=== PATIENT | male | born 1930 | race Native Hawaiian/Other Pacific Islander ===

== ENCOUNTER 2016-07-09 02:35 | Inpatient (IN) | payer MEDICARE, MEDICAID ==
--- NOTE | 2016-07-09 02:48 | ED PDOC ---
Arrival/HPI - General Chief Complaint: Shortness Of Breath Time Seen by Provider: 07/09/16 02:45 Historian: Patient - History of Present Illness Narrative History of Present Illness (Text): 07/09/16 02:47 John Novak is an 85 year old male, whose past medical history includes severe COPD (oxygen/steroid dependent), severe aortic stenosis, severe aortic regurgitation, and postherpetic neuralgia, who presents to the ED brought in by EMS for shortness of breath tonight. Patient was given Duoneb and IV fluids in the field. Limited HPI and ROS due to language barrier. Time/Duration: Other (tonight) Symptom Onset: Gradual Symptom Course: Unchanged Activities at Onset: Rest, Light Context: Home Past Medical History - Provider Review Nursing Documentation Reviewed: Yes - Infectious Disease Hx of Infectious Diseases: None - Tetanus Immunization Tetanus Immunization: Unknown - Cardiac Hx Pacemaker: No - Pulmonary Hx Respiratory Disorders: Yes Hx Asthma: No Hx Bronchitis: No Hx Chronic Obstructive Pulmonary Disease (COPD): Yes Hx Emphysema: Yes Hx Pneumonia: Yes Hx Respiratory Aspiration: No Hx Respiratory Tract Infection: No Hx Sleep Apnea: No Hx Tuberculosis: No - Neurological Hx Paralysis: No - HEENT Hx HEENT Disorder: Yes (glassees) Hx Cataracts: Yes (had sx b/l) - Renal Hx Renal Disorder: No - Endocrine/Metabolic Hx Endocrine Disorders: No - Hematological/Oncological Hx Blood Transfusions: No Hx Blood Transfusion Reaction: No - Integumentary Other/Comment: herpes zoster with neuralgia x 3 yrs, 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 Bilateral upper extremities multiple purple and red skin discolorations, right elbow dressing covering red iv attempt site, skin is thin, bilateral lower extremity multiple red and brown skin discolorations - Musculoskeletal/Rheumatological Hx Musculoskeletal Disorders: No - Gastrointestinal Hx Gastrointestinal Disorders: Yes Hx Colostomy: No Hx Crohn's Disease: No Hx Diverticulitis: No Hx Gall Bladder Disease: No Hx Gastroesophageal Reflux: No Hx Gastrointestinal Ulcer: No Hx Ileostomy: No Hx Liver Failure: No Hx Pancreatitis: No HX Swallowing Problems: No - Genitourinary/Gynecological Hx Prostate Problems: No (pt denies) Other/Comment: hx urinary retention. - Psychiatric Hx Emotional Abuse: No Hx Physical Abuse: No Hx Substance Use: No - Past Surgical History Past Surgical History: No Previous - Surgical History Hx Cardiac Catheterization: Yes Other/Comment: gastric polyp - Anesthesia Hx Anesthesia Reactions: No - Suicidal Assessment Feels Threatened In Home Enviroment: No Family/Social History - Physician Review Nursing Documentation Reviewed: Yes Family/Social History: No Known Family HX Smoking Status: Current Some Days Smoker Hx Alcohol Use: Yes (1 SCOTCH DAILY as per previous triage) Amount per day: 2 Hx Substance Use: No Hx Substance Use Treatment: No Allergies/Home Meds Allergies/Adverse Reactions: Allergies No Known Allergies Allergy (Verified 06/15/16 09:49) as per chemical tester phone Home Medications: Home Meds Medication Instructions Recorded Confirmed Esomeprazole Magnesium [Nexium] 40 mg PO DAILY 08/08/12 07/09/16 Arformoterol [Brovana] 1 armando IH BID 09/30/14 07/09/16 Budesonide [Pulmicort Respules] 0.25 mg IH TID 02/09/16 07/09/16 Prednisone 10 mg PO BID 02/09/16 07/09/16 Albuterol/Ipratropium [Combivent 1 puff IH QID 06/12/16 07/09/16 Respimat] Alendronate Sodium 70 mg PO QWK 06/12/16 07/09/16 Furosemide [Lasix] 20 mg PO DAILY 06/12/16 07/09/16 Lidocaine 5% [Lidoderm] 1 ea TD DAILY 06/12/16 07/09/16 Linaclotide [Linzess] 145 mcg PO DAILY 06/12/16 07/09/16 Pravastatin Sodium [Pravachol] 40 mg PO DAILY 06/12/16 07/09/16 Tamsulosin [Flomax] 0.4 mg PO DAILY 06/12/16 07/09/16 Review of Systems - Review of Systems Systems not reviewed;Unavailable: Language Barrier Respiratory: SOB Physical Exam Vital Signs Reviewed: Yes Vital Signs Temp Pulse Resp BP Pulse Ox 07/09/16 04:50 117 H 24 156/86 H 99 07/09/16 03:30 95 H 22 175/78 H 91 L 07/09/16 03:21 164/75 H 07/09/16 03:00 95 07/09/16 02:46 99.1 F 101 H 26 H 192/85 H 99 07/12/00 05:29 136 H 99 07/12/00 05:00 136 H 147/99 H 99 07/12/00 04:00 128 H 123/76 100 07/12/00 03:00 131 H 141/76 100 07/12/00 02:00 136 H 139/64 100 07/12/00 01:07 131 H 153/91 H 100 07/12/00 01:01 125 H 181/94 H 100 07/12/00 01:00 123 H 100 07/12/00 00:52 119 H 100 07/12/00 00:00 140 H 121/74 98 07/11/00 23:01 70 162/67 H 99 07/11/00 23:00 71 99 07/11/00 22:59 72 100 07/11/00 22:12 71 100 07/11/00 22:00 71 118/68 100 07/11/00 21:00 70 110/60 99 07/11/00 20:00 68 117/57 L 99 07/11/00 19:00 67 132/62 99 07/11/00 18:30 64 109/50 L 98 07/11/00 18:00 69 147/51 L 97 07/11/00 17:59 67 99 07/11/00 17:30 67 146/70 97 07/11/00 17:00 65 105/45 L 99 07/11/00 16:30 64 112/50 L 98 07/11/00 16:00 63 133/59 L 99 07/11/00 15:30 61 141/68 99 07/11/00 15:00 62 109/57 L 99 07/11/00 14:30 63 93/50 L 99 07/11/00 14:23 65 99 07/11/00 14:00 66 102/42 L 98 07/11/00 13:30 65 159/59 H 97 07/11/00 13:00 67 144/63 96 07/11/00 12:30 135 H 120/78 96 07/11/00 12:01 139 H 150/86 07/11/00 12:00 148 H 07/11/00 11:59 136 H 97 07/11/00 11:30 136 H 154/83 H 98 07/11/00 11:00 118 H 120/84 96 07/11/00 10:30 126 H 156/88 H 89 L 07/11/00 10:01 161 H 97 07/11/00 10:00 160 H 144/82 95 07/11/00 09:30 84 150/78 96 07/11/00 09:00 140 H 119/69 100 07/11/00 08:30 133 H 116/46 L 100 07/11/00 08:00 67 97/57 L 99 07/11/00 07:31 69 100 07/11/00 07:30 64 109/59 L 100 07/11/00 07:12 62 108/53 L 100 07/11/00 07:00 59 L 115/57 L 100 07/11/00 06:30 60 116/59 L 100 07/11/00 06:00 61 112/49 L 100 07/11/00 05:30 63 152/67 H 100 07/11/00 05:02 64 100 07/11/00 05:00 64 146/66 100 07/11/00 04:30 64 146/65 100 07/11/00 04:00 64 144/66 100 07/11/00 03:30 64 129/67 100 07/11/00 03:00 64 123/63 100 07/11/00 02:31 56 L 100 07/11/00 02:30 56 L 131/63 100 07/11/00 02:00 59 L 118/64 100 07/11/00 01:30 59 L 120/64 100 07/11/00 01:00 64 124/62 100 07/11/00 00:38 65 100 07/11/00 00:30 64 117/65 100 07/11/00 00:00 64 126/65 100 07/10/00 23:30 57 L 108/61 100 07/10/00 23:00 61 121/68 100 07/10/00 22:30 63 103/55 L 100 07/10/00 22:00 57 L 104/54 L 100 07/10/00 21:30 63 107/60 100 07/10/00 21:00 76 103/56 L 100 07/10/00 20:30 63 108/63 100 07/10/00 20:18 63 100 07/10/00 20:00 63 120/63 100 07/10/00 19:30 59 L 130/68 100 07/10/00 19:00 64 141/65 100 07/10/00 18:51 66 126/73 100 07/10/00 18:30 129 H 108/57 L 100 07/10/00 18:12 126 H 100 07/10/00 18:00 132 H 106/83 100 07/10/00 17:30 145 H 73/36 L 100 07/10/00 17:14 134 H 76/39 L 100 07/10/00 17:12 126 H 96/55 L 100 07/10/00 17:00 61 181/79 H 100 07/10/00 16:40 60 165/72 H 100 07/10/00 16:33 67 100 07/10/00 16:20 66 144/71 100 07/10/00 16:18 68 139/72 100 07/10/00 16:09 72 77/44 L 100 07/10/00 16:07 71 15 86/47 L 100 07/10/00 16:00 72 24 160/79 H 100 07/10/00 15:40 160 H 82/52 L 100 07/10/00 15:20 139 H 77/43 L 100 07/10/00 15:00 70/38 L 07/10/00 14:59 139 H 100 07/10/00 14:40 139 H 75/30 L 100 07/10/00 14:30 148 H 75/47 L 100 07/10/00 14:22 119 H 07/10/00 14:20 120 H 79/38 L 100 07/10/00 14:02 121 H 100 07/10/00 14:00 125 H 86/51 L 100 07/10/00 13:40 142 H 71/35 L 100 07/10/00 13:28 143 H 78/39 L 100 07/10/00 13:27 150 H 07/10/00 13:20 146 H 80/38 L 100 07/10/00 13:00 143 H 80/52 L 100 07/10/00 12:52 146 H 100 07/10/00 12:40 149 H 106/51 L 100 07/10/00 12:20 147 H 84/45 L 100 07/10/00 12:17 159 H 100 07/10/00 12:08 142 H 70/47 L 100 07/10/00 12:00 146 H 65/37 L 100 07/10/00 11:40 142 H 74/39 L 100 07/10/00 11:33 140 H 70/45 L 100 07/10/00 11:20 142 H 62/36 L 100 07/10/00 11:02 172 H 76/30 L 100 07/10/00 11:00 171 H 77/50 L 100 07/10/00 10:58 175 H 100 07/10/00 10:40 175 H 104/56 L 100 07/10/00 10:32 173 H 80/41 L 100 07/10/00 10:18 161 H 73/41 L 100 07/10/00 10:00 86 73/46 L 100 07/10/00 09:01 90 147/94 H 99 07/10/00 09:00 93 H 100 07/10/00 08:51 96 H 30 H 83/63 L 07/10/00 08:50 97 H 25 H 99 07/10/00 08:49 87 20 0/0 L 98 07/10/00 08:48 95 H 17 68/45 L 93 L 07/10/00 08:46 96 H 38 H 86/50 L 99 07/10/00 08:45 98 H 106/45 L 96 07/10/00 08:44 104 H 19 116/78 97 07/10/00 08:43 107 H 66 H 0/0 L 95 07/10/00 08:42 148 H 29 H 180/84 H 91 L 07/10/00 08:25 112 H 29 H 98 07/10/00 08:00 98 H 28 H 177/92 H 98 07/10/00 07:00 95 H 20 181/78 H 97 07/10/00 06:53 96 H 41 H 97 07/10/00 06:00 102 H 29 H 167/68 H 98 07/10/00 05:00 88 20 151/64 H 99 07/10/00 04:00 87 17 154/66 H 97 07/10/00 03:00 85 26 H 157/75 H 99 07/10/00 02:00 92 H 18 143/75 99 07/10/00 01:00 90 13 145/68 98 07/10/00 00:00 91 H 32 H 158/71 H 98 07/09/00 23:00 90 24 150/62 99 07/09/00 22:00 88 18 141/74 100 07/09/00 21:00 93 H 44 H 136/76 84 L 07/09/00 20:00 98 H 32 H 156/76 H 97 07/09/00 19:01 92 H 36 H 144/56 L 96 07/09/00 19:00 88 38 H 83 L 07/09/00 18:00 92 H 34 H 144/72 100 07/09/00 17:00 87 21 141/72 99 07/09/00 16:01 95 H 31 H 107/63 100 07/09/00 16:00 96 H 22 07/09/00 15:55 95 H 33 H 96 07/09/00 15:01 89 30 H 127/69 98 07/09/00 15:00 90 17 67 L 07/09/00 14:00 94 H 98/74 L 99 07/09/00 13:59 91 H 22 99 07/09/00 13:00 95 H 31 H 119/60 89 L 07/09/00 12:48 91 H 46 H 105/53 L 99 07/09/00 12:00 98 H 19 100 07/09/00 11:00 101 H 33 H 121/67 100 07/09/00 10:20 97 H 25 H 130/74 98 07/09/00 10:00 99 H 26 H 96 07/09/00 09:00 95 H 20 117/49 L 98 07/09/00 08:00 90 18 134/71 96 07/09/00 07:00 96 H 142/73 94 L 07/09/00 06:11 91 H 23 97 07/09/00 06:01 97 H 21 162/55 H 95 07/09/00 06:00 96 H 33 H 94 L 07/09/00 05:58 96 H 24 157/78 H 96 07/09/00 05:53 96 H 27 H Temperature: Afebrile Blood Pressure: Hypertensive Pulse: Regular Respiratory Rate: Normal Appearance: Positive for: Well-Appearing, Non-Toxic, Comfortable Pain Distress: None Mental Status: Positive for: Alert and Oriented X 3 - Systems Exam Head: Present: Atraumatic, Normocephalic Pupils: Present: PERRL Extroacular Muscles: Present: EOMI Conjunctiva: Present: Normal Mouth: Present: Moist Mucous Membranes Neck: Present: Normal Range of Motion Respiratory/Chest: Present: Rales. No: Accessory Muscle Use Cardiovascular: Present: Regular Rate and Rhythm, Normal S1, S2. No: Murmurs Abdomen: Present: Normal Bowel Sounds. No: Tenderness, Distention, Peritoneal Signs Back: Present: Normal Inspection Upper Extremity: Present: Normal Inspection. No: Cyanosis, Edema Lower Extremity: Present: Normal Inspection. No: Edema Neurological: Present: GCS=15, CN II-XII Intact, Speech Normal Skin: Present: Warm, Dry, Normal Color. No: Rashes Psychiatric: Present: Alert, Oriented x 3, Normal Insight, Normal Concentration Medical Decision Making ED Course and Treatment: 07/09/16 02:47 Impression: 85 year old male complaining of shortness of breath tonight. Differential Diagnosis include but are not limited to: CHF vs. COPD vs. ACS vs. pneumonia Plan: -- EKG -- Chest X-ray -- Labs, cardiac enzymes, BNP, VBG, blood cultures -- Reassess and disposition Prior Visits: Notes and results from previous visits were reviewed. On 06/12/2016, pt was seen in the ED for worsening shortness of breath. Pt admitted to the hospital for further evaluation. Progress Notes: Reviewed EKG, sinus tachycardia at 103 bpm[address] Non-specific ST/T wave changes. 07/09/16 02:56 Reviewed radiology, Chest X-ray shows CHF. Lasix ordered. 07/09/16 03:49 Pt placed on BiPAP. Case discussed with medical planner business administration teacher, who is aware and agrees with plan. 07/09/16 04:[address] Rooney, housekeeping supervisor, who is aware and agrees to evaluate pt in ED. 07/09/16 04:[address] Rooney, present in ED to evaluate pt, states pt can go to ICU. 07/09/16 04:[address] Farias, covering for Dr. Craig, who is aware and agrees with plan. Pt will be admitted to ICU for CHF under Dr. Craig's service. Requests Dr. Arroyo on consult. - Critical Care Critical Care Minutes: 30 minutes Narrative Critical Care (Text): Management of CHF - Lab Interpretations Microbiology Results: Microbiology Results 07/09/16 04:00 Blood-Venous Blood Culture - Preliminary NO GROWTH AFTER 3 DAYS 07/09/16 03:05 Blood-Venous Blood Culture - Preliminary NO GROWTH AFTER 3 DAYS Lab Results: 07/09/16 03:05 07/09/16 03:05 Lab Results 07/09/16 03:05: WBC 11.2 H, RBC 4.30, Hgb 12.2 L, Hct 38.9 L, MCV 90.5, MCH 28.4 , MCHC 31.4, RDW 15.6 H, Plt Count 139, MPV 9.4, Gran % 88.1 H, Lymph % (Auto) 5.7 L, Rolette % (Auto) 6.1 H, Eos % (Auto) 0.0 L, Baso % (Auto) 0.1, Gran # 9.82 H , Lymph # 0.6 L, Rolette # 0.7 H, Eos # 0.0, Baso # 0.01, PT 10.0, INR 0.93, pO2 105 H, VBG pH 7.25 L, VBG pCO2 81.0 H*, VBG HCO3 35.5 H, VBG Total CO2 38.0 H, VBG O2 Sat (Calc) 98.6 H, VBG Base Excess 5.4 H, VBG Potassium 4.9, Glucose 123 H, Lactate 0.8, FiO2 21.0, Sodium 135.0, Potassium 4.7, Chloride 101.0, Carbon Dioxide 33, Anion Gap 11, BUN 24 H, Creatinine 0.7, Est GFR ( Amer) > 60 , Est GFR (Non-Af Amer) > 60, Random Glucose 127 H, Calcium 8.5, Total Bilirubin 0.6, AST 36, ALT 25, Alkaline Phosphatase 56, Lactate Dehydrogenase 451, Total Creatine Kinase 30 L, Troponin I 0.02 D, NT-Pro-B Natriuret Pep 2730 H, Total Protein 6.4, Albumin 3.5, Globulin 2.9, Albumin/Globulin Ratio 1.2 , Venous Blood Potassium 4.9 I have reviewed the lab results: Yes - RAD Interpretation Radiology Orders: 07/09/16 02:49 CHEST PORTABLE [RAD] Stat - EKG Interpretation Interpreted by ED Physician: Yes Type: 12 lead EKG - Medication Orders Current Medication Orders: Acetaminophen (Tylenol 650 Mg Supp) 650 mg RC Q6H PRN PRN Reason: Fever >100.4 F Last Admin: 07/11/16 11:27 Dose: 650 MG Albuterol/Ipratropium (Duoneb 3 Mg/0.5 Mg (3 Ml) Ud) 3 ml IH Q2H PRN PRN Reason: Shortness of Breath Albuterol/Ipratropium (Duoneb 3 Mg/0.5 Mg (3 Ml) Ud) 3 ml IH [id number] [facility] Last Admin: 07/12/16 07:30 Dose: 3 ML Enoxaparin Sodium (Lovenox) 30 mg SC DAILY MISSY PRN Reason: Protocol Last Admin: 07/10/16 10:07 Dose: 30 MG Subcutaneous Administrations Document 07/10/16 10:07 ALIPM (Rec: 07/10/16 10:07 [id number]) Injection Site MAR Injection Site Left Abdomen Charges for Administration # of Subcutaneous Administrations 1 Furosemide (Lasix) 40 mg IVP Q12 [facility] Last Admin: 07/10/16 21:34 Dose: 40 MG MAR Blood Pressure Document 07/10/16 21:34 AMA (Rec: 07/10/16 21:34 AMA [id number]) Blood Pressure Blood Pressure (100/60-150/90) 107/60 IVP Administration Document 07/10/16 21:34 AMA (Rec: 07/10/16 21:34 AMA [id number]) Charges for Administration # of IVP Administrations 1 Ceftriaxone Sodium (Rocephin 1 Gram Ivpb) 100 mls @ 100 mls/hr IVPB DAILY [facility] PRN Reason: Protocol Last Admin: 07/11/16 09:05 Dose: 100 MLS/HR eMAR Start Stop Document 07/11/16 09:05 [facility] (Rec: 07/11/16 09:05 [id number]) Intravenous Solution Start Date 07/11/16 Start Time 11:30 End Date 07/11/16 End time 12:30 Total Infusion Time 60 Fentanyl Citrate (Fentanyl Citrate/Sodium Chloride 1 Mg/100 Ml) 100 mls @ 2 mls /hr IV .Q24H PRN; Protocol; 20 MCG/HR PRN Reason: TITRATE PER MD ORDER Last Titration: 07/11/16 07:17 Dose: 0 MCG/HR Titration Intervention Document 07/11/16 07:17 ALIPM (Rec: 07/11/16 07:29 [id number][facility] Titration Dosing Titration Dose 0 IV Rate 0 Intake/Decrease Pause Midazolam 100 mg/100ml in NS (Midazolam 100 Mg/100ml In Ns) 100 mls @ 1 mls/hr IV .Q24H PRN; Protocol; 1 MG/HR PRN Reason: Agitation Last Titration: 07/11/16 07:17 Dose: 0 MG/HR Titration Intervention Document 07/11/16 07:17 ALIPM (Rec: 07/11/16 07:[address] [id number]) Titration Dosing Titration Dose 0 IV Rate 0 Intake/Decrease Pause Phenylephrine HCl 40 mg/ (Sodium Chloride) 254 mls @ 38.1 mls/hr IV .Q6H40M PRN ; Protocol; 100 MCG/MIN PRN Reason: TITRATE PER MD ORDER Last Titration: 07/11/16 07:15 Dose: 0 MCG/MIN Titration Intervention Document 07/11/16 07:15 ALIPM (Rec: 07/11/16 07:[address] [id number]) Titration Dosing Titration Dose 0 IV Rate 0 Intake/Decrease Pause Heparin Sodium/Sodium Chloride (Heparin 00578 Units/250ml 1/2 Normal Saline) 250 mls @ 9.144 mls/hr IV .Q24H PRN; Protocol; 18 UNITS/KG/HR PRN Reason: ADJUST RATE PER PROTOCOL Last Admin: 07/11/16 22:48 Dose: 8.128 MLS/HR Titration Intervention Document 07/11/16 22:48 NATACHA (Rec: 07/11/16 22:49 NATACHA [id number]) Titration Intake Container Volume 250 Titration Dosing Titration Dose 16 IV Rate 8.128 Intake/Decrease Running eMAR Start Stop Document 07/11/16 22:48 NATACHA (Rec: 07/11/16 22:49 NATACHA [id number]) Intravenous Solution Start Date 07/11/16 Start Time 22:48 End Date 07/12/16 End time 10:00 Total Infusion Time 672 Doxycycline Hyclate 100 mg/ (Sodium Chloride) 100 mls @ 100 mls/hr IVPB Q12 MISSY PRN Reason: Protocol Last Admin: 07/11/16 22:43 Dose: 100 MLS/HR eMAR Start Stop Document 07/11/16 22:43 NATACHA (Rec: 07/11/16 22:44 NATACHA [id number]) Intravenous Solution Start Date 07/11/16 Start Time 22:43 End Date 07/11/16 End time 23:43 Total Infusion Time 60 MEROPENEM-0.9% SODIUM CHLORIDE (Meropenem 1g/Ns 100ml Ivpb) 100 mls @ 100 mls/ hr IVPB Q12 MISSY PRN Reason: Protocol Stop: 07/16/16 10:01 Last Admin: 07/11/16 22:42 Dose: 100 MLS/HR eMAR Start Stop Document 07/11/16 22:42 NATACHA (Rec: 07/11/16 22:43 NATACHA [id number]) Intravenous Solution Start Date 07/11/16 Start Time 22:43 End Date 07/11/16 End time 23:43 Total Infusion Time 60 Methylprednisolone (Solu-Medrol) 40 mg IVP Q12 [facility] Last Admin: 07/11/16 22:46 Dose: 40 MG IVP Administration Document 07/11/16 22:46 JGLORIA (Rec: 07/11/16 22:46 JGLORIA [id number]) Charges for Administration # of IVP Administrations 1 Pantoprazole Sodium (Protonix Inj) 40 mg IVP DAILY [facility] Last Admin: 07/11/16 09:05 Dose: 40 MG IVP Administration Document 07/11/16 09:05 ALIPM (Rec: 07/11/16 09:[address] [id number]) Charges for Administration # of IVP Administrations 1 Discontinued Medications Acetaminophen (Tylenol 325 Mg Supp) 325 mg RC Q6H PRN PRN Reason: Fever >100.4 F Albuterol/Ipratropium (Duoneb 3 Mg/0.5 Mg (3 Ml) Ud) Confirm Administered Dose 6 ml .ROUTE .STK-MED ONE Stop: 07/09/16 03:48 Amiodarone HCl (Amiodarone 150mg/3 Ml Vial) Confirm Administered Dose 150 mg .ROUTE .STK-MED ONE Stop: 07/10/16 11:08 Digoxin (Lanoxin) 0.125 mg IVP ONCE ONE Stop: 07/11/16 08:44 Last Admin: 07/11/16 08:54 Dose: 0.125 MG MAR Apical Pulse Rate Document 07/11/16 08:54 ALIPM (Rec: 07/11/16 08:[address] [id number]) Apical Pulse Rate Apical Pulse Rate (60-90 beats/min) 154 IVP Administration Document 07/11/16 08:54 ALIPM (Rec: 07/11/16 08:[address] [id number]) Charges for Administration # of IVP Administrations 1 Digoxin (Lanoxin) 0.25 mg IVP ONCE ONE Stop: 07/11/16 13:15 Last Admin: 07/11/16 13:47 Dose: 0.25 MG MAR Apical Pulse Rate Document 07/11/16 13:47 ALIPM (Rec: 07/11/16 13:[address] [id number]) Apical Pulse Rate Apical Pulse Rate (60-90 beats/min) 65 IVP Administration Document 07/11/16 13:47 ALIPM (Rec: 07/11/16 13:[address] [id number]) Charges for Administration # of IVP Administrations 1 Furosemide (Lasix) 40 mg IVP ONCE ONE Stop: 07/09/16 02:57 Last Admin: 07/09/16 03:21 Dose: 40 MG MAR Blood Pressure Document 07/09/16 03:21 [email or web address] (Rec: 07/09/16 03:21 [email or web address] [id number]) Blood Pressure Blood Pressure (100/60-150/90) 164/75 IVP Administration Document 07/09/16 03:21 [email or web address] (Rec: 07/09/16 03:21 [email or web address] [id number]) Charges for Administration # of IVP Administrations 1 Furosemide (Lasix) Confirm Administered Dose 40 mg .ROUTE .STK-MED ONE Stop: 07/09/16 03:04 Last Admin: 07/09/16 03:19 Dose: Haloperidol Lactate (Haldol) 1 mg IVP STAT STA PRN Reason: Protocol Stop: 07/10/16 04:29 Last Admin: 07/10/16 05:07 Dose: 1 MG Behavioural Document 07/10/16 05:07 RODRIGUEZ (Rec: 07/10/16 05:07 RODRIGUEZ [id number]) Behavior Behavior for Medication: Anxiety IVP Administration Document 07/10/16 05:07 RODRIGUEZ (Rec: 07/10/16 05:07 RODRIGUEZ [id number]) Charges for Administration # of IVP Administrations 1 Heparin Sodium (Porcine) (Heparin) 3,600 units IV ONCE ONE PRN Reason: Protocol Stop: 07/10/16 17:47 Last Admin: 07/10/16 17:56 Dose: 3,600 UNITS eMAR Start Stop Document 07/10/16 17:56 ALIPM (Rec: 07/10/16 17:[address] [id number]) Intravenous Solution Start Date 07/10/16 Start Time 17:56 End Date 07/10/16 End time 18:00 Total Infusion Time 4 Levofloxacin/Dextrose (Levaquin 500mg) 100 mls @ 100 mls/hr IVPB DAILY MISSY Last Admin: 07/10/16 10:07 Dose: 100 MLS/HR eMAR Start Stop Document 07/10/16 10:07 ALIPM (Rec: 07/10/16 10:[address] [id number]) Intravenous Solution Start Date 07/10/16 Start Time 10:07 End Date 07/10/16 End time 11:07 Total Infusion Time 60 Propofol (Diprivan) Confirm Administered Dose 100 mls @ ud .ROUTE .STK-MED ONE Stop: 07/10/16 08:37 Last Admin: 07/10/16 08:56 Dose: 50 MG Sodium Chloride (Sodium Chloride 0.9%) 1,000 mls @ 999 mls/hr IV .Q1H1M STA Stop: 07/10/16 09:56 Last Admin: 07/10/16 08:56 Dose: 999 MLS/HR eMAR Start Stop Document 07/10/16 08:56 ALIPM (Rec: 07/10/16 10:[address] [id number]) Intravenous Solution Start Date 07/10/16 Start Time 08:56 End Date 07/10/16 End time 09:56 Total Infusion Time 60 Amiodarone HCl/Dextrose (Nexterone 150 Mg In Dextrose 100 Ml (Premix)) 100 mls @ 600 mls/hr IVPB ONCE ONE PRN Reason: Protocol Stop: 07/10/16 11:14 Last Admin: 07/10/16 11:12 Dose: 600 MLS/HR eMAR Start Stop Document 07/10/16 11:12 ALIPM (Rec: 07/10/16 11:[address] [id number]) Intravenous Solution Start Date 07/10/16 Start Time 11:13 End Date 07/10/16 End time 11:23 Total Infusion Time 10 Sodium Chloride (Sodium Chloride 0.9%) 1,000 mls @ 999 mls/hr IV .Q1H1M STA Stop: 07/10/16 12:05 Last Admin: 07/10/16 11:18 Dose: 999 MLS/HR eMAR Start Stop Document 07/10/16 11:18 ALIPM (Rec: 07/10/16 11:[address] [facility] [id number]) Intravenous Solution Start Date 07/10/16 Start Time 11:18 End Date 07/10/16 End time 12:18 Total Infusion Time 60 Sodium Chloride (Sodium Chloride 0.9%) 1,000 mls @ 999 mls/hr IV .Q1H1M STA Stop: 07/10/16 13:15 Last Admin: 07/10/16 12:15 Dose: 999 MLS/HR eMAR Start Stop Document 07/10/16 12:15 ALIPM (Rec: 07/10/16 12:[address] [facility] [id number]) Intravenous Solution Start Date 07/10/16 Start Time 12:15 End Date 07/10/16 End time 13:15 Total Infusion Time 60 Amiodarone HCl/Dextrose (Nexterone 150 Mg In Dextrose 100 Ml (Premix)) 100 mls @ 600 mls/hr IVPB ONCE ONE PRN Reason: Protocol Stop: 07/10/16 13:51 Last Admin: 07/10/16 13:51 Dose: 600 MLS/HR eMAR Start Stop Document 07/10/16 13:51 ALIPM (Rec: 07/10/16 13:[address] [facility] [id number]) Intravenous Solution Start Date 07/10/16 Start Time 13:52 End Date 07/10/16 End time 14:02 Total Infusion Time 10 Sodium Chloride (Sodium Chloride 0.9%) 1,000 mls @ 999 mls/hr IV .Q1H1M STA Stop: 07/10/16 14:43 Last Admin: 07/10/16 13:53 Dose: 999 MLS/HR eMAR Start Stop Document 07/10/16 13:53 ALIPM (Rec: 07/10/16 13:[address] [facility] [id number]) Intravenous Solution Start Date 07/10/16 Start Time 13:53 End Date 07/10/16 End time 14:53 Total Infusion Time 60 Sodium Chloride (Sodium Chloride 0.9%) 1,000 mls @ 999 mls/hr IV .Q1H1M STA Stop: 07/10/16 17:26 Last Admin: 07/10/16 17:02 Dose: 999 MLS/HR eMAR Start Stop Document 07/10/16 17:02 ALIPM (Rec: 07/10/16 17:02 ALIPM [id number]) Intravenous Solution Start Date 07/10/16 Start Time 17:02 End Date 07/10/16 End time 18:02 Total Infusion Time 60 Amiodarone HCl/Dextrose (Nexterone 360 Mg In D5w 200 Ml (Premix)) 200 mls @ 33.333 mls/hr IV .Q6H MISSY; 1 MG/MIN PRN Reason: Protocol Stop: 07/10/16 23:54 Last Admin: 07/10/16 17:37 Dose: 33.333 MLS/HR eMAR Start Stop Document 07/10/16 17:37 ALIPM (Rec: 07/10/16 17:37 ALIPM [id number]) Intravenous Solution Start Date 07/10/16 Start Time 17:37 Amiodarone HCl/Dextrose (Nexterone 360 Mg In D5w 200 Ml (Premix)) 200 mls @ 16.667 mls/hr IV .Q12H MISSY; 0.5 MG/MIN PRN Reason: Protocol Stop: 07/11/16 15:56 Last Admin: 07/11/16 11:26 Dose: 16.667 MLS/HR MAR Pulse and Blood Pressure Document 07/11/16 11:26 ALIPM (Rec: 07/11/16 11:26 ALIPM [id number]) Pulse Pulse Rate (60-90) 131 Blood Pressure Blood Pressure (100/60-150/90) 120/84 eMAR Start Stop Document 07/11/16 11:26 ALIPM (Rec: 07/11/16 11:26 ALIPM [id number]) Intravenous Solution Start Date 07/11/16 Start Time 11:26 Vancomycin HCl (Vancomycin 1gm) 250 mls @ 167 mls/hr IVPB STAT STA PRN Reason: Protocol Stop: 07/11/16 09:41 Last Admin: 07/11/16 08:57 Dose: 167 MLS/HR eMAR Start Stop Document 07/11/16 08:57 ALIPM (Rec: 07/11/16 08:58 ALIPM [id number]) Intravenous Solution Start Date 07/11/16 Start Time 08:57 End Date 07/11/16 End time 11:00 Total Infusion Time 123 Methylprednisolone (Solu-Medrol) 60 mg IVP Q12 MISSY Last Admin: 07/10/16 21:34 Dose: 60 MG IVP Administration Document 07/10/16 21:34 AMA (Rec: 07/10/16 21:34 AMA [id number]) Charges for Administration # of IVP Administrations 1 Metoprolol Tartrate (Lopressor) 5 mg IVP ONCE STA Stop: 07/11/16 10:10 Last Admin: 07/11/16 10:14 Dose: 5 MG MAR Pulse and Blood Pressure Document 07/11/16 10:14 ALIPM (Rec: 07/11/16 10:14 ALIPM [id number]) Pulse Pulse Rate (60-90) 153 Blood Pressure Blood Pressure (100/60-150/90) 144/82 IVP Administration Document 07/11/16 10:14 ALIPM (Rec: 07/11/16 10:14 ALIPM [id number]) Charges for Administration # of IVP Administrations 1 Metoprolol Tartrate (Lopressor) Confirm Administered Dose 5 mg IVP .STK-MED ONE Stop: 07/12/16 00:40 Metoprolol Tartrate (Lopressor) 2.5 mg IVP ONCE ONE Stop: 07/12/16 00:39 Last Admin: 07/12/16 00:46 Dose: 2.5 MG MAR Pulse and Blood Pressure Document 07/12/16 00:46 JZI (Rec: 07/12/16 00:47 JZI [id number]) Pulse Pulse Rate (60-90) 159 Blood Pressure Blood Pressure (100/60-150/90) 121/74 IVP Administration Document 07/12/16 00:46 JZI (Rec: 07/12/16 00:47 JZI [id number]) Charges for Administration # of IVP Administrations 1 Midazolam HCl (Versed Inj) 5 mg IVP ONCE STA Stop: 07/11/16 13:01 Last Admin: 07/11/16 13:10 Dose: 5 MG IVP Administration Document 07/11/16 13:10 ALIPM (Rec: 07/11/16 13:10 ALIPM [id number]) Charges for Administration # of IVP Administrations 1 Morphine Sulfate (Morphine) 2 mg IVP STAT STA Stop: 07/09/16 02:58 Last Admin: 07/09/16 03:22 Dose: 2 MG MAR Pain Assessment Document 07/09/16 03:22 [email or web address] (Rec: 07/09/16 03:23 [email or web address] [id number]) Pain Reassessment Is this a pain reassessment? No Sleep Is patient sleeping during reassessment? No Presence of Pain Presence of Pain Yes Pain Scale Used Pain Scale Used Numeric Location Pain Location Body Site Chest Description Description Constant Intensity of Pain at present 8 Pain Behavior Facial Grimacing Aggravating Factors Changing Position Alleviating Factors/Management Position Change Techniques Alleviating Factors Medication IVP Administration Document 07/09/16 03:22 [email or web address] (Rec: 07/09/16 03:23 [email or web address] [id number]) Charges for Administration # of IVP Administrations 1 Morphine Sulfate (Morphine) Confirm Administered Dose 2 mg .ROUTE .STK-MED ONE Stop: 07/09/16 03:04 Last Admin: 07/09/16 03:19 Dose: Pantoprazole Sodium (Protonix Inj) 40 mg IVP Q12 MISSY Last Admin: 07/10/16 21:35 Dose: 40 MG IVP Administration Document 07/10/16 21:35 AMA (Rec: 07/10/16 21:35 AMA [id number]) Charges for Administration # of IVP Administrations 1 Propofol (Diprivan) 5 mg IVP ONCE ONE Stop: 07/10/16 08:57 Last Admin: 07/10/16 08:56 Dose: - Scribe Statement The provider has reviewed the documentation as recorded by the Dioni Gibson Provider Attestation: All medical record entries made by the Juan Cibimtiaz were at my direction and personally dictated by me. I have reviewed the chart and agree that the record accurately reflects my personal performance of the history, physical exam, medical decision making, and the department course for this patient. I have also personally directed, reviewed, and agree with the discharge instructions and disposition. Disposition/Present on Arrival - Present on Arrival Any Indicators Present on Arrival: No History of DVT/PE: No History of Uncontrolled Diabetes: No Urinary Catheter: No History of Decub. Ulcer: No History Surgical Site Infection Following: None - Disposition Have Diagnosis and Disposition been Completed?: Yes Diagnosis: COPD (chronic obstructive pulmonary disease), Congestive heart failure Disposition: HOSPITALIZED Disposition Time: 04:40 Condition: FAIR
[2016-07-09] MEDS ORDERED: Morphine 2 mg/ml ISec IVP STA (02:57)
[2016-07-09] MEDS ORDERED: Morphine 2 mg/ml ISec ONE (03:03)
[2016-07-09 03:18] LABS: ADD MANUAL DIFF? NO
[2016-07-09 03:22] LABS: VENOUS BLOOD GAS BASE EXCESS 5.4 mmol/L (0.0-2.0); VENOUS BLOOD PH 7.25 (7.32-7.43)
[2016-07-09 03:26] LABS: BASO # 0.01 [, K/mm3] (0.0-2.0); BASO % 0.1 % (0.0-3.0); GRAN # 9.82 (1.4-6.5); GRAN % 88.1 % (50.0-68.0); HEMATOCRIT 38.9 % (42.0-52.0); LYMPH # 0.6 (1.2-3.4); LYMPH % 5.7 % (22.0-35.0); MEAN CELL VOLUME 90.5 fL (80.0-105.0); MEAN CORPUSCULAR HEMOGLOBIN 28.4 pg (25.0-35.0); MEAN CORPUSCULAR HGB CONC 31.4 g/dl (31.0-37.0); MEAN PLATELET VOLUME 9.4 fl (7.0-11.0); MONO # 0.7 (0.1-0.6); MONO % 6.1 % (1.0-6.0); PLATELET COUNT 139 [, 10^3/uL] (120.0-450.0); RED CELL DISTRIBUTION WIDTH 15.6 % (11.5-14.5); WHITE BLOOD COUNT 11.2 [, 10^3/ul] (4.5-11.0)
[2016-07-09 03:31] LABS: INR 0.93 (0.93-1.08)
[2016-07-09 03:38] LABS: ALB/GLOB RATIO 1.2 (1.1-1.8); ALKALINE PHOSPHATASE 56 U/L (38-133); ALT/SGPT 25 U/L (7-56); AST/SGOT 36 U/L (15-59); BILIRUBIN,TOTAL 0.6 mg/dL (0.2-1.3); BLOOD UREA NITROGEN 24 mg/dL (7-21); CALCIUM 8.5 mg/dL (8.4-10.5); CARBON DIOXIDE 33 mmol/L (21-33); CHLORIDE 95 mmol/L (98-107); GFR AFRICAN-AMERICAN > 60; GLUCOSE,RANDOM 127 mg/dL (70-110); POTASSIUM 4.7 mmol/L (3.6-5.0); SODIUM 134 mmol/L (132-148); TOTAL PROTEIN 6.4 g/dL (5.8-8.3)
[2016-07-09] MEDS ORDERED: Albuterol-Ipratrop 3 mg / 0.5 (3 ml) UD ONE (03:47)
[2016-07-09 03:50] LABS: TROPONIN I 0.02 ng/mL
[2016-07-09] MEDS ORDERED: Albuterol-Ipratrop 3 mg / 0.5 (3 ml) UD IH PRN (04:45)
[2016-07-09] MEDS: MethylPREDNISolone 40 mg Vial IVP SCH ×2 (05:11→22:35)
--- NOTE | 2016-07-09 05:38 | CP.PCM.CON ---
<Bakari Delgado - Last Filed: 07/09/16 05:26> History of Present Illness - History of Present Illness History of Present Illness: ICU consult note Bakari Delgado, PGY-1 Internal Medicine HPI: This is an 85 yo Armenian M with PMH severe COPD (oxygen/steroid dependent) , abdominal mass identified on CT, progressive weight loss, severe aortic stenosis, severe aortic regurgitation, urinary retention, and postherpetic neuralgia, who presents to the ED for shortness of breath tonight. ROS and HPI are limited due to language barrier (patient and accompanying family speak only Armenian) and malfunction of pipe layer screen available in the ED (unable to connect to translating service despite multiple attempts). Information obtained from prior charting and from information provided by ED. Patient was given Duoneb and IV fluids in the field. At time of exam, was on Bipap in the ED but otherwise resting comfortably. Was last seen for similar complaint at [facility] on 06/12/16, discharged on 06/13/16 after refusing to stay for further testing /monitoring. PMH: as above PSH: Cardiac cath, Gastric polyp removal SHx: Still sometimes smoker, 1-2 ppd for 6 years down to intermittently smoking a few cigarettes; denies alcohol or drug use (as of 06/12/16) FHx: non-contributory PMD: Dr. Craig Review of Systems - Review of Systems Systems not reviewed;Unavailable: Language Barrier (patient and family are Armenian-speaking only, pipe layer system malfunctioning and not available at time of exam) Past Patient History - Infectious Disease Hx of Infectious Diseases: None - Tetanus Immunizations Tetanus Immunization: Unknown - Past Social History Smoking Status: Current Some Days Smoker - CARDIAC Hx Pacemaker: No - PULMONARY Hx Respiratory Disorders: Yes Hx Asthma: No Hx Bronchitis: No Hx Chronic Obstructive Pulmonary Disease (COPD): Yes Hx Emphysema: Yes Hx Pneumonia: Yes Hx Respiratory Aspiration: No Hx Respiratory Tract Infection: No Hx Sleep Apnea: No Hx Tuberculosis: No - NEUROLOGICAL Hx Paralysis: No - HEENT Hx HEENT Problems: Yes (glassees) Hx Cataracts: Yes (had sx b/l) - RENAL Hx Chronic Kidney Disease: No - ENDOCRINE/METABOLIC Hx Endocrine Disorders: No - HEMATOLOGICAL/ONCOLOGICAL Hx Blood Transfusions: No Hx Blood Transfusion Reaction: No - INTEGUMENTARY Other/Comment: herpes zoster with neuralgia x 3 yrs, 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 Bilateral upper extremities multiple purple and red skin discolorations, right elbow dressing covering red iv attempt site, skin is thin, bilateral lower extremity multiple red and brown skin discolorations - MUSCULOSKELETAL/RHEUMATOLOGICAL Hx Musculoskeletal Disorders: No - GASTROINTESTINAL Hx Gastrointestinal Disorders: Yes Hx Colostomy: No Hx Crohn's Disease: No Hx Diverticulitis: No Hx Gall Bladder Disease: No Hx Gastroesophageal Reflux: No Hx Ileostomy: No Hx Liver Failure: No Hx Pancreatitis: No HX Swallowing Problems: No - GENITOURINARY/GYNECOLOGICAL Hx Prostate Problems: No (pt denies) Other/Comment: hx urinary retention. - PSYCHIATRIC Hx Emotional Abuse: No Hx Physical Abuse: No Hx Substance Use: No - SURGICAL HISTORY Hx Cardiac Catheterization: Yes Other/Comment: gastric polyp - ANESTHESIA Hx Anesthesia Reactions: No Meds Allergies/Adverse Reactions: Allergies Allergy/AdvReac Type Severity Reaction Status Date / Time No Known Allergies Allergy Verified 06/15/16 09:49 - Medications Medications: Current Medications Albuterol/Ipratropium (Duoneb 3 Mg/0.5 Mg (3 Ml) Ud) 3 ml IH Q2H PRN PRN Reason: Shortness of Breath Albuterol/Ipratropium (Duoneb 3 Mg/0.5 Mg (3 Ml) Ud) 3 ml IH [id number] MISSY Furosemide (Lasix) 40 mg IVP Q12 MISSY Methylprednisolone (Solu-Medrol) 60 mg IVP Q12 MISSY Last Admin: 07/09/16 05:11 Dose: 60 mg Physical Exam - Constitutional Appears: Non-toxic, No Acute Distress Additional comments: Limited due to language barrier short of breath on BiPAP - Head Exam Head Exam: ATRAUMATIC, NORMAL INSPECTION, NORMOCEPHALIC - Eye Exam Eye Exam: EOMI, Normal appearance. absent: Conjunctival injection, Scleral icterus - ENT Exam Additional comments: unable to assess due to wearing bipap mask - Respiratory Exam Respiratory Exam: Accessory Muscle Use, Decreased Breath Sounds, Rhonchi ( diffusely), Wheezes (diffusely). absent: Chest Wall Tenderness, Clear to Auscultation Bilateral, NORMAL BREATHING PATTERN - Cardiovascular Exam Cardiovascular Exam: Tachycardia, REGULAR RHYTHM, +S1, +S2. absent: Bradycardia , Irregular Rhythm, JVD, RRR, +S4 Additional comments: rapid rate regular rhythm - GI/Abdominal Exam GI & Abdominal Exam: Normal Bowel Sounds, Soft. absent: Diminished Bowel Sounds , Distended, Firm, Hyperactive Bowel Sounds, Hypoactive Bowel Sounds, Rigid - Extremities Exam Extremities exam: Positive for: pedal edema, pedal pulses present. Negative for : tenderness - Neurological Exam Additional comments: alert, tracks staff in room appropriately, responds to physical and verbal stimuli - Psychiatric Exam Additional comments: unable to assess mood or affect not overtly agitated at time of exam - Skin Skin Exam: Dry, Intact, Normal Color, Warm Results - Vital Signs Recent Vital Signs: Last Vital Signs Temp 99.1 F 07/09/16 02:46 Pulse 117 H 07/09/16 04:50 Resp 24 07/09/16 04:50 BP 156/86 H 07/09/16 04:50 Pulse Ox 99 07/09/16 04:50 - Labs Result Diagrams: 07/09/16 03:05 07/09/16 03:05 Labs: Laboratory Results - last 24 hr 07/09/16 03:05 WBC 11.2 H RBC 4.30 Hgb 12.2 L Hct 38.9 L MCV 90.5 MCH 28.4 MCHC 31.4 RDW 15.6 H Plt Count 139 MPV 9.4 Gran % 88.1 H Lymph % (Auto) 5.7 L [place] % (Auto) 6.1 H Eos % (Auto) 0.0 L Baso % (Auto) 0.1 Gran # 9.82 H Lymph # 0.6 L [place] # 0.7 H Eos # 0.0 Baso # 0.01 PT 10.0 INR 0.93 pO2 105 H VBG pH 7.25 L VBG pCO2 81.0 H* VBG HCO3 35.5 H VBG Total CO2 38.0 H VBG O2 Sat (Calc) 98.6 H VBG Base Excess 5.4 H VBG Potassium 4.9 Sodium 134 Chloride 95 L Glucose 123 H Lactate 0.8 FiO2 21.0 Potassium 4.7 Carbon Dioxide 33 Anion Gap 11 BUN 24 H Creatinine 0.7 Est GFR ( Amer) > 60 Est GFR (Non-Af Amer) > 60 Random Glucose 127 H Calcium 8.5 Total Bilirubin 0.6 AST 36 ALT 25 Alkaline Phosphatase 56 Lactate Dehydrogenase 451 Total Creatine Kinase 30 L Troponin I 0.02 D NT-Pro-B Natriuret Pep 2730 H Total Protein 6.4 Albumin 3.5 Globulin 2.9 Albumin/Globulin Ratio 1.2 Venous Blood Potassium 4.9 - EKG Data EKG Interpreted by: Myself Rate: Tachycardia Assessment & Plan - Assessment and Plan (Free Text) Assessment: This is an 85 yo Armenian M with PMH severe COPD (oxygen/steroid dependent), abdominal mass identified on CT, progressive weight loss, severe aortic stenosis , severe aortic regurgitation, urinary retention, and postherpetic neuralgia, who presents to the ED for acute onset shortness of breath requiring BiPAP. He is being admitted to the ICU for suspected COPD exacerbation vs CHF exacerbation. Plan: Neuro: -awake, alert, follows verbal and physical cues appropriately CV: -tachycardic, likely 2/2 shortness of breath -Sinus tachy to 103 with biatrial enlargement on admission EKG, repeat EKG in AM ordered -Trop x1 0.02, 2 more ordered q6 -Cardio consulted, appreciate any recs -CXR suspicious for CHF/fluid overload, but no cardiomegaly -diuresing with IV Lasix 40mg IV q12 -Echo ordered -Strict I's and O's, daily weights Pulm: -shortness of breath 2/2 severe O2-/steroid-dependent COPD vs CHF, may be multifactorial -On Bipap, 14/6/16/35% -Maintain SaO2 > 90% and paO2 > 60 -ABG with AM labs, f/u -As per Primary, Pulm consulted, appreciate any recs -diuresing with Lasix for possible fluid overload -Duonebs q4 missy and q2 prn -Solumedrol 60mg IV q12 (first dose given in ED) -Head of bed to 30 degrees GI: -heart-healthy diet -Protonix for Ppx Renal: -Diuresing with Lasix 40mg IV q12 -Cr 0.7 (baseline is 0.7-1.0 per charting), continue to monitor -monitor and replete electrolytes as needed -avoid nephrotoxic drugs where feasible -maintain euglycemia (140-180), not euvolemia due to active diuresis Heme: -Hgb 12.1, baseline per charting is 13-14 -continue to monitor -DVT ppx with SCDs ID: -mild leukocytosis of 11.2, but on chronic steroids, so this is likely 2/2 steroids -afebrile -holding on antibiotics at this time, will revisit if leukocytosis worsen or patient becomes febrile Dispo: ICU for COPD/CHF exacerbation, pending input from Cardio and Pulm, on BiPAP FEN: Heart-healthy diet Access: Peripheral IV Consults: Pulm, Cardio Ppx: SCDs for DVT, Protonix for GI Patient seen, reviewed, and discussed with attending, Dr. Rooney. - Date & Time Date: 07/09/16 Time: 06:02 <Johnny Rooney MD - Last Filed: 07/09/16 07:05> Meds - Medications Medications: Current Medications Albuterol/Ipratropium (Duoneb 3 Mg/0.5 Mg (3 Ml) Ud) 3 ml IH Q2H PRN PRN Reason: Shortness of Breath Albuterol/Ipratropium (Duoneb 3 Mg/0.5 Mg (3 Ml) Ud) 3 ml IH [id number] MISSY Furosemide (Lasix) 40 mg IVP Q12 MISSY Methylprednisolone (Solu-Medrol) 60 mg IVP Q12 MISSY Last Admin: 07/09/16 05:11 Dose: 60 mg Pantoprazole Sodium (Protonix Inj) 40 mg IVP Q12 MISSY Results - Vital Signs Recent Vital Signs: Last Vital Signs Temp 99.1 F 07/09/16 02:46 Pulse 117 H 07/09/16 04:50 Resp 24 07/09/16 04:50 BP 156/86 H 07/09/16 04:50 Pulse Ox 99 07/09/16 04:50 - Labs Result Diagrams: 07/09/16 03:05 07/09/16 03:05 Labs: Laboratory Results - last 24 hr 07/09/16 06:13 pCO2 85 H* pO2 69.0 L HCO3 34.8 H ABG pH 7.22 L ABG Total CO2 37.4 H ABG O2 Saturation 94.8 L ABG O2 Content 16.1 ABG Base Excess 4.5 H ABG Hemoglobin 12.5 ABG Carboxyhemoglobin 3.1 H POC ABG HHb (Measured) 5.0 ABG Methemoglobin 0.7 ABG O2 Capacity 17.0 Hgb O2 Saturation 91.2 L FiO2 35.0 Attending/Attestation - Attestation I have personally seen and examined this patient.: Yes I have fully participated in the care of the patient.: Yes I have reviewed all pertinent clinical information: Yes Notes (Text): 07/09/16 07:01 -I agree with the above consult note completed by the resident physician. -Briefly, the patient is a 85 year old Armenian man with a history of severe COPD (on home O2) and severe aortic stenosis who presents with respiratory distress. Of note, the patient nor his speak any [place]. Translation via online racing board marker was attempted but couldn't be used because the system was down. Therefore, details of history were limited and reliant on previous medical records. He will be admitted to the ICU for acute respiratory distress due to a combination of acute COPD and acute CHF exacerbation. He will be placed on Duo- nebs Q4hrs around the clock as well as PRN. We will continue with Bipap. Also, IV Solumedrol and IV Lasix. A cards consult and 2D-echo have been ordered.
[2016-07-09 06:16] LABS: ARTERIAL BLOOD GAS HCO3 34.8 mmol/L (21-28); ARTERIAL BLOOD GAS O2 CONTENT 16.1 ML/dl (15-23); ARTERIAL BLOOD GAS PH 7.22 (7.35-7.45); ARTERIAL BLOOD HGB O2 SAT 91.2 % (95.0-98.0); CARBOXYHEMOGLOBIN 3.1 % (0.5-1.5); METHEMOGLOBIN 0.7 % (0.0-3.0)
[2016-07-09 07:09] LABS: ADD MANUAL DIFF? NO
[2016-07-09 07:17] LABS: BASO # 0.01 [, K/mm3] (0.0-2.0); BASO % 0.1 % (0.0-3.0); GRAN # 9.74 (1.4-6.5); GRAN % 92.5 % (50.0-68.0); HEMATOCRIT 40.8 % (42.0-52.0); LYMPH # 0.4 (1.2-3.4); LYMPH % 3.4 % (22.0-35.0); MEAN CELL VOLUME 90.5 fL (80.0-105.0); MEAN CORPUSCULAR HEMOGLOBIN 27.7 pg (25.0-35.0); MEAN CORPUSCULAR HGB CONC 30.6 g/dl (31.0-37.0); MEAN PLATELET VOLUME 9.3 fl (7.0-11.0); MONO # 0.4 (0.1-0.6); PLATELET COUNT 154 [, 10^3/uL] (120.0-450.0); RED CELL DISTRIBUTION WIDTH 15.6 % (11.5-14.5); WHITE BLOOD COUNT 10.5 [, 10^3/ul] (4.5-11.0)
[2016-07-09] MEDS: Albuterol-Ipratrop 3 mg / 0.5 (3 ml) UD IH SCH ×5 (07:30→23:35)
--- NOTE | 2016-07-09 08:06 | CP.CCUPN ---
<Ru Aguirre - Last Filed: 07/09/16 15:27> CCU Subjective - Physician Review Subjective (Free Text): 07/09/16 15:22 Pt s&e w ICU attending. Pt breathing better on BIPAP. c/o SOB. Wants to leave the hospital bacuase pt feels anxious. Explained the case and plans to family. Denies CP/diziness/weaknessF/C/N/V/D 07/09/16 15:24 CCU Objective - Vital Signs / Intake & Output Vital Signs (Last 4 hours): Vital Signs Temp Pulse Resp BP Pulse Ox 07/09/16 06:14 99 F 07/09/16 04:50 117 H 24 156/86 H 99 - Physical Exam Head: Positive for: Atraumatic, Normocephalic Pupils: Positive for: PERRL Extroacular Muscles: Positive for: EOMI Conjunctiva: Positive for: Normal Mouth: Positive for: Moist Mucous Membranes Neck: Positive for: Normal Range of Motion Respiratory/Chest: Positive for: Rales. Negative for: Accessory Muscle Use Cardiovascular: Positive for: Regular Rate and Rhythm, Normal S1, S2. Negative for: Murmurs Abdomen: Negative for: Tenderness, Distention, Peritoneal Signs Back: Positive for: Normal Inspection Upper Extremity: Positive for: Normal Inspection. Negative for: Cyanosis, Edema Lower Extremity: Positive for: Normal Inspection. Negative for: Edema Neurological: Positive for: GCS=15, CN II-XII Intact, Speech Normal Skin: Positive for: Warm, Dry, Other (ecchymosis ). Negative for: Rashes, Normal Color Psychiatric: Positive for: Alert, Oriented x 3, Normal Concentration - Medications Active Medications: Active Medications Generic Name Dose Route Start Last Admin Trade Name Freq PRN Reason Stop Dose Admin Albuterol/Ipratropium 3 ml 07/09/16 04:45 Duoneb 3 Mg/0.5 Mg (3 Ml) Ud IH Q2H PRN Shortness of Breath Albuterol/Ipratropium 3 ml 07/09/16 07:30 Duoneb 3 Mg/0.5 Mg (3 Ml) Ud IH [id number] LUCIO Furosemide 40 mg 07/09/16 10:00 Lasix IVP Q12 LUCIO Levofloxacin/Dextrose 100 mls @ 100 mls/hr 03/20/17 10:00 Levaquin 500mg IVPB DAILY FOR[facility], [facility]–1983 Ceftriaxone Sodium 100 mls @ 100 mls/hr 07/09/16 10:00 Rocephin 1 Gram Ivpb IVPB DAILY FOR[facility], [facility]–1983 Protocol Methylprednisolone 60 mg 07/09/16 05:00 07/09/16 05:11 Solu-Medrol IVP 60 mg Q12 LUCIO Administration Pantoprazole Sodium 40 mg 07/09/16 10:00 Protonix Inj IVP Q12 LUCIO - Patient Studies Lab Studies: Lab Studies 07/09/16 07/09/16 Range/Units 07:09 06:13 WBC 10.5 (4.5-11.0) 10^3/ul RBC 4.51 (3.5-6.1) 10^6/uL Hgb 12.5 L (14.0-18.0) gm/dL Hct 40.8 L (42.0-52.0) % MCV 90.5 (80.0-105.0) fL MCH 27.7 (25.0-35.0) pg MCHC 30.6 L (31.0-37.0) g/dl RDW 15.6 H (11.5-14.5) % Plt Count 154 (120.0-450.0) 10^3/uL MPV 9.3 (7.0-11.0) fl Gran % 92.5 H (50.0-68.0) % Lymph % (Auto) 3.4 L (22.0-35.0) % [place] % (Auto) 4.0 (1.0-6.0) % Eos % (Auto) 0.0 L (1.5-5.0) % Baso % (Auto) 0.1 (0.0-3.0) % Gran # 9.74 H (1.4-6.5) Lymph # 0.4 L (1.2-3.4) [place] # 0.4 (0.1-0.6) Eos # 0.0 (0.0-0.7) Baso # 0.01 (0.0-2.0) K/mm3 pCO2 85 H* (35-45) mm/Hg pO2 69.0 L (80-100) mm/Hg HCO3 34.8 H (21-28) mmol/L ABG pH 7.22 L (7.35-7.45) ABG Total CO2 37.4 H (22-28) mmol.L ABG O2 Saturation 94.8 L (95-98) % ABG O2 Content 16.1 (15-23) ML/dl ABG Base Excess 4.5 H (-2.0-3.0) mmol/L ABG Hemoglobin 12.5 (11.7-17.4) g/dL ABG Carboxyhemoglobin 3.1 H (0.5-1.5) % POC ABG HHb (Measured) 5.0 (0-5) % ABG Methemoglobin 0.7 (0.0-3.0) % ABG O2 Capacity 17.0 (16-24) mL/dl Hgb O2 Saturation 91.2 L (95.0-98.0) % FiO2 35.0 % Laboratory Results - last 24 hr 07/09/16 07/09/16 06:13 07:09 WBC 10.5 RBC 4.51 Hgb 12.5 L Hct 40.8 L MCV 90.5 MCH 27.7 MCHC 30.6 L RDW 15.6 H Plt Count 154 MPV 9.3 Gran % 92.5 H Lymph % (Auto) 3.4 L [place] % (Auto) 4.0 Eos % (Auto) 0.0 L Baso % (Auto) 0.1 Gran # 9.74 H Lymph # 0.4 L [place] # 0.4 Eos # 0.0 Baso # 0.01 pCO2 85 H* pO2 69.0 L HCO3 34.8 H ABG pH 7.22 L ABG Total CO2 37.4 H ABG O2 Saturation 94.8 L ABG O2 Content 16.1 ABG Base Excess 4.5 H ABG Hemoglobin 12.5 ABG Carboxyhemoglobin 3.1 H POC ABG HHb (Measured) 5.0 ABG Methemoglobin 0.7 ABG O2 Capacity 17.0 Hgb O2 Saturation 91.2 L FiO2 35.0 EKG/Cardiology Studies: Cardiology / EKG Studies 07/09/16 10:00 EKG [ELECTROCARDIOGRAM] DAILY Comment: Reason For Exam: shortness of breath Review of Systems - Review of Systems Systems not reviewed;Unavailable: Language Barrier Assessment/Plan - Assessment and Plan (Free Text) Assessment: This is an 85 yo [place]ian M with PMH severe COPD (oxygen/steroid dependent), abdominal mass identified on CT, progressive weight loss, severe aortic stenosis , severe aortic regurgitation, urinary retention, and postherpetic neuralgia, who presents to the ED for acute onset shortness of breath requiring BiPAP. He is being admitted to the ICU for suspected COPD exacerbation vs CHF exacerbation. Plan: Neuro: -awake, alert, follows verbal and physical cues appropriately CV: Keep MAP 65+ -Trop x1 0.02, 2 more ordered q6 -Cardio consulted -CXR suspicious for CHF/fluid overload, but no cardiomegaly -diuresing with IV Lasix 40mg IV q12 -Echo: sever aortic stenosi,s 50+% EF -Strict I's and O's, daily weights Pulm: -shortness of breath 2/2 severe O2-/steroid-dependent COPD vs CHF, may be multifactorial -On Bipap, 09/12//35% -Maintain SaO2 > 90% and paO2 > 60 -ABG : respiratory acidosis -As per Primary, Pulm consulted: Increased IPAP to 20 and EPAP to 8, Levaquin and rocephin -diuresing with Lasix for possible fluid overload -Duonebs q4 lucio and q2 prn -Solumedrol 60mg IV q12 -Head of bed to 30 degrees GI: -heart-healthy diet -Protonix for Ppx Renal: -Diuresing with Lasix 40mg IV q12 -Cr 0.7 (baseline is 0.7-1.0 per charting), continue to monitor -monitor and replete electrolytes as needed -avoid nephrotoxic drugs where feasible -maintain euglycemia (140-180), not euvolemia due to active diuresis Heme: -Hgb 12.5, baseline per charting is 13-14 -continue to monitor -DVT ppx with SCDs, LVX sc ID: -afebrile -Levaquin, Rocephin Dispo: ICU for COPD/CHF exacerbation on BiPAP FEN: Heart-healthy diet Access: Peripheral IV Consults: Pulm, Cardio Ppx: LVX, SCDs for DVT, Protonix for GI Patient seen, reviewed, and discussed with attending <Cami DE LA GARZA,Ry H - Last Filed: 07/09/16 16:15> CCU Objective - Vital Signs / Intake & Output Intake and Output (Last 8hrs): Intake & Output 07/09/16 07/09/16 07/09/16 06:59 14:59 22:59 Weight 112 lb 112 lb Other: Voiding Method Urinal - Medications Active Medications: Active Medications Generic Name Dose Route Start Last Admin Trade Name Freq PRN Reason Stop Dose Admin Albuterol/Ipratropium 3 ml 07/09/16 04:45 Duoneb 3 Mg/0.5 Mg (3 Ml) Ud IH Q2H PRN Shortness of Breath Albuterol/Ipratropium 3 ml 07/09/16 07:30 07/09/16 15:39 Duoneb 3 Mg/0.5 Mg (3 Ml) Ud IH 3 ml [id number] LUCIO Administration Enoxaparin Sodium 30 mg 07/09/16 12:15 07/09/16 14:05 Lovenox SC 30 mg DAILY LUCIO Administration Protocol Furosemide 40 mg 07/09/16 10:00 07/09/16 09:37 Lasix IVP 40 mg Q12 LUCIO Administration Levofloxacin/Dextrose 100 mls @ 100 mls/hr 07/09/16 10:00 07/09/16 09:37 Levaquin 500mg IVPB 100 mls/hr DAILY LUCIO Administration Ceftriaxone Sodium 100 mls @ 100 mls/hr 07/09/16 10:00 07/09/16 09:37 Rocephin 1 Gram Ivpb IVPB 100 mls/hr DAILY LUCIO Administration Protocol Methylprednisolone 60 mg 07/09/16 05:00 07/09/16 05:11 Solu-Medrol IVP 60 mg Q12 LUCIO Administration Pantoprazole Sodium 40 mg 07/09/16 10:00 07/09/16 09:38 Protonix Inj IVP 40 mg Q12 LUCIO Administration - Patient Studies Lab Studies: Lab Studies 07/09/16 07/09/16 07/09/16 Range/Units 15:50 15:15 09:43 WBC (4.5-11.0) 10^3/ul RBC (3.5-6.1) 10^6/uL Hgb (14.0-18.0) gm/dL Hct (42.0-52.0) % MCV (80.0-105.0) fL MCH (25.0-35.0) pg MCHC (31.0-37.0) g/dl RDW (11.5-14.5) % Plt Count (120.0-450.0) 10^3/uL MPV (7.0-11.0) fl Gran % (50.0-68.0) % Lymph % (Auto) (22.0-35.0) % [place] % (Auto) (1.0-6.0) % Eos % (Auto) (1.5-5.0) % Baso % (Auto) (0.0-3.0) % Gran # (1.4-6.5) Lymph # (1.2-3.4) [place] # (0.1-0.6) Eos # (0.0-0.7) Baso # (0.0-2.0) K/mm3 pCO2 59 H 77 H* (35-45) mm/Hg pO2 61.0 L 82.0 (80-100) mm/Hg HCO3 31.1 H 37.0 H (21-28) mmol/L ABG pH 7.33 L 7.29 L (7.35-7.45) ABG Total CO2 32.9 H 39.4 H (22-28) mmol.L ABG O2 Saturation 92.4 L 97.4 (95-98) % ABG O2 Content 14.2 L 17.6 (15-23) ML/dl ABG Base Excess 3.9 H 7.5 H (-2.0-3.0) mmol/L ABG Hemoglobin 11.3 L 13.4 (11.7-17.4) g/dL ABG Carboxyhemoglobin 2.3 H 3.0 H (0.5-1.5) % POC ABG HHb (Measured) 7.4 H 2.5 (0-5) % ABG Methemoglobin 0.8 1.4 (0.0-3.0) % ABG O2 Capacity 15.4 L 18.1 (16-24) mL/dl Hgb O2 Saturation 89.5 L 93.0 L (95.0-98.0) % FiO2 35.0 35.0 % Sodium (132-148) mmol/L Potassium (3.6-5.0) mmol/L Chloride (98-107) mmol/L Carbon Dioxide (21-33) mmol/L Anion Gap (10-20) BUN (7-21) mg/dL Creatinine (0.5-1.4) mg/dL Est GFR ( Amer) Est GFR (Non-Af Amer) Random Glucose (70-110) mg/dL Calcium (8.4-10.5) mg/dL Phosphorus (2.5-4.5) mg/dL Magnesium (1.7-2.2) mg/dL Total Bilirubin (0.2-1.3) mg/dL AST (15-59) U/L ALT (7-56) U/L Alkaline Phosphatase (38-133) U/L Lactate Dehydrogenase 466 (333-699) U/L Total Creatine Kinase 47 (35-230) U/L Troponin I 0.04 ng/mL Total Protein (5.8-8.3) g/dL Albumin (3.0-4.8) g/dL Globulin gm/dL Albumin/Globulin Ratio (1.1-1.8) 07/09/16 07/09/16 07/09/16 Range/Units 08:30 07:09 06:13 WBC 10.5 (4.5-11.0) 10^3/ul RBC 4.51 (3.5-6.1) 10^6/uL Hgb 12.5 L (14.0-18.0) gm/dL Hct 40.8 L (42.0-52.0) % MCV 90.5 (80.0-105.0) fL MCH 27.7 (25.0-35.0) pg MCHC 30.6 L (31.0-37.0) g/dl RDW 15.6 H (11.5-14.5) % Plt Count 154 (120.0-450.0) 10^3/uL MPV 9.3 (7.0-11.0) fl Gran % 92.5 H (50.0-68.0) % Lymph % (Auto) 3.4 L (22.0-35.0) % [place] % (Auto) 4.0 (1.0-6.0) % Eos % (Auto) 0.0 L (1.5-5.0) % Baso % (Auto) 0.1 (0.0-3.0) % Gran # 9.74 H (1.4-6.5) Lymph # 0.4 L (1.2-3.4) [place] # 0.4 (0.1-0.6) Eos # 0.0 (0.0-0.7) Baso # 0.01 (0.0-2.0) K/mm3 pCO2 85 H* (35-45) mm/Hg pO2 69.0 L (80-100) mm/Hg HCO3 34.8 H (21-28) mmol/L ABG pH 7.22 L (7.35-7.45) ABG Total CO2 37.4 H (22-28) mmol.L ABG O2 Saturation 94.8 L (95-98) % ABG O2 Content 16.1 (15-23) ML/dl ABG Base Excess 4.5 H (-2.0-3.0) mmol/L ABG Hemoglobin 12.5 (11.7-17.4) g/dL ABG Carboxyhemoglobin 3.1 H (0.5-1.5) % POC ABG HHb (Measured) 5.0 (0-5) % ABG Methemoglobin 0.7 (0.0-3.0) % ABG O2 Capacity 17.0 (16-24) mL/dl Hgb O2 Saturation 91.2 L (95.0-98.0) % FiO2 35.0 % Sodium 138 (132-148) mmol/L Potassium 4.9 (3.6-5.0) mmol/L Chloride 94 L (98-107) mmol/L Carbon Dioxide 32 (21-33) mmol/L Anion Gap 17 (10-20) BUN 28 H (7-21) mg/dL Creatinine 0.8 (0.5-1.4) mg/dL Est GFR ( Amer) > 60 Est GFR (Non-Af Amer) > 60 Random Glucose 121 H (70-110) mg/dL Calcium 8.7 (8.4-10.5) mg/dL Phosphorus 5.0 H (2.5-4.5) mg/dL Magnesium 2.1 (1.7-2.2) mg/dL Total Bilirubin 0.6 (0.2-1.3) mg/dL AST 39 (15-59) U/L ALT 23 (7-56) U/L Alkaline Phosphatase 57 (38-133) U/L Lactate Dehydrogenase 446 (333-699) U/L Total Creatine Kinase 28 L (35-230) U/L Troponin I 0.05 D ng/mL Total Protein 6.8 (5.8-8.3) g/dL Albumin 3.7 (3.0-4.8) g/dL Globulin 3.1 gm/dL Albumin/Globulin Ratio 1.2 (1.1-1.8) Laboratory Results - last 24 hr 07/09/16 07/09/16 07/09/16 06:13 07:09 08:30 WBC 10.5 RBC 4.51 Hgb 12.5 L Hct 40.8 L MCV 90.5 MCH 27.7 MCHC 30.6 L RDW 15.6 H Plt Count 154 MPV 9.3 Gran % 92.5 H Lymph % (Auto) 3.4 L [place] % (Auto) 4.0 Eos % (Auto) 0.0 L Baso % (Auto) 0.1 Gran # 9.74 H Lymph # 0.4 L [place] # 0.4 Eos # 0.0 Baso # 0.01 pCO2 85 H* pO2 69.0 L HCO3 34.8 H ABG pH 7.22 L ABG Total CO2 37.4 H ABG O2 Saturation 94.8 L ABG O2 Content 16.1 ABG Base Excess 4.5 H ABG Hemoglobin 12.5 ABG Carboxyhemoglobin 3.1 H POC ABG HHb (Measured) 5.0 ABG Methemoglobin 0.7 ABG O2 Capacity 17.0 Hgb O2 Saturation 91.2 L FiO2 35.0 Sodium 138 Potassium 4.9 Chloride 94 L Carbon Dioxide 32 Anion Gap 17 BUN 28 H Creatinine 0.8 Est GFR ( Amer) > 60 Est GFR (Non-Af Amer) > 60 Random Glucose 121 H Calcium 8.7 Phosphorus 5.0 H Magnesium 2.1 Total Bilirubin 0.6 AST 39 ALT 23 Alkaline Phosphatase 57 Lactate Dehydrogenase 446 Total Creatine Kinase 28 L Troponin I 0.05 D Total Protein 6.8 Albumin 3.7 Globulin 3.1 Albumin/Globulin Ratio 1.2 07/09/16 07/09/16 07/09/16 09:43 15:15 15:50 WBC RBC Hgb Hct MCV MCH MCHC RDW Plt Count MPV Gran % Lymph % (Auto) [place] % (Auto) Eos % (Auto) Baso % (Auto) Gran # Lymph # [place] # Eos # Baso # pCO2 77 H* 59 H pO2 82.0 61.0 L HCO3 37.0 H 31.1 H ABG pH 7.29 L 7.33 L ABG Total CO2 39.4 H 32.9 H ABG O2 Saturation 97.4 92.4 L ABG O2 Content 17.6 14.2 L ABG Base Excess 7.5 H 3.9 H ABG Hemoglobin 13.4 11.3 L ABG Carboxyhemoglobin 3.0 H 2.3 H POC ABG HHb (Measured) 2.5 7.4 H ABG Methemoglobin 1.4 0.8 ABG O2 Capacity 18.1 15.4 L Hgb O2 Saturation 93.0 L 89.5 L FiO2 35.0 35.0 Sodium Potassium Chloride Carbon Dioxide Anion Gap BUN Creatinine Est GFR ( Amer) Est GFR (Non-Af Amer) Random Glucose Calcium Phosphorus Magnesium Total Bilirubin AST ALT Alkaline Phosphatase Lactate Dehydrogenase 466 Total Creatine Kinase 47 Troponin I 0.04 Total Protein Albumin Globulin Albumin/Globulin Ratio EKG/Cardiology Studies: Cardiology / EKG Studies 07/09/16 10:00 EKG [ELECTROCARDIOGRAM] DAILY Comment: Reason For Exam: shortness of breath Attending/Attestation - Attestation I have personally seen and examined this patient.: Yes I have fully participated in the care of the patient.: Yes I have reviewed all pertinent clinical information: Yes Notes (Text): 07/09/16 16:11 85 y/o M w/ end stage COPD and CHF w/ aortic stenosis admitted to ICU due to acute respiratory failure requiring NIPPV On BIPAP 09/12 in hopes of c02 clearance to appx 60-65. Solumedrol and nebulizers started. CXR shows increased pulmonary vascular congestion , Lasix given , hoping for 1 L urine output. A. Stenosis mod- severe, with family and patient aware but no plans acute evaluation and correction. Needs paliative care consult due to end stage diagnosis . cc time 45 min
[2016-07-09 08:15] LABS: ALB/GLOB RATIO 1.2 (1.1-1.8); ALKALINE PHOSPHATASE 57 U/L (38-133); ALT/SGPT 23 U/L (7-56); AST/SGOT 39 U/L (15-59); BILIRUBIN,TOTAL 0.6 mg/dL (0.2-1.3); BLOOD UREA NITROGEN 28 mg/dL (7-21); CALCIUM 8.7 mg/dL (8.4-10.5); CARBON DIOXIDE 32 mmol/L (21-33); CHLORIDE 94 mmol/L (98-107); GFR AFRICAN-AMERICAN > 60; GLUCOSE,RANDOM 121 mg/dL (70-110); MAGNESIUM 2.1 mg/dL (1.7-2.2); POTASSIUM 4.9 mmol/L (3.6-5.0); SODIUM 138 mmol/L (132-148); TOTAL PROTEIN 6.8 g/dL (5.8-8.3)
[2016-07-09 08:26] VITALS: BMI 19.8
--- NOTE | 2016-07-09 08:59 | RAD ---
HISTORY: sob COMPARISON: 06/12/2016 FINDINGS: LUNGS: New opacity at right base and upper right lung suspicious for pneumonia. PLEURA: No significant pleural effusion identified, no pneumothorax apparent. CARDIOVASCULAR: Normal. OSSEOUS STRUCTURES: No significant abnormalities. VISUALIZED UPPER ABDOMEN: Normal. OTHER FINDINGS: None. IMPRESSION: New right basilar and right upper lobe opacity suspicious for pneumonia. Followup advised.
[2016-07-09 09:09] LABS: TROPONIN I 0.05 ng/mL
[2016-07-09] MEDS: cefTRIAXone 1 gm 100 ML IVPB SCH (09:37)
[2016-07-09 09:54] LABS: ARTERIAL BLOOD GAS O2 CAPACITY 18.1 mL/dl (16-24); ARTERIAL BLOOD GAS O2 CONTENT 17.6 ML/dl (15-23); ARTERIAL BLOOD GAS PH 7.29 (7.35-7.45); HHB 2.5 % (0-5); METHEMOGLOBIN 1.4 % (0.0-3.0)
--- NOTE | 2016-07-09 10:48 | CON ---
DATE: 07/09/2016 REASON FOR CONSULTATION: Chronic obstructive pulmonary disease. REFERRING PHYSICIAN: Dr. Farias. History is obtained via extensive discussion with the patient and his family. I have also discussed the case with the nurse at length. I have also reviewed the chart at length. HISTORY OF PRESENT ILLNESS: The patient is an 85-year-old male with past medical history significant for end-stage chronic obstructive pulmonary disease , on oxygen and steroids at home, significant noncompliance with office followup , extensive smoking history--still smokes, severe valvular heart disease, coronary artery disease, recently found abdominal mass (family refused additional evaluation), who presents to [facility] with a 4-day history of worsening shortness of breath at rest, dyspnea on exertion, cough, and minimal sputum production. There is no history of chest pain, coughing up of blood or chest pain made worse with deep respirations. The family does state that the patient had low grade fevers at home. No history of chills or infectious exposure. No history of night sweats. There has been a decrease in appetite with weight loss over the past year. No history of leg or calf pains. No history of syncope or diaphoresis. No history of recent travel or trauma. REVIEW OF SYSTEMS: No history of nausea, vomiting or diarrhea. No acute urinary symptoms. No new neurological or musculoskeletal complaints. Rest of the review of systems is negative. ALLERGIES: No known allergies. SOCIAL HISTORY: Positive for extensive tobacco usage, still smokes. No alcohol. FAMILY HISTORY: No inheritable diseases. HOME MEDICATIONS: Include Flomax, prednisone, Pulmicort, Brovana, DuoNeb, Nexium, Lasix. PHYSICAL EXAMINATION: GENERAL: The patient is mildly short of breath, but in no acute distress. He is currently wearing BiPAP. VITAL SIGNS: Temperature is 99.0, pulse on the monitor is 103, respiratory rate 22, blood pressure 156/86. Oxygen saturation on BiPAP is 99%. HEENT: Normocephalic, atraumatic. NECK: No JVD. CARDIOVASCULAR: Systolic ejection murmur at the lower left sternal border. Questionable S3 gallop. LUNGS: Crackles at both bases. Minimal bilateral rhonchi and wheezing are appreciated. EXTREMITIES: Mild edema. No cyanosis, no clubbing. Calves are nontender to palpation. GASTROINTESTINAL: Abdomen is soft, nontender, nondistended. Bowel sounds are positive. SKIN: No acute rash. NEUROLOGIC: Limited at the present time. PERTINENT LABORATORY DATA: Chest x-ray was done this morning and reviewed. There is mild to moderate increase in the pulmonary vascular congestive changes consistent with congestive heart failure. I cannot, at this point in time, rule out an underlying infiltrate/pneumonia. CBC: White count 10.5, hemoglobin 12.5, hematocrit 40.6, platelets of 154. Arterial blood gas was done on BiPAP 14/6 with 35% oxygen. Results are: PH 7.22, pCO2 of 85, pO2 of 69. Complete metabolic profile: Chloride 95, BUN 24, glucose 127, B-type natriuretic peptide 2730. Rest of the metabolic profile is within normal limits. IMPRESSION: 1. Respiratory failure. 2. End-stage chronic obstructive pulmonary disease. 3. Congestive heart failure. 4. Severe valvular heart disease. 5. Coronary artery disease. 6. Anemia. PLAN: Again, I did discuss the case with the patient and the family at length. I have also discussed the case with the nurse at length. The patient presents to [facility] with a 4-day history of worsening pulmonary symptoms. Unfortunately, the patient continues to smoke. In addition, the patient has not been seen in our office for multiple years. I did discuss these issues with the daughter and , as well as the patient at length again this morning. I did review the x-ray as above. The x-ray is most consistent with congestive heart failure. However, again, I cannot rule out an underlying infiltrate/pneumonia. I will order a stat procalcitonin level to be done this morning. In addition, I will add ceftriaxone to the Levaquin for the time being. There are no temperatures noted. The leukocytosis has resolved. On physical exam, there is mild to moderate bronchospasm noted. I will continue with the current nebulizer treatments and add inhaled steroids. I will also continue with the current intravenous steroids. I did review the arterial blood gas as above. A severe respiratory acidosis remains. I did discuss the case with the resident at length. I have adjusted the BiPAP settings and an arterial blood gas will be done in another hour. I will be called with those results. I did have a long talk with the family in reference to possible need for intubation, as well as end of life considerations. I also discussed the case with Dr. Almanza (durable medical equipment repairer) at length. Unfortunately, the overall status/ prognosis of this patient remains poor. All are aware. I will discuss the above with the attending physician later this morning. Thank you very much for this pulmonary consultation. Pravin Arroyo MD cc: [id number] TT: 07/09/2016 10:47:01 Confirmation # [id number] Dictation # [id number] sadia VARGAS
--- NOTE | 2016-07-09 13:00 | CARD ---
APPROVED REPORT EKG Measurement Heart [id number] <Conclusion> Normal sinus rhythm Normal ECG
--- NOTE | 2016-07-09 13:03 | CARD ---
APPROVED REPORT EKG Measurement Heart [id number] [place] [id number] <Conclusion> Sinus tachycardia Biatrial enlargement Abnormal ECG
--- NOTE | 2016-07-09 13:14 | CON ---
DATE: 07/09/2016 REASON FOR CONSULTATION: Shortness of breath. HISTORY OF PRESENT ILLNESS: The patient is an 85-year-old [place] male who has a history of advanced chronic obstructive lung disease, steroid dependent, and on nasal O2 at home; history of moderate to severe aortic stenosis and aortic insufficiency on a recent echocardiograph study, who presented bec ause of shortness of breath and cough. SOCIAL HISTORY: The patient is a smoker. PAST MEDICAL HISTORY: Status post removal of a gastric polyp last May. MEDICATIONS: Albuterol inhaler q. 2 hours, Lasix 40 mg intravenous twice a day, Levaquin 500 mg intr avenously once a day, Protonix 40 mg intravenous twice a day, Rocephin 1 gram intravenously daily, So terra-Medrol 60 mg intravenously q. 12 hours. The patient is currently on BiPAP. PHYSICAL EXAMINATION: GENERAL: The patient is an elderly male who is mildly tachypneic on BiPAP, but is able to express hi mself and is very cooperative. VITAL SIGNS: Blood pressure 117/49, heart rate 88, temperature 99, respirations 26. HEENT: Normocephalic. NECK: No JVD. CHEST: Diffuse bilateral wheezing and coarse crepitations. HEART: S1, S2 regular. ABDOMEN: Soft. EXTREMITIES: Significant muscle wasting. LABORATORY DATA: SMA-7: Sodium 138, potassium 4.9, chloride 94, CO2 32, glucose 121, BUN 28, creati nine 0.8. Two sets of troponins are 0.02 and 0.05. ProBNP is 2730. Echocardiogram echocardiograph study 10/2016 revealed mild to moderate concentric left ventricular hy pertrophy with normal ejection fraction, moderate to severe aortic regurgitation and moderate to jeana re aortic stenosis, severe pulmonary hypertension. The estimated right ventricular systolic pressure was 69 mmHg. Chest x-ray revealed prominent bronchovascular markings, overinflated lungs and bihila r congestion. ASSESSMENT: 1. Exacerbation of chronic obstructive lung disease. 2. Consider underlying congestive heart failure. 3. Moderate to severe aortic stenosis as well as moderate to severe aortic insufficiency. 4. Severe pulmonary hypertension which is secondary to underlying advanced chronic obstructive pulmo nary disease. RECOMMENDATIONS: Continue current albuterol inhaler as well as Solu-Medrol. Continue IV Rocephin an d IV Levaquin. Continue Lasix 40 mg intravenous twice a day. The patient is not a suitable candidat e for beta olga therapy at all. Start subcutaneous Lovenox at 30 mg daily. Cortez Monterroso MD cc: [id number] TT: 07/09/2016 13:13:45 Confirmation # [id number] Dictation # [id number] mn
[2016-07-09] MEDS: Enoxaparin 30 mg Syringe SC SCH (14:05)
--- NOTE | 2016-07-09 14:46 | CARD ---
APPROVED REPORT EXAM: Two-dimensional and M-mode echocardiogram with Doppler and color Doppler. INDICATION Dyspnea Congestive Heart Failure 2D DIMENSIONS Left Atrium (2D)4.2 (1.6-4.0cm)IVSd1.4 (0.7-1.1cm) LVDd3.5 (3.9-5.9cm)LVOT Diameter1.7 (1.8-2.4cm) PWd1.3 (0.7-1.1cm)LVDs2.6 (2.5-4.0cm) FS (%) 25.8 %LVEF (%)51.6 (>50%) M-Mode DIMENSIONS Aortic Root2.20 (2.2-3.7cm)Aortic Cusp Exc.0.90 (1.5-2.0cm) Aortic Valve AoV Peak Quixvcns960.0cm/sAoV VTI57.9cmAO Peak GR.82mmHg LVOT Peak Ngcwtoqc001.0cm/sLVOT VTI21.20cmAO Mean GR.32mmHg GRETCHEN (VMAX)0.09ir0WFB (VTI)0.83cm2 Mitral Valve MV E Hxcgsgzc66.7cm/sMV E Peak Gr.11mmHgMV A Arcqheaz527.0cm/s MV E Mean Gr.5mmHgMV JEK261pjP/A ratio0.5 MVA (PHT)1.06cm2 TDI E/Lateral E'0.0E/Medial E'0.0 Tricuspid Valve TR Peak Jgiikgpr264lj/sRAP GLSLNCXN97zpDsCT Peak Gr.45mmHg [id number] LEFT VENTRICLE The left ventricle is normal size. There is mild to moderate concentric left ventricular hypertrophy. The left ventricular function is normal. The left ventricular ejection fraction is within the normal range. There is normal LV segmental wall motion. Transmitral Doppler flow pattern is Grade I-abnormal relaxation pattern. RIGHT VENTRICLE The right ventricle is normal size. There is normal right ventricular wall thickness. The right ventricular systolic function is normal. ATRIA The left atrium is mildly dilated. The right atrium is mildly dilated. AORTIC VALVE The aortic valve is moderately calcified. There is moderate aortic regurgitation. There is severe valvular aortic stenosis. MITRAL VALVE Mitral annular calcification is moderate to severe. Mitral regurgitation is mild. TRICUSPID VALVE There is moderate pulmonary hypertension. GREAT VESSELS The aortic root displays severe sclerocalcific changes of the aortic root. PERICARDIAL EFFUSION There is a trace loculated anterior pericardial effusion. <Conclusion> The left ventricle is normal size. There is mild to moderate concentric left ventricular hypertrophy. The left ventricular function is normal. The left ventricular ejection fraction is within the normal range. Transmitral Doppler flow pattern is Grade I-abnormal relaxation pattern. The aortic valve is moderately calcified. There is severe valvular aortic stenosis. There is moderate aortic regurgitation. There is moderate pulmonary hypertension.
[2016-07-09 15:54] LABS: ARTERIAL BLOOD GAS HCO3 31.1 mmol/L (21-28); ARTERIAL BLOOD GAS O2 CAPACITY 15.4 mL/dl (16-24); ARTERIAL BLOOD GAS O2 CONTENT 14.2 ML/dl (15-23); ARTERIAL BLOOD GAS PH 7.33 (7.35-7.45); ARTERIAL BLOOD HGB O2 SAT 89.5 % (95.0-98.0); CARBOXYHEMOGLOBIN 2.3 % (0.5-1.5); HHB 7.4 % (0-5); METHEMOGLOBIN 0.8 % (0.0-3.0)
[2016-07-09 15:58] LABS: TROPONIN I 0.04 ng/mL
--- NOTE | 2016-07-10 02:50 | HP ---
CHIEF COMPLAINT: Severe shortness of breath and fever for 3 days. HISTORY OF PRESENT ILLNESS: An 85-year-old male with history of severe end- stage COPD, oxygen and steroid dependent, who was brought to the Emergency Room by ambulance from home after developed severe shortness of breath, not improving with nebulizer treatments. The history was taken from his daughter due to patient respiratory status. Apparently, patient developed a fever 2 days ago with increase of cough and progression of shortness of breath and, despite all treatments with nebulizers and increase of prednisone dose, his condition got worse. That made him go to Emergency Room. PAST MEDICAL HISTORY: Significant for severe end-stage COPD, oxygen and steroid dependent. 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 New finding, a small mass in cecal and appendix area with normal colonoscopy in 06/2016. History of osteoarthritis, osteoporosis, history of shingles with chronic postherpetic neuralgia and chronic constipation. ALLERGIES: The patient denies any known allergies. CURRENT MEDICATIONS: Prednisone 10 mg daily, tamsulosin 0.4 mg daily, 40 mcg daily, pravastatin 40 mg daily, furosemide 20 mg daily, Nexium 40 mg daily, budesonide and Brovana through nebulizer twice a day, albuterol, DuoNeb through nebulizer as needed, O2 2l/NC . FAMILY HISTORY: Noncontributory. SOCIAL HISTORY: The patient has a long history of 6 years of smoking at least 1 pack a day. The patient continues smoking a few cigarettes daily. He denies any alcohol or drug use. The patient is retired. He lives with his . He is still independent of activity of daily living, but oxygen dependent. REVIEW OF SYSTEMS: He has history of recent progressive weight loss over the past year, at least 20 pounds. He denies any loss of appetite and he complains of fever for the past 3 days. He denies any sore throat, nasal congestion. He denies any dysphagia. The patient has chronic severe shortness of breath and chronic cough with intermittent wheezing. The patient denies any chest pain or heart palpitations. The patient denies any abdominal pain, nausea, vomiting, diarrhea. He complains of chronic constipation. He denies any rectal bleeding. The patient denies any flank pain, but he has decrease of urine stream. Patient complains of multiple joint pains, knee and low back problems and patient complains of skin problems with severe ecchymosis on upper and lower extremities. The patient complains of occasional dizziness, but denies any neurological symptoms. He complains of chronic numbness and paresthesia of the left neck at the site of old herpes zoster area. The patient denies any depression, anxiety. PHYSICAL EXAMINATION: GENERAL: The patient was examined in intensive care unit. He was sitting on the chair with BiPAP machine in mild respiratory distress. HEAD: Normocephalic, atraumatic. EYES: Pupils reactive to light. MOUTH: Oral mucosa dry. NECK: Supple. There was no neck JVD or neck masses. LUNGS: With decreased breath sounds and bilateral expiratory wheezing and some crackles in the base. HEART: Regular rhythm, rate tachycardia rate of 100 per minute. ABDOMEN: Soft, nontender, nondistended. EXTREMITIES: With no edema, severe ecchymosis on upper extremities noted. DIAGNOSTIC TESTS: CBC significant for elevated WBC 11.2, hemoglobin 12.2, hematocrit 38.9 and platelet count normal at 139. His blood gas showed pH 7.22 , pCO2 of 85, pO2 69 and O2 saturation 94.8. Chemistry showed normal electrolytes. His BUN was 24, creatinine 0.7. Troponin was negative, but BNP was high at 2700. His procalcitonin was slightly elevated at 0.55. Chest x-ray showed right basilar and right upper lobe opacity suspicious for pneumonia. EKG showed normal sinus rhythm, heart rate 91. No ST-T changes. ASSESSMENT: 1. An 85-year-old male with a history of severe chronic obstructive pulmonary disease, admitted for respiratory failure. 2. Severe chronic obstructive pulmonary disease with exacerbation. 3. Right lobe pneumonia. 4. Congestive heart failure acute and chronic. 5. History of severe aortic stenosis. 6. Pulmonary hypertension. PLAN OF TREATMENT: The patient will be maintained in intensive care unit. Respiratory status treatment will require BiPAP machine and will monitor his blood gas as needed. The patient will be maintained on Solu-Medrol IV and bronchodilators. Defect Cutter was called on consult. Due to fever, the patient had cultures done in Emergency Room, he was started on Rocephin, will be maintained on antibiotic for now. Advisor [employer] was called on consult for help to evaluate and treat patient congestive heart failure and severe aortic stenosis and pulmonary hypertension. We will monitor patient's labs and electrolytes. The patient will be also maintained on furosemide IV. Vidhi Shea MD cc: [id number] TT: 07/10/2016 02:49:42 kiah VARGAS
[2016-07-10] MEDS: Albuterol-Ipratrop 3 mg / 0.5 (3 ml) UD IH SCH ×6 (04:30→23:09)
[2016-07-10 06:13] LABS: ARTERIAL BLOOD GAS HCO3 34.4 mmol/L (21-28); ARTERIAL BLOOD GAS O2 CONTENT 17.6 ML/dl (15-23); ARTERIAL BLOOD GAS PH 7.27 (7.35-7.45); ARTERIAL BLOOD HGB O2 SAT 94.8 % (95.0-98.0); CARBOXYHEMOGLOBIN 2.1 % (0.5-1.5); HHB 2.2 % (0-5); METHEMOGLOBIN 0.9 % (0.0-3.0)
[2016-07-10 06:36] LABS: MEAN CELL VOLUME 90.9 fL (80.0-105.0); MEAN CORPUSCULAR HEMOGLOBIN 27.9 pg (25.0-35.0); MEAN CORPUSCULAR HGB CONC 30.7 g/dl (31.0-37.0); MEAN PLATELET VOLUME 9.5 fl (7.0-11.0); PLATELET COUNT 175 [, 10^3/uL] (120.0-450.0); RED CELL DISTRIBUTION WIDTH 15.5 % (11.5-14.5); WHITE BLOOD COUNT 11.6 [, 10^3/ul] (4.5-11.0)
[2016-07-10 06:40] LABS: ADD MANUAL DIFF? YES
[2016-07-10 07:21] LABS: ALB/GLOB RATIO 1.2 (1.1-1.8); BILIRUBIN,TOTAL 0.6 mg/dL (0.2-1.3); CALCIUM 8.7 mg/dL (8.4-10.5); POTASSIUM 4.7 mmol/L (3.6-5.0); TOTAL PROTEIN 7.3 g/dL (5.8-8.3)
[2016-07-10 08:28] LABS: ANISOCYTOSIS 1+; BAND 8 % (0-2); NEUTROPHIL 84 % (50.0-70.0); PLATELET ESTIMATE NORMAL (NORMAL)
[2016-07-10 08:29] LABS: LARGE PLATELETS PRESENT; OVALOCYTES SLIGHT; PLATELET CLUMPS PRESENT; POLYCHROMASIA SLIGHT
[2016-07-10 08:33] LABS: TEAR DROP CELLS SLIGHT
[2016-07-10] MEDS ORDERED: Midazolam 100 mg/100ml in NS 100 ML IV PRN (08:50)
[2016-07-10] MEDS ORDERED: Fentanyl 1000mcg/100ml NS 100 ML IV PRN (08:51)
[2016-07-10] MEDS ORDERED: Propofol 10 mg/ml Inj (20 ML) IVP ONE (08:56)
[2016-07-10] MEDS ORDERED: Sodium Chloride 0.9% 1,000 ML IV STA ×5 (08:56→16:26)
[2016-07-10] MEDS: Enoxaparin 30 mg Syringe SC SCH (10:07)
[2016-07-10] MEDS: MethylPREDNISolone 40 mg Vial IVP SCH ×2 (10:08→21:34)
[2016-07-10] MEDS: cefTRIAXone 1 gm 100 ML IVPB SCH (10:15)
--- NOTE | 2016-07-10 10:15 | PN ---
DATE: 07/10/2016(645am--730am) SUBJECTIVE: The patient appears more comfortable this morning. He is not short of breath at rest. OBJECTIVE: VITAL SIGNS: Temperature is 96.7, pulse 88, respirations 20, blood pressure 141 /74. Oxygen saturation on BiPAP is 100%. HEENT: Normocephalic, atraumatic. No JVD. CARDIOVASCULAR: Systolic ejection murmur at the low left sternal border. Questionable S3 gallop. LUNGS: Crackles at both bases. Less rhonchi. Less wheezing. EXTREMITIES: Mild edema. No cyanosis, no clubbing. Calves are nontender to palpation. GASTROINTESTINAL: Abdomen is soft, nontender, nondistended. Bowel sounds are positive. SKIN: No acute rash. NEUROLOGIC: Limited at the present time. PERTINENT LABORATORY DATA: Chest x-ray was done this morning and reviewed. The x-ray is improved with decreased pulmonary infiltrates. Arterial blood gas was ordered for the morning -- not in the computer at the present time. Procalcitonin done yesterday is very slightly elevated at 0.55. IMPRESSION: 1. Respiratory failure. 2. End-stage chronic obstructive pulmonary disease. 3. Congestive heart failure. 4. Severe valvular heart disease. 5. Coronary artery disease. 6. Anemia. PLAN: The patient appears more comfortable this morning. He is not short of breath at rest. I did discuss the case with the night nurse at length. The night nurse stated that the patient had a pretty good night. I did review the x -ray as above. The x-ray this morning is improved with decreased pulmonary infiltrates. Again, I am awaiting an arterial blood gas, not in the computer at the present time. I will be called with those results. On physical exam, there is slightly less bronchospasm noted. I will continue with the current nebulizer treatments and intravenous steroids for now. I will also continue with the current antibiotic therapy for now. The procalcitonin is only slightly elevated. Consultation with Dr. Monterroso (cardiology) is noted. The patient remains on Lasix/afterload reduction. Clinical status of the patient is somewhat improved compared to the initial presentation. However, again, the overall status/prognosis of this patient remains poor. I will discuss the above with the attending physician this morning. I will also discuss the above with the entire ICU team in the next few moments. Prvain Arroyo MD cc: [id number] TT: 07/10/2016 10:14:14 Confirmation # [id number] Dictation # [id number] rn ALICIA
--- NOTE | 2016-07-10 10:31 | PN ---
DATE: 07/10/2016 The patient is seen and examined at bedside. He is in moderate to severe respiratory distress despite BiPAP. He has PVCs and occasional nonsustained V- tach. PHYSICAL EXAMINATION: VITAL SIGNS: His blood pressure is 181/78, and his respiratory rate fluctuated between 30-40. He is on BiPAP 20/8 with FiO2 of 35%. On that setting, his respiratory rate is 30, heart rate 98, blood pressure 181/78. HEAD AND NECK: Atraumatic. LUNGS: Decreased breath sounds bilaterally. No crackles, no wheezes. HEART: Regular rate and rhythm. S1, S2 distant. ABDOMEN: Soft, nontender, nondistended. MUSCULOSKELETAL: Muscle wasting. SKIN: Dry. PSYCH: The patient is in moderate to severe respiratory distress using accessory muscles to breath to breath. LABORATORY DATA: WBC 11.6, hemoglobin 12.9, platelet count 175. Sodium 138, potassium 4.7, chloride 89. BUN 52, creatinine 1.4. Glucose 126. Procalcitonin 0.55. MEDICATIONS: DuoNeb p.r.n. every 4 hours, Lasix 40 mg IV q. 12, levofloxacin, Lovenox, ceftriaxone, Solu-Medrol 60 mg IV q. 12. Chest x-ray showed increased interstitial markings, emphysema, but no distinct infiltrate. ASSESSMENT AND PLAN: This is an 85-year-old gentleman with acute hypercapnic respiratory failure who appears to be failing bilevel positive airway pressure. He is on steroids, bronchodilators, and antibiotics. At present time, the patient will likely need to be intubated. Unfortunately, the patient appears to have end-stage lung disease, and getting him off the ventilator in the case would be more than challenging. We will continue to target euvolemia, euglycemia, normothermia, and oxygen saturation more than 90%. I will touch base with primary medical doctor, and family about impending need for intubation, and if they do not want to proceed with DNR/DNI that will be done. Deep venous thrombosis and gastrointestinal prophylaxis. Addendum: Patient was successfully intubated. Shortly after--HR 170, BP dropped 70-80 systolic. amiodarone and IVF bolus given, but still hypotensive--CXR--no PTX. Will get good IV (CVL), do EKG and if confirm afib--will consider TAC with cardioversion. Bedside Echo showed hyperdynamic LV with thick LV wall, <2 cm IVC and small LV cavity. No intramural LV thrombus observed. Official Echo was ordered and pending. Total of 5 L IVF given Addendum: CVL placed, but right before cardioversion, patient converted to sinus rhythm with anabaptist of stable hemodynamics spontaneously. EKG confirmed sinus rhythm, but shortly afterward, rhythm slipped again to afib with RVR and BP dropped to 70s again-->Will start TAC, amiodarone drip and prepare for emergent cardioversion. Addendum: Emergent cardioversion performed after heprain bolus (followed up by drip) and cont amiodarone infusion. Patient is in NSR now. Family and PMD are aware ccm time 40 min ccm time 40 min Ramesh Joseph MD cc: [id number] TT: 07/10/2016 10:30:43 Confirmation # [id number] Dictation # [id number] jn MTDVincent
[2016-07-10] MEDS ORDERED: Amiodarone 150 mg/D5W 100 ml 100 ML IVPB ONE ×2 (11:05→13:42)
[2016-07-10] MEDS ORDERED: Amiodarone 150mg/3 ml vial ONE (11:07)
--- NOTE | 2016-07-10 11:24 | PN ---
DATE: 07/10/2016 SUBJECTIVE: The patient remains in the intensive care unit. His respiratory status got worse and the patient had to be intubated. He is currently intubated and sedated. Case was discussed with his daughter this morning before intubation. PHYSICAL EXAMINATION: VITAL SIGNS: Temperature 96.7, heart rate 100, blood pressure 141/74, respiratory rate 18, oxygen saturation is 100% on 35% of FIO2. GENERAL: The patient is sedated. HEENT: Head is normocephalic, atraumatic. NECK: Supple, no neck masses, no JVD. LUNGS: With decreased breath sounds. No rales. HEART: With regular rhythm, tachycardic 100 per minute. ABDOMEN: Soft, nontender, nondistended. EXTREMITIES: With multiple diffuse ecchymotic areas on upper extremities. Lower extremities: No edema. DIAGNOSTIC TESTS: This morning, CBC with WBC 11.6, hemoglobin 12.9, hematocrit 42, and platelet count 175,000. His chemistry showed increase of CO2 at 35. His sodium is 138, potassium 4.7. His renal function showed increase of BUN 52 and creatinine 1.4, significantly increased since yesterday. His blood gas before intubation showed pH 7.27, pCO2 of 75, and pO2 94 on 35% FIO2. Blood cultures are negative after 24 hours. His repeat chest x-ray is still pending. ASSESSMENT: 1. Acute respiratory failure. 2. Exacerbation of chronic obstructive pulmonary disease. 3. Right lobe pneumonia. 4. Congestive heart failure. PLAN OF TREATMENT: We will continue respiratory support, sedation. The patient will be maintained on Solu-Medrol and bronchodilators. Follow up blood cultures. We will continue Rocephin. Case was discussed with his daughter this morning and intensive care unit specialist. Vidhi Shea MD cc: [id number] TT: 07/10/2016 11:22:57 Confirmation # [id number] Dictation # [id number] tn MTDD
--- NOTE | 2016-07-10 11:25 | RAD ---
HISTORY: follow up COMPARISON: Comparison is made to the previous study dated 07/09/2016 FINDINGS: LUNGS: Interval mild improvement in the previously seen reticulonodular opacity at the mid and lower right lung compared to the previous exam. Otherwise no significant interval change. Hyperinflation of the lungs is again noted. PLEURA: No significant pleural effusion identified, no pneumothorax apparent. CARDIOVASCULAR: Normal. OSSEOUS STRUCTURES: No significant abnormalities. VISUALIZED UPPER ABDOMEN: Normal. OTHER FINDINGS: None. IMPRESSION: Interval mild improvement in the reticulonodular opacities at the right lung compared to the previous exam. Otherwise no significant interval change.
--- NOTE | 2016-07-10 12:37 | RAD ---
HISTORY: intubated, ett COMPARISON: Comparison is made to the previous same-day exam. FINDINGS: LUNGS: The ET tube is seen at appropriate position. Interval improvement in the right lower lung since the previous exam. PLEURA: No significant pleural effusion identified, no pneumothorax apparent. CARDIOVASCULAR: Normal. OSSEOUS STRUCTURES: No significant abnormalities. VISUALIZED UPPER ABDOMEN: The NG tube seen extending to the abdomen. OTHER FINDINGS: None. IMPRESSION: Appropriate position no of the ETT. Interval mild improvement in the right lower lobe since the previous exam. Otherwise no significant change.
[2016-07-10 16:36] LABS: ADD MANUAL DIFF? NO
--- NOTE | 2016-07-10 16:37 | RAD ---
HISTORY: TLC insertion COMPARISON: Multiple serial examinations preceding the most recent study: July 10, 2016. 09:03. FINDINGS: LUNGS: No significant interval change compared to the prior examination(s). PLEURA: No significant pleural effusion identified, no pneumothorax apparent. CARDIOVASCULAR: No radiographic findings to suggest acute or significant cardiovascular disease. OSSEOUS STRUCTURES: No significant abnormalities. VISUALIZED UPPER ABDOMEN: Normal. OTHER FINDINGS: Satisfactory position of TLC inserted right internal jugular approach. No pneumothorax. Stable position of endotracheal tube and nasogastric tube. IMPRESSION: Satisfactory position of recently introduced venous access catheter. No pneumothorax identified.
[2016-07-10 16:39] LABS: BASO # 0.02 [, K/mm3] (0.0-2.0); BASO % 0.2 % (0.0-3.0); GRAN # 9.12 (1.4-6.5); GRAN % 89.7 % (50.0-68.0); HEMATOCRIT 33.8 % (42.0-52.0); LYMPH # 0.7 (1.2-3.4); LYMPH % 6.5 % (22.0-35.0); MEAN CELL VOLUME 89.2 fL (80.0-105.0); MEAN CORPUSCULAR HGB CONC 31.4 g/dl (31.0-37.0); MEAN PLATELET VOLUME 9.3 fl (7.0-11.0); MONO # 0.4 (0.1-0.6); MONO % 3.6 % (1.0-6.0); PLATELET COUNT 145 [, 10^3/uL] (120.0-450.0); RED CELL DISTRIBUTION WIDTH 15.6 % (11.5-14.5); WHITE BLOOD COUNT 10.2 [, 10^3/ul] (4.5-11.0)
[2016-07-10 16:49] LABS: ALB/GLOB RATIO 1.2 (1.1-1.8); BILIRUBIN,TOTAL 0.5 mg/dL (0.2-1.3); TOTAL PROTEIN 5.2 g/dL (5.8-8.3)
[2016-07-10 16:58] LABS: ABG MECHANICAL RATE 14; ARTERIAL BLOOD GAS HCO3 26.6 mmol/L (21-28); ARTERIAL BLOOD GAS PH 7.36 (7.35-7.45); ATERIAL BLOOD GAS PEEP 5
[2016-07-10 17:00] LABS: TROPONIN I 0.27 ng/mL
[2016-07-10 17:01] LABS: CALCIUM 6.4 mg/dL (8.4-10.5)
[2016-07-10] MEDS ORDERED: Amiodarone 360 mg/D5W 200 ml 200 ML IV SCH (17:15)
--- NOTE | 2016-07-10 17:55 | CARD ---
APPROVED REPORT EKG Measurement Heart [id number] <Conclusion> Atrial fibrillation with rapid ventricular response Abnormal ECG
[2016-07-10] MEDS: Heparin25000 units/250ml 1/2NS 250 ML IV PRN (17:57)
--- NOTE | 2016-07-10 17:58 | CARD ---
APPROVED REPORT EKG Measurement Heart [id number] <Conclusion> Sinus rhythm with premature supraventricular complexes Otherwise normal ECG
--- NOTE | 2016-07-10 20:30 | OP ---
PROCEDURE DATE: 07/10/2016 PROCEDURE: Right internal jugular vein cannulation. DESCRIPTION OF PROCEDURE: After obtaining informed consent, the operational area was sterilized. Maximum barrier precautions were used. The right IJ was cannulated under sterile Seldinger technique. Guidewire removed. Hemostasis was achieved. A sterile dressing was applied. A chest x-ray confirmed CVC position and no PTX. The patient tolerated the procedure well. Ramesh Joseph MD cc: [id number] TT: 07/10/2016 20:29:34 vashti VARGAS
[2016-07-11] MEDS: Albuterol-Ipratrop 3 mg / 0.5 (3 ml) UD IH SCH ×6 (04:13→23:46)
[2016-07-11 05:38] LABS: ARTERIAL BLOOD GAS HCO3 29.1 mmol/L (21-28); ARTERIAL BLOOD GAS O2 CAPACITY 14.5 mL/dl (16-24); ARTERIAL BLOOD GAS O2 CONTENT 14.5 ML/dl (15-23); ARTERIAL BLOOD GAS PH 7.34 (7.35-7.45); CARBOXYHEMOGLOBIN 1.6 % (0.5-1.5); HHB 0.3 % (0-5); METHEMOGLOBIN 1.1 % (0.0-3.0)
[2016-07-11 06:22] LABS: ADD MANUAL DIFF? NO
[2016-07-11 06:32] LABS: BASO # 0.01 [, K/mm3] (0.0-2.0); BASO % 0.1 % (0.0-3.0); GRAN # 8.18 (1.4-6.5); GRAN % 90.7 % (50.0-68.0); HEMATOCRIT 32.4 % (42.0-52.0); LYMPH # 0.4 (1.2-3.4); LYMPH % 4.9 % (22.0-35.0); MEAN CELL VOLUME 87.8 fL (80.0-105.0); MEAN CORPUSCULAR HEMOGLOBIN 27.9 pg (25.0-35.0); MEAN CORPUSCULAR HGB CONC 31.8 g/dl (31.0-37.0); MEAN PLATELET VOLUME 9.4 fl (7.0-11.0); MONO # 0.4 (0.1-0.6); MONO % 4.3 % (1.0-6.0); PLATELET COUNT 170 [, 10^3/uL] (120.0-450.0); RED CELL DISTRIBUTION WIDTH 15.9 % (11.5-14.5)
[2016-07-11 06:43] LABS: ALB/GLOB RATIO 1.2 (1.1-1.8); BILIRUBIN,TOTAL 0.2 mg/dL (0.2-1.3); MAGNESIUM 2.1 mg/dL (1.7-2.2)
[2016-07-11 07:02] LABS: CALCIUM 6.3 mg/dL (8.4-10.5)
--- NOTE | 2016-07-11 07:21 | OP ---
PROCEDURE DATE: 07/10/2016 PROCEDURE: Endotracheal intubation. The patient is in acute respiratory distress, using accessory muscles and gasping for air. BiPAP failed. Decision was made to intubate the patient. The patient was preoxygenated with 100% FiO2 via Ambu bag. Two liters IV fluid started wide open. Vital signs cycled 1 minute. Direct laryngoscopy performed with curved blade Mac3. Vocal cords identified and trachea intubated. ET position confirmed with end-tidal CO2 gauge. Gastric auscultation and bilateral lung auscultation. Chest x-ray confirmed correct position. The patient tolerated the procedure well. Ramesh Joseph MD cc: [id number] TT: 07/10/2016 20:48:05 sadia 07/11/2016 06:20:38 ALICIA
[2016-07-11] MEDS ORDERED: Vancomycin 1gm in NS 250ml 250 ML IVPB STA (08:12)
--- NOTE | 2016-07-11 08:35 | RAD ---
HISTORY: ett, ogt COMPARISON: Comparison chest dated 07/10/2016. Comparison also made with CT scan chest 08/05/2013. FINDINGS: LUNGS: In situ ETT, tip of which lies approximately 5.4 cm above berta NGT is present, the tip of which overlies left upper quadrant of the abdomen. Right IJ central venous line with tip in the SVC. Hyperinflation secondary to significant emphysematous changes less well seen on this exam compared to high-resolution CT chest 08/05/2013. In addition, there are atelectatic and/or infiltrate and scarring changes in the left lung base with left-sided effusion. Mild right basilar atelectasis. Left lung base PLEURA: No pneumothorax apparent. . Small calcified pleural plaque right posteromedial left chest wall also less well seen compared to high-resolution CT chest CARDIOVASCULAR: Normal. OSSEOUS STRUCTURES: No significant abnormalities. VISUALIZED UPPER ABDOMEN: Normal. OTHER FINDINGS: None. IMPRESSION: Support lines and tubes as above. Left lower lobe atelectasis and or infiltrate with scarring and left effusion. Hyperinflation secondary to significant centrilobular emphysema.
--- NOTE | 2016-07-11 08:35 | PN ---
DATE: 07/11/2016(615am--700am) PULMONARY NOTE PHYSICAL EXAMINATION: GENERAL: The patient is currently intubated and sedated. VITAL SIGNS: Temperature is 101.6, pulse 64, respirations 16/14, blood pressure 126/65. HEENT: Normocephalic, atraumatic. No JVD. CARDIOVASCULAR: Systolic ejection murmur at the lower left sternal border. Questionable S3 gallop. LUNGS: Crackles at both bases. Minimal rhonchi. No wheezing this morning. EXTREMITIES: Mild edema. No cyanosis, no clubbing. GASTROINTESTINAL: Abdomen is soft, nontender, nondistended. Bowel sounds are positive. SKIN: No acute rash. NEUROLOGIC: Limited at the present time. PERTINENT LABORATORY DATA: Chest x-ray was done this morning and reviewed. The chest x-ray is overall improved - with decreased pulmonary infiltrates. Arterial blood gas was done on assist control of 14, tidal volume 350, FiO2 of 50%. Results are: pH 7.34, pCO2 of 54, pO2 of 207. IMPRESSION: 1. Respiratory failure. 2. End-stage chronic obstructive pulmonary disease. 3. Congestive heart failure. 4. Rapid atrial fibrillation, status post cardioversion. 5. Severe valvular heart disease. 6. Coronary artery disease. 7. Anemia. PLAN: I did discuss the case with the nurse at length. Apparently, yesterday, the patient experienced respiratory distress. In addition, rapid atrial fibrillation was noted on the monitor. The patient was subsequently intubated for airway protection and ventilation. In addition, the patient had to be cardioverted out of the atrial fibrillation. He is in normal sinus rhythm this morning. I did review the chest x-ray as above. The chest x-ray is overall improved with decreased pulmonary infiltrates. I have also reviewed the arterial blood gas. There is near normalization of the pH with quite adequate oxygenation. We can probably decrease the FiO2 at this point in time. I will discuss that with the ICU team in the next few moments. On physical exam, there is less bronchospasm noted. I will continue with the current nebulizer treatments and try decreasing intravenous steroids this morning. Increased temperatures are also noted over the past 24 hours. Repeat cultures are pending. Cardiology evaluation is also noted. Unfortunately, the overall status/prognosis of this patient remains very poor. I will discuss the above with the entire ICU team in the next few moments. I will also discuss the above with the attending physician later this morning. Pravin Arroyo MD cc: [id number] TT: 07/11/2016 08:35:33 Confirmation # [id number] Dictation # [id number] ALICIA
[2016-07-11] MEDS ORDERED: Digoxin 500 mcg/2ml (0.5 mg/2ml) Inj IVP ONE ×2 (08:43→13:14)
[2016-07-11] MEDS: Meropenem 1g/NS 100mL IVPB 100 ML IVPB SCH ×2 (09:04→22:42)
[2016-07-11] MEDS: cefTRIAXone 1 gm 100 ML IVPB SCH (09:05)
[2016-07-11] MEDS: MethylPREDNISolone 40 mg Vial IVP SCH ×2 (09:06→22:46)
--- NOTE | 2016-07-11 09:59 | PN ---
DATE: 07/11/2016 SUBJECTIVE: The patient seen in ICU and intubated; therefore he is unable to give us a complaint. Saranya kitchen is sedated and moves his hands, but does not open his eyes on command this morning, perhaps the eff ect of the sedation or perhaps his desire. Dr. Craig will reach out a little later to his nehemias nix to bring her up on his progress. The patient known to our office recently the wound signed out [facility] less than 2 weeks ago after a bout of exacerbation of his chronic obstructive pul monary disease, a prolonged emphysematous issue that he often prefers to manage as an outpatient exce pt this time, his hypercarbia just resulted in eventual intubation. Events of last night: He had an additional complication with atrial fibrillation that responded to cardioversion, but this morning h as once again gone into AFib. He is sedated so physical exam will be limited as far as his cooperati on. PHYSICAL EXAMINATION: VITAL SIGNS: This morning, a temperature of 101.6, pulse rate of 64, but apical irregularly irregula r. Blood pressure is listed as 126/65. He is on mechanical ventilation and being overseen with the settings and shovel operator, Dr. Joseph. He has a small amount of secretions reported by the staff. His pO2 was 207, so that was to be recalibrated. The a.m. labs show a glucose of 125. The rest of t he electrolytes are acceptable including magnesium of 2.1. There are multiple ecchymoses all over th e body due to the platelet fragility and his senile skin turgor. HEENT: Head is normocephalic. There are no lesions. NECK: Shows no bruit, no JVD and he had the insertion of the access line yesterday. LUNGS: Very diminished breath sounds. No rhonchi or rales appreciated by us. HEART: Irregularly irregular and remains tachycardic this morning. ABDOMEN: Soft, no masses, not distended. EXTREMITIES: As mentioned before, there are more ecchymosis than clear areas in the arms, the legs a re a little better. There is no peripheral edema appreciated. LABORATORY DATA: Labs this morning are pending with the WBCs. His chemistry, as mentioned before, i s acceptable with the electrolytes. IMPRESSION: Acute respiratory failure on ventilator, exacerbation of chronic obstructive pulmonary d isease, new fever on antibiotics, improving congestive heart failure, new onset recurrent atrial fibr illation. PLAN OF TREATMENT: Respiratory support as discussed with Dr. Arroyo. Prognosis is very poor. Need to consider palliative intervention. We will discuss with daughter as the patient is intubated. At present, he continues with his around the clock bronchodilation and IV Rocephin, and we will conside r ID consult if necessary. Tr Farias MD cc: [id number] TT: 07/11/2016 09:58:21 Confirmation # [id number] Dictation # [id number]
--- NOTE | 2016-07-11 10:03 | PN ---
DATE: 07/11/2016 The patient is seen and examined at bedside. His sedation was just stopped. The patient is off of phenylephrine. Blood pressure off pressors 109/59, heart rate 68, oxygen saturation 99% on 30% FiO2. The patient is on PRVC 350/14/5/ 30. End-tidal CO2 on the monitor 39, respiratory rate 14. The patient was observed. PHYSICAL EXAMINATION: HEAD AND NECK: Atraumatic. LUNGS: Clear to auscultation bilaterally. HEART: Regular rate and rhythm. S1, S2 normal. ABDOMEN: Soft, nontender, nondistended. MUSCULOSKELETAL: No C/C/E. NEUROLOGIC: The patient just started moving all extremities, but prior to that was overbreathing the vent and was not moving. The decision to proceed with CT scan of the head was made. PSYCHIATRIC: The patient is still under residual sedation. LABORATORY DATA: WBC 9, hemoglobin 10.3, platelet count 117. Sodium 141, potassium 4, chloride 102, carbon dioxide 30, BUN 61, creatinine 1.7, up from 1.4, calcium 6.3, albumin 2.7, AST 149, down from 212, and ALT 109, down from 119. Procalcitonin is pending. Blood gas today on 40% FiO2, 7.34/54/207 (FiO2 went down to 30% afterward). MEDICATIONS: Amiodarone drip, DuoNeb every 4 hours, heparin drip, levofloxacin , Protonix 40 mg IV q. 12 (change to daily), ceftriaxone, Solu-Medrol 40 mg IV q. 12, Tylenol p.r.n. ASSESSMENT AND PLAN: This is an 84-year-old gentleman with severe chronic obstructive pulmonary disease who presented with acute hypercapnic respiratory failure requiring intubation, complicated by cardiogenic shock due to atrial fibrillation with rapid ventricular rate, requiring amiodarone drip and subsequent cardioversion. At present time, the patient is off of vasopressor support. He is in sinus rhythm. He is hemodynamically stable. Sedation is stopped and we are waiting for patient to be more awake to proceed with weaning trial. Atrial fibrillation irving we will complete 24 hours of amiodarone drip, provided that LFTs are trending down and there are no signs of clinically significant pulmonary toxicity (amiodarone plus oxygen). Conservative 02 management. Cardiology service is on board and we will request to followup from cardiology service as well. The patient might need official echocardiogram to be repeated. At the present time, the patient is also on heparin drip for therapeutic anticoagulation. The patient will be on protective lung ventilation strategy with tidal volume 6-8 mL per predicted body weight and maintaining plateau pressure less than 30 to avoid ventilator induced lung injury. We will continue with head of bed elevated more than 35 degrees, deep venous thrombosis and gastrointestinal prophylaxis. We will maintain euvolemia to avoid kidney hypoperfusion. The patient does have acute kidney injury. At present time; however, the patient appears to be euvolemic. We will start enteral nutrition and enteral hydration. We will maintain strict glucose control for additional nephro protective effect. We will try to avoid nephrotoxic medication, but not at expense of treatment of underlying disease. The patient had an episode of fever last night. Blood culture, sputum culture, and urine culture were sent. Two days ago procalcitonin was 0.55. We will repeat procalcitonin today as well. Provided that the patient is hemodynamically stable and does not have leukocytosis, I will not empirically escalate antibiotic therapy at present time; however, if procalcitonin comes back incremental I will escalate antibiotics. We will also ask ID service to take a look at the patient as well. We will continue to target euvolemia, euglycemia, normothermia and oxygen saturation more than 90%. We will continue with deep venous thrombosis and gastrointestinal prophylaxis. ccm time 40 min Ramesh Joseph MD cc: [id number] TT: 07/11/2016 09:33:34 Confirmation # [id number] Dictation # [id number] MTDD
[2016-07-11] MEDS ORDERED: Metoprolol 1 mg/ml Inj IVP STA (10:09)
[2016-07-11] MEDS: Amiodarone 360 mg/D5W 200 ml 200 ML IV SCH ×2 (11:26)
--- NOTE | 2016-07-11 12:17 | CP.PCM.CON ---
History of Present Illness - History of Present Illness History of Present Illness: 85 year old [place] male with PMH of severe COPD, oxygen-dependent, severe aortic stenosis and insufficiency, history of postherpetic neuralgia was brought in because of severe shortness of breath with cough. There was no note of fever, vomiting, no diarrhea, no convulsions. The patient was sent to the ICU for closer observation and management. The patient however, deteriorated and the patient needed to be intubated and placed on the ventilator yesterday. He also developed a fever at 4 AM today and Infectious Diseases consult is requested to further evaluate and manage. The patient was placed on antibiotics during admission 2 days ago for possible community-acquired pneumonia. Full review of systems is unobtainable since the patient is currently intubated and sedated. Review of Systems - Review of Systems Systems not reviewed;Unavailable: Intubated Past Patient History - Infectious Disease Hx of Infectious Diseases: None - Tetanus Immunizations Tetanus Immunization: Unknown - Past Medical History & Family History Past Medical History?: Yes Past Family History: Reviewed and not pertinent - Past Social History Smoking Status: Current Some Days Smoker Alcohol: None Drugs: Denies - CARDIAC Hx Cardiac Disorders: Yes Hx Congestive Heart Failure: Yes Hx Hypercholesterolemia: Yes Hx Hypertension: Yes Hx Pacemaker: No Hx Peripheral Edema: Yes Other/Comment: aortic stenosis and regurg - PULMONARY Hx Respiratory Disorders: Yes Hx Asthma: No Hx Bronchitis: No Hx Chronic Obstructive Pulmonary Disease (COPD): Yes Hx Emphysema: Yes Hx Pneumonia: Yes Hx Respiratory Aspiration: No Hx Respiratory Tract Infection: No Hx Sleep Apnea: No Hx Tuberculosis: No - NEUROLOGICAL Other/Comment: herpetic neuralgia - HEENT Hx HEENT Problems: Yes (glassees) Hx Cataracts: Yes (bilat cataract sx) - RENAL Hx Chronic Kidney Disease: No - ENDOCRINE/METABOLIC Hx Endocrine Disorders: No - HEMATOLOGICAL/ONCOLOGICAL Hx Blood Disorders: Yes Hx Shingles: Yes - INTEGUMENTARY Other/Comment: herpes zoster with neuralgia x 3 yrs, 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 Bilateral upper extremities multiple purple and red skin discolorations, right elbow dressing covering red iv attempt site, skin is thin, bilateral lower extremity multiple red and brown skin discolorations - MUSCULOSKELETAL/RHEUMATOLOGICAL Hx Musculoskeletal Disorders: Yes Hx Arthritis: Yes Hx Falls: Yes Hx Unsteady Gait: Yes Other/Comment: uses walker at home - GASTROINTESTINAL Hx Gastrointestinal Disorders: Yes Hx Colostomy: No Hx Crohn's Disease: No Hx Diverticulitis: No Hx Gall Bladder Disease: No Hx Gastroesophageal Reflux: No Hx Ileostomy: No Hx Liver Failure: No Hx Pancreatitis: No HX Swallowing Problems: No - GENITOURINARY/GYNECOLOGICAL Hx Prostate Problems: Yes Other/Comment: hx urinary retention. - PSYCHIATRIC Hx Emotional Abuse: No Hx Physical Abuse: No Hx Substance Use: No - SURGICAL HISTORY Hx Cardiac Catheterization: Yes Other/Comment: gastric polyp - ANESTHESIA Hx Anesthesia Reactions: No Meds Allergies/Adverse Reactions: Allergies Allergy/AdvReac Type Severity Reaction Status Date / Time No Known Allergies Allergy Verified 06/15/16 09:49 - Medications Medications: Current Medications Acetaminophen (Tylenol 650 Mg Supp) 650 mg RC Q6H PRN PRN Reason: Fever >100.4 F Last Admin: 07/11/16 05:15 Dose: 650 mg Albuterol/Ipratropium (Duoneb 3 Mg/0.5 Mg (3 Ml) Ud) 3 ml IH Q2H PRN PRN Reason: Shortness of Breath Albuterol/Ipratropium (Duoneb 3 Mg/0.5 Mg (3 Ml) Ud) 3 ml IH [id number] [facility] Last Admin: 07/11/16 07:45 Dose: 3 ml Enoxaparin Sodium (Lovenox) 30 mg SC DAILY [facility] PRN Reason: Protocol Last Admin: 07/10/16 10:07 Dose: 30 mg Furosemide (Lasix) 40 mg IVP Q12 [facility] Last Admin: 07/10/16 21:34 Dose: 40 mg Ceftriaxone Sodium (Rocephin 1 Gram Ivpb) 100 mls @ 100 mls/hr IVPB DAILY [facility] PRN Reason: Protocol Last Admin: 07/10/16 10:15 Dose: 100 mls/hr Fentanyl Citrate (Fentanyl Citrate/Sodium Chloride 1 Mg/100 Ml) 100 mls @ 2 mls /hr IV .Q24H PRN; Protocol; 20 MCG/HR PRN Reason: TITRATE PER MD ORDER Last Titration: 07/11/16 07:17 Dose: 0 mcg/hr Midazolam 100 mg/100ml in NS (Midazolam 100 Mg/100ml In Ns) 100 mls @ 1 mls/hr IV .Q24H PRN; Protocol; 1 MG/HR PRN Reason: Agitation Last Titration: 07/11/16 07:17 Dose: 0 mg/hr Phenylephrine HCl 40 mg/ (Sodium Chloride) 254 mls @ 38.1 mls/hr IV .Q6H40M PRN ; Protocol; 100 MCG/MIN PRN Reason: TITRATE PER MD ORDER Last Titration: 07/11/16 07:15 Dose: 0 mcg/min Amiodarone HCl/Dextrose (Nexterone 360 Mg In D5w 200 Ml (Premix)) 200 mls @ 16.667 mls/hr IV .Q12H MISSY; 0.5 MG/MIN PRN Reason: Protocol Stop: 07/11/16 15:56 Last Admin: 07/11/16 00:00 Dose: 16.667 mls/hr Heparin Sodium/Sodium Chloride (Heparin 30062 Units/250ml 1/2 Normal Saline) 250 mls @ 9.144 mls/hr IV .Q24H PRN; Protocol; 18 UNITS/KG/HR PRN Reason: ADJUST RATE PER PROTOCOL Last Titration: 07/11/16 00:36 Dose: 16 units/kg/hr Doxycycline Hyclate 100 mg/ (Sodium Chloride) 100 mls @ 100 mls/hr IVPB Q12 MISSY PRN Reason: Protocol MEROPENEM-0.9% SODIUM CHLORIDE (Meropenem 1g/Ns 100ml Ivpb) 100 mls @ 100 mls/ hr IVPB Q12 MISSY PRN Reason: Protocol Stop: 07/16/16 10:01 Vancomycin HCl (Vancomycin 1gm) 250 mls @ 167 mls/hr IVPB STAT STA PRN Reason: Protocol Stop: 07/11/16 09:41 Methylprednisolone (Solu-Medrol) 40 mg IVP Q12 MISSY Pantoprazole Sodium (Protonix Inj) 40 mg IVP DAILY MISSY Physical Exam - Constitutional Appears: Other (Intubated and sedated) - Head Exam Head Exam: NORMAL INSPECTION - ENT Exam Additional comments: ET tube and OG tube in place - Neck Exam Neck exam: Negative for: Meningismus - Respiratory Exam Respiratory Exam: Decreased Breath Sounds, Rales (scattered) - Cardiovascular Exam Cardiovascular Exam: +S1, +S2 - GI/Abdominal Exam GI & Abdominal Exam: Soft. absent: Tenderness Results - Vital Signs Recent Vital Signs: Last Vital Signs Temp 101.6 F H 07/11/16 04:00 Pulse 70 07/11/16 07:35 Resp 20 07/10/16 16:00 BP 126/65 07/11/16 00:00 Pulse Ox 100 07/10/16 16:00 - Labs Result Diagrams: 07/11/16 06:10 07/11/16 06:10 Labs: Laboratory Results - last 24 hr 07/10/16 07/10/16 07/10/16 06:20 16:35 16:55 WBC 10.2 RBC 3.79 Hgb 10.6 L Hct 33.8 L MCV 89.2 MCH 28.0 MCHC 31.4 RDW 15.6 H Plt Count 145 MPV 9.3 Gran % 89.7 H Lymph % (Auto) 6.5 L [place] % (Auto) 3.6 Eos % (Auto) 0.0 L Baso % (Auto) 0.2 Gran # 9.12 H Lymph # 0.7 L [place] # 0.4 Eos # 0.0 Baso # 0.02 Neutrophils % (Manual) 84 H Band Neutrophils % 8 H Lymphocytes % (Manual) 4 L Monocytes % (Manual) 4 Platelet Evaluation Normal Plt Clumps, EDTA Present Large Platelets Present Polychromasia Slight Anisocytosis (manual) 1+ Tear Drop Cells Slight Ovalocytes Slight APTT pCO2 47 H pO2 200.0 H HCO3 26.6 ABG pH 7.36 ABG Total CO2 28.0 ABG O2 Saturation 99.8 H ABG O2 Content ABG Base Excess 0.6 ABG Hemoglobin ABG Carboxyhemoglobin POC ABG HHb (Measured) ABG Methemoglobin ABG O2 Capacity ABG Potassium 3.9 Hgb O2 Saturation Glucose 130 H Lactate 1.1 Mechanical Rate 14 FiO2 50.0 Tidal Volume 350 PEEP 5 Sodium 138 139.0 Potassium 4.0 Chloride 100 105.0 Carbon Dioxide 27 Anion Gap 15 BUN 57 H Creatinine 1.4 Est GFR ( Amer) 59 Est GFR (Non-Af Amer) 48 Random Glucose 123 H Calcium 6.4 L* Phosphorus Magnesium Total Bilirubin 0.5 AST 212 H ALT 119 H Alkaline Phosphatase 91 Troponin I 0.27 H* D Total Protein 5.2 L Albumin 2.8 L Globulin 2.4 Albumin/Globulin Ratio 1.2 Arterial Blood Potassium 3.9 07/10/16 07/11/16 07/11/16 23:50 05:00 06:10 WBC 9.0 RBC 3.69 Hgb 10.3 L Hct 32.4 L MCV 87.8 MCH 27.9 MCHC 31.8 RDW 15.9 H Plt Count 170 MPV 9.4 Gran % 90.7 H Lymph % (Auto) 4.9 L [place] % (Auto) 4.3 Eos % (Auto) 0.0 L Baso % (Auto) 0.1 Gran # 8.18 H Lymph # 0.4 L [place] # 0.4 Eos # 0.0 Baso # 0.01 Neutrophils % (Manual) Band Neutrophils % Lymphocytes % (Manual) Monocytes % (Manual) Platelet Evaluation Plt Clumps, EDTA Large Platelets Polychromasia Anisocytosis (manual) Tear Drop Cells Ovalocytes APTT 86.4 H* 71.0 H* pCO2 54 H pO2 207.0 H HCO3 29.1 H ABG pH 7.34 L ABG Total CO2 30.8 H ABG O2 Saturation 99.7 H ABG O2 Content 14.5 L ABG Base Excess 2.5 ABG Hemoglobin 10.3 L ABG Carboxyhemoglobin 1.6 H POC ABG HHb (Measured) 0.3 ABG Methemoglobin 1.1 ABG O2 Capacity 14.5 L ABG Potassium Hgb O2 Saturation 97.0 Glucose Lactate Mechanical Rate FiO2 50.0 Tidal Volume PEEP Sodium 141 Potassium 4.0 Chloride 102 Carbon Dioxide 30 Anion Gap 13 BUN 61 H Creatinine 1.7 H Est GFR ( Amer) 47 Est GFR (Non-Af Amer) 39 Random Glucose 125 H Calcium 6.3 L* Phosphorus 4.0 Magnesium 2.1 Total Bilirubin 0.2 AST 149 H ALT 109 H Alkaline Phosphatase 83 Troponin I Total Protein 5.0 L Albumin 2.7 L Globulin 2.3 Albumin/Globulin Ratio 1.2 Arterial Blood Potassium Assessment & Plan - Assessment and Plan (Free Text) Plan: Assessment Consider severe sepsis with hypoxic and ventilator-dependent respiratory failure (febrile and tachycardic) and acute renal failure, healthcare- associated (since it's been 2 days since admission), source to be determined but need to rule out healthcare-associated pneumonia with possible gram positive cocci and/or gram negative bacilli Acute renal failure severe COPD, oxygen-dependent severe aortic stenosis and insufficiency history of postherpetic neuralgia Plan continue Doxycycline and change Rocephin to Merrem and give one dose of IV Vancomycin pending blood, sputum cx, repeat urine cx, repeat PCT; check repeat CXR today as well Will discuss with Dr. Arroyo Discussed with Dr. Joseph (ICU physician) Will follow clinically Overall prognosis is poor
--- NOTE | 2016-07-11 12:48 | CP.PCM.CON ---
History of Present Illness - History of Present Illness History of Present Illness: Palliative consult requested by Dr Brendon Farias Reason: Goals of care HPI: Presented to ED with increased shortness of breath which was unrelieved by nebulizer treatments at home. Chest x ray showed new right right lobe opacity, probable pneumonia. Subsequently developed worsening respiratory function requiring intubation. 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 Family History: Non contributory. Social History:Current smoker, long pack year history, no alcohol or drug use. Speaks [place]. Lives with . Advance Care Planning: the patient dies not have an advanced directive. He is a full code. [place] of Systems:The patient is intubated, unable to obtain Past Patient History - Infectious Disease Hx of Infectious Diseases: None - Tetanus Immunizations Tetanus Immunization: Unknown - Past Medical History & Family History Past Medical History?: Yes Past Family History: Reviewed and not pertinent - Past Social History Smoking Status: Current Some Days Smoker Alcohol: None Drugs: Denies - CARDIAC Hx Cardiac Disorders: Yes Hx Congestive Heart Failure: Yes Hx Hypercholesterolemia: Yes Hx Hypertension: Yes Hx Pacemaker: No Hx Peripheral Edema: Yes Other/Comment: aortic stenosis and regurg - PULMONARY Hx Respiratory Disorders: Yes Hx Asthma: No Hx Bronchitis: No Hx Chronic Obstructive Pulmonary Disease (COPD): Yes Hx Emphysema: Yes Hx Pneumonia: Yes Hx Respiratory Aspiration: No Hx Respiratory Tract Infection: No Hx Sleep Apnea: No Hx Tuberculosis: No - NEUROLOGICAL Other/Comment: herpetic neuralgia - HEENT Hx HEENT Problems: Yes (glassees) Hx Cataracts: Yes (bilat cataract sx) - RENAL Hx Chronic Kidney Disease: No - ENDOCRINE/METABOLIC Hx Endocrine Disorders: No - HEMATOLOGICAL/ONCOLOGICAL Hx Blood Disorders: Yes Hx Shingles: Yes - INTEGUMENTARY Other/Comment: herpes zoster with neuralgia x 3 yrs, 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 Bilateral upper extremities multiple purple and red skin discolorations, right elbow dressing covering red iv attempt site, skin is thin, bilateral lower extremity multiple red and brown skin discolorations - MUSCULOSKELETAL/RHEUMATOLOGICAL Hx Musculoskeletal Disorders: Yes Hx Arthritis: Yes Hx Falls: Yes Hx Unsteady Gait: Yes Other/Comment: uses walker at home - GASTROINTESTINAL Hx Gastrointestinal Disorders: Yes Hx Colostomy: No Hx Crohn's Disease: No Hx Diverticulitis: No Hx Gall Bladder Disease: No Hx Gastroesophageal Reflux: No Hx Ileostomy: No Hx Liver Failure: No Hx Pancreatitis: No HX Swallowing Problems: No - GENITOURINARY/GYNECOLOGICAL Hx Prostate Problems: Yes Other/Comment: hx urinary retention. - PSYCHIATRIC Hx Emotional Abuse: No Hx Physical Abuse: No Hx Substance Use: No - SURGICAL HISTORY Hx Cardiac Catheterization: Yes Other/Comment: gastric polyp - ANESTHESIA Hx Anesthesia Reactions: No Meds Allergies/Adverse Reactions: Allergies Allergy/AdvReac Type Severity Reaction Status Date / Time No Known Allergies Allergy Verified 06/15/16 09:49 - Medications Medications: Current Medications Acetaminophen (Tylenol 650 Mg Supp) 650 mg RC Q6H PRN PRN Reason: Fever >100.4 F Last Admin: 07/11/16 11:27 Dose: 650 mg Albuterol/Ipratropium (Duoneb 3 Mg/0.5 Mg (3 Ml) Ud) 3 ml IH Q2H PRN PRN Reason: Shortness of Breath Albuterol/Ipratropium (Duoneb 3 Mg/0.5 Mg (3 Ml) Ud) 3 ml IH [id number] [facility] Last Admin: 07/11/16 11:25 Dose: 3 ml Enoxaparin Sodium (Lovenox) 30 mg SC DAILY [facility] PRN Reason: Protocol Last Admin: 07/10/16 10:07 Dose: 30 mg Furosemide (Lasix) 40 mg IVP Q12 [facility] Last Admin: 07/10/16 21:34 Dose: 40 mg Ceftriaxone Sodium (Rocephin 1 Gram Ivpb) 100 mls @ 100 mls/hr IVPB DAILY [facility] PRN Reason: Protocol Last Admin: 07/11/16 09:05 Dose: 100 mls/hr Fentanyl Citrate (Fentanyl Citrate/Sodium Chloride 1 Mg/100 Ml) 100 mls @ 2 mls /hr IV .Q24H PRN; Protocol; 20 MCG/HR PRN Reason: TITRATE PER MD ORDER Last Titration: 07/11/16 07:17 Dose: 0 mcg/hr Midazolam 100 mg/100ml in NS (Midazolam 100 Mg/100ml In Ns) 100 mls @ 1 mls/hr IV .Q24H PRN; Protocol; 1 MG/HR PRN Reason: Agitation Last Titration: 07/11/16 07:17 Dose: 0 mg/hr Phenylephrine HCl 40 mg/ (Sodium Chloride) 254 mls @ 38.1 mls/hr IV .Q6H40M PRN ; Protocol; 100 MCG/MIN PRN Reason: TITRATE PER MD ORDER Last Titration: 07/11/16 07:15 Dose: 0 mcg/min Amiodarone HCl/Dextrose (Nexterone 360 Mg In D5w 200 Ml (Premix)) 200 mls @ 16.667 mls/hr IV .Q12H [facility]; 0.5 MG/MIN PRN Reason: Protocol Stop: 07/11/16 15:56 Last Admin: 07/11/16 11:26 Dose: 16.667 mls/hr Heparin Sodium/Sodium Chloride (Heparin 04482 Units/250ml 1/2 Normal Saline) 250 mls @ 9.144 mls/hr IV .Q24H PRN; Protocol; 18 UNITS/KG/HR PRN Reason: ADJUST RATE PER PROTOCOL Last Titration: 07/11/16 00:36 Dose: 16 units/kg/hr Doxycycline Hyclate 100 mg/ (Sodium Chloride) 100 mls @ 100 mls/hr IVPB Q12 [facility] PRN Reason: Protocol Last Admin: 07/11/16 10:14 Dose: 100 mls/hr MEROPENEM-0.9% SODIUM CHLORIDE (Meropenem 1g/Ns 100ml Ivpb) 100 mls @ 100 mls/ hr IVPB Q12 [facility] PRN Reason: Protocol Stop: 07/16/16 10:01 Last Admin: 07/11/16 09:04 Dose: 100 mls/hr Methylprednisolone (Solu-Medrol) 40 mg IVP Q12 [facility] Last Admin: 07/11/16 09:06 Dose: 40 mg Pantoprazole Sodium (Protonix Inj) 40 mg IVP DAILY [facility] Last Admin: 07/11/16 09:05 Dose: 40 mg Physical Exam - Constitutional Appears: Chronically Ill - Head Exam Head Exam: NORMAL INSPECTION - Eye Exam Eye Exam: Normal appearance, PERRL - ENT Exam ENT Exam: Mucous Membranes Moist - Neck Exam Neck exam: Positive for: Normal Inspection - Respiratory Exam Respiratory Exam: Decreased Breath Sounds, NORMAL BREATHING PATTERN - Cardiovascular Exam Cardiovascular Exam: REGULAR RHYTHM, +S1, +S2 - GI/Abdominal Exam GI & Abdominal Exam: Normal Bowel Sounds, Soft - Extremities Exam Extremities exam: Positive for: full ROM, normal inspection - Neurological Exam Neurological exam: Altered - Skin Skin Exam: Dry, Pallor, Warm - Additional Findings Additional findings: Palliative performance scale rating 20 % Results - Vital Signs Recent Vital Signs: Last Vital Signs Temp 101.8 F H 07/11/16 11:24 Pulse 136 H 07/11/16 12:00 Resp 16 07/11/16 11:24 BP 120/84 07/11/16 11:26 Pulse Ox 96 07/11/16 11:24 - Labs Result Diagrams: 07/11/16 06:10 07/11/16 06:10 Labs: Laboratory Results - last 24 hr 07/10/16 07/10/16 07/10/16 16:35 16:55 23:50 WBC 10.2 RBC 3.79 Hgb 10.6 L Hct 33.8 L MCV 89.2 MCH 28.0 MCHC 31.4 RDW 15.6 H Plt Count 145 MPV 9.3 Gran % 89.7 H Lymph % (Auto) 6.5 L Leslie % (Auto) 3.6 Eos % (Auto) 0.0 L Baso % (Auto) 0.2 Gran # 9.12 H Lymph # 0.7 L Leslie # 0.4 Eos # 0.0 Baso # 0.02 APTT 86.4 H* pCO2 47 H pO2 200.0 H HCO3 26.6 ABG pH 7.36 ABG Total CO2 28.0 ABG O2 Saturation 99.8 H ABG O2 Content ABG Base Excess 0.6 ABG Hemoglobin ABG Carboxyhemoglobin POC ABG HHb (Measured) ABG Methemoglobin ABG O2 Capacity ABG Potassium 3.9 Hgb O2 Saturation Glucose 130 H Lactate 1.1 Mechanical Rate 14 FiO2 50.0 Tidal Volume 350 PEEP 5 Sodium 138 139.0 Potassium 4.0 Chloride 100 105.0 Carbon Dioxide 27 Anion Gap 15 BUN 57 H Creatinine 1.4 Est GFR ( Amer) 59 Est GFR (Non-Af Amer) 48 Random Glucose 123 H Calcium 6.4 L* Phosphorus Magnesium Total Bilirubin 0.5 AST 212 H ALT 119 H Alkaline Phosphatase 91 Troponin I 0.27 H* D Total Protein 5.2 L Albumin 2.8 L Globulin 2.4 Albumin/Globulin Ratio 1.2 Procalcitonin Arterial Blood Potassium 3.9 07/11/16 07/11/16 07/11/16 05:00 06:10 08:28 WBC 9.0 RBC 3.69 Hgb 10.3 L Hct 32.4 L MCV 87.8 MCH 27.9 MCHC 31.8 RDW 15.9 H Plt Count 170 MPV 9.4 Gran % 90.7 H Lymph % (Auto) 4.9 L Leslie % (Auto) 4.3 Eos % (Auto) 0.0 L Baso % (Auto) 0.1 Gran # 8.18 H Lymph # 0.4 L Leslie # 0.4 Eos # 0.0 Baso # 0.01 APTT 71.0 H* pCO2 54 H pO2 207.0 H HCO3 29.1 H ABG pH 7.34 L ABG Total CO2 30.8 H ABG O2 Saturation 99.7 H ABG O2 Content 14.5 L ABG Base Excess 2.5 ABG Hemoglobin 10.3 L ABG Carboxyhemoglobin 1.6 H POC ABG HHb (Measured) 0.3 ABG Methemoglobin 1.1 ABG O2 Capacity 14.5 L ABG Potassium Hgb O2 Saturation 97.0 Glucose Lactate Mechanical Rate FiO2 50.0 Tidal Volume PEEP Sodium 141 Potassium 4.0 Chloride 102 Carbon Dioxide 30 Anion Gap 13 BUN 61 H Creatinine 1.7 H Est GFR ( Amer) 47 Est GFR (Non-Af Amer) 39 Random Glucose 125 H Calcium 6.3 L* Phosphorus 4.0 Magnesium 2.1 Total Bilirubin 0.2 AST 149 H ALT 109 H Alkaline Phosphatase 83 Troponin I Total Protein 5.0 L Albumin 2.7 L Globulin 2.3 Albumin/Globulin Ratio 1.2 Procalcitonin 0.73 H Arterial Blood Potassium Assessment & Plan - Assessment and Plan (Free Text) Assessment: 85 year old [place] male admitted with respiratory failure, cardiac arrhythmia. Multiple comorbidites, end stage COPD, pulmonary hypertension, Patient intubated,off sedation, minimally arousable. CT of head pending. Family at bedside, patient's and daughter do not speak [place]. Adult grandchildren also present and communicating in [place]. They are waiting to speak with manager oracle database regarding patient's status. I introduced myself to family and explained the role of palliative services. Family appreciative of my support. Goals of care not discussed at this time as family awaiting physicians input. Plan: Continue current medical management. Will provide psychosocial support and assist family in establishing future goals of care - Date & Time Date: 07/11/16 Time: 03:00
[2016-07-11] MEDS ORDERED: Midazolam 5 MG/5 ML VIAL IVP STA (13:00)
--- NOTE | 2016-07-11 13:34 | CP.CCUPN ---
<Ru Aguirre - Last Filed: 07/11/16 13:46> CCU Subjective - Physician Review Subjective (Free Text): Pt s&e w ICU attending. Pt is intubated and off sedation . Pt is unarousable, doen't response to stimuli. Pt was intubated yesterday, developed new onset Afib RVR, tachycardic and hypotensive. Cardioverted yesterday. Pt is on heparin drip and amiodarone. Vent setting is lowered to 30% FiO2. Pt had fever of 101.6 overnight. 07/11/16 13:50 CCU Objective - Vital Signs / Intake & Output Vital Signs (Last 4 hours): Vital Signs Temp Pulse Resp BP Pulse Ox 07/11/16 13:00 72 07/11/16 12:00 136 H 07/11/16 11:26 131 H 120/84 07/11/16 11:24 101.8 F H 131 H 16 120/84 96 07/11/16 10:14 153 H 144/82 07/11/16 10:09 145 H 07/11/16 10:00 80 Intake and Output (Last 8hrs): Intake & Output 07/10/16 07/11/16 07/11/16 22:59 06:59 14:59 Intake Total 5472 1614 Output Total 300 950 Balance 5172 664 Weight 112 lb Intake: IV 5472 1614 .9 NS Bolus 5000 1000 Phenlephrine 91 250 Amiodarone 333 200 Fentanyl drip\ 18 24 Versed drip 21 44 Heparin drip 9 92 Oral 0 Output: Urine 300 950 Urine, Voided 300 950 Other 0 Other: Voiding Method Indwelling Catheter Indwelling Catheter - Physical Exam Head: Positive for: Atraumatic, Normocephalic Conjunctiva: Positive for: Normal Mouth: Positive for: Moist Mucous Membranes Respiratory/Chest: Positive for: Rales, Other (Intubated at 30% 5 14 350 ). Negative for: Accessory Muscle Use Cardiovascular: Positive for: Tachycardic. Negative for: Murmurs Abdomen: Negative for: Tenderness, Distention, Peritoneal Signs Back: Positive for: Normal Inspection Upper Extremity: Positive for: Normal Inspection. Negative for: Cyanosis, Edema Lower Extremity: Positive for: Normal Inspection. Negative for: Edema Skin: Positive for: Warm, Dry, Other (ecchymosis ). Negative for: Rashes, Normal Color Psychiatric: Negative for: Alert, Oriented x 3 - Medications Active Medications: Active Medications Generic Name Dose Route Start Last Admin Trade Name Freq PRN Reason Stop Dose Admin Acetaminophen 650 mg 07/11/16 05:02 07/11/16 11:27 Tylenol 650 Mg Supp RC 650 mg Q6H PRN Administration Fever >100.4 F Albuterol/Ipratropium 3 ml 07/09/16 04:45 Duoneb 3 Mg/0.5 Mg (3 Ml) Ud IH Q2H PRN Shortness of Breath Albuterol/Ipratropium 3 ml 07/09/16 07:30 07/11/16 11:25 Duoneb 3 Mg/0.5 Mg (3 Ml) Ud IH 3 ml [id number] LUCIO Administration Enoxaparin Sodium 30 mg 07/09/16 12:15 07/10/16 10:07 Lovenox SC 30 mg DAILY LUCIO Administration Protocol Furosemide 40 mg 07/09/16 10:00 07/10/16 21:34 Lasix IVP 40 mg Q12 LUCIO Administration Ceftriaxone Sodium 100 mls @ 100 mls/hr 07/09/16 10:00 07/11/16 09:05 Rocephin 1 Gram Ivpb IVPB 100 mls/hr DAILY LUCIO Administration Protocol Fentanyl Citrate 100 mls @ 2 mls/hr 07/10/16 08:51 07/11/16 07:17 Fentanyl Citrate/Sodium Chloride 1 Mg/100 Ml IV 0 mcg/hr .Q24H PRN Titration TITRATE PER MD ORDER Protocol 20 MCG/HR Midazolam 100 mg/100ml in NS 100 mls @ 1 mls/hr 07/10/16 08:50 07/11/16 07:17 Midazolam 100 Mg/100ml In Ns IV 0 mg/hr .Q24H PRN Titration Agitation Protocol 1 MG/HR Phenylephrine HCl 40 mg/ 254 mls @ 38.1 mls/hr 07/10/16 15:11 07/11/16 07:15 Sodium Chloride IV 0 mcg/min .Q6H40M PRN Titration TITRATE PER MD ORDER Protocol 100 MCG/MIN Amiodarone HCl/Dextrose 200 mls @ 16.667 mls/hr 07/10/16 23:55 07/11/16 11:26 Nexterone 360 Mg In D5w 200 Ml (Premix) IV 07/11/16 15:56 16.667 mls/hr .Q12H LUCIO Administration Protocol 0.5 MG/MIN Heparin Sodium/Sodium Chloride 250 mls @ 9.144 mls/hr 07/10/16 17:21 07/11/16 00:36 Heparin 79912 Units/250ml 1/2 Normal Saline IV 16 units/kg/hr .Q24H PRN Titration ADJUST RATE PER PROTOCOL Protocol 18 UNITS/KG/HR Doxycycline Hyclate 100 mg/ 100 mls @ 100 mls/hr 07/11/16 10:00 07/11/16 10:14 Sodium Chloride IVPB 100 mls/hr Q12 LUCIO Administration Protocol MEROPENEM-0.9% SODIUM CHLORIDE 100 mls @ 100 mls/hr 07/11/16 10:00 07/11/16 09: 04 Meropenem 1g/Ns 100ml Ivpb IVPB 07/16/16 10:01 100 mls/hr Q12 LUCIO Administration Protocol Methylprednisolone 40 mg 07/11/16 10:00 07/11/16 09:06 Solu-Medrol IVP 40 mg Q12 LUCIO Administration Pantoprazole Sodium 40 mg 07/11/16 10:00 07/11/16 09:05 Protonix Inj IVP 40 mg DAILY LUCIO Administration - Patient Studies Lab Studies: Microbiology Studies 07/09/16 06:20 MRSA Culture (Admit) - Final Nose MRSA NOT DETECTED 07/09/16 20:01 Gram Stain - Final Sputum Lab Studies 07/11/16 07/11/16 07/11/16 Range/Units 08:28 06:10 05:00 WBC 9.0 (4.5-11.0) 10^3/ul RBC 3.69 (3.5-6.1) 10^6/uL Hgb 10.3 L (14.0-18.0) gm/dL Hct 32.4 L (42.0-52.0) % MCV 87.8 (80.0-105.0) fL MCH 27.9 (25.0-35.0) pg MCHC 31.8 (31.0-37.0) g/dl RDW 15.9 H (11.5-14.5) % Plt Count 170 (120.0-450.0) 10^3/uL MPV 9.4 (7.0-11.0) fl Gran % 90.7 H (50.0-68.0) % Lymph % (Auto) 4.9 L (22.0-35.0) % Ashley % (Auto) 4.3 (1.0-6.0) % Eos % (Auto) 0.0 L (1.5-5.0) % Baso % (Auto) 0.1 (0.0-3.0) % Gran # 8.18 H (1.4-6.5) Lymph # 0.4 L (1.2-3.4) Ashley # 0.4 (0.1-0.6) Eos # 0.0 (0.0-0.7) Baso # 0.01 (0.0-2.0) K/mm3 APTT 71.0 H* (23.7-30.8) Seconds pCO2 54 H (35-45) mm/Hg pO2 207.0 H (80-100) mm/Hg HCO3 29.1 H (21-28) mmol/L ABG pH 7.34 L (7.35-7.45) ABG Total CO2 30.8 H (22-28) mmol.L ABG O2 Saturation 99.7 H (95-98) % ABG O2 Content 14.5 L (15-23) ML/dl ABG Base Excess 2.5 (-2.0-3.0) mmol/L ABG Hemoglobin 10.3 L (11.7-17.4) g/dL ABG Carboxyhemoglobin 1.6 H (0.5-1.5) % POC ABG HHb (Measured) 0.3 (0-5) % ABG Methemoglobin 1.1 (0.0-3.0) % ABG O2 Capacity 14.5 L (16-24) mL/dl ABG Potassium (3.6-5.2) mmol/L Hgb O2 Saturation 97.0 (95.0-98.0) % Glucose (75-110) mg/dl Lactate (0.7-2.1) mmol/L Mechanical Rate FiO2 50.0 % Tidal Volume PEEP Sodium 141 (132-148) mmol/L Potassium 4.0 (3.6-5.0) mmol/L Chloride 102 (95-110) mmol/L Carbon Dioxide 30 (21-33) mmol/L Anion Gap 13 (10-20) BUN 61 H (7-21) mg/dL Creatinine 1.7 H (0.5-1.4) mg/dL Est GFR ( Amer) 47 Est GFR (Non-Af Amer) 39 Random Glucose 125 H (70-110) mg/dL Calcium 6.3 L* (8.4-10.5) mg/dL Phosphorus 4.0 (2.5-4.5) mg/dL Magnesium 2.1 (1.7-2.2) mg/dL Total Bilirubin 0.2 (0.2-1.3) mg/dL AST 149 H (15-59) U/L ALT 109 H (7-56) U/L Alkaline Phosphatase 83 (38-133) U/L Troponin I ng/mL Total Protein 5.0 L (5.8-8.3) g/dL Albumin 2.7 L (3.0-4.8) g/dL Globulin 2.3 gm/dL Albumin/Globulin Ratio 1.2 (1.1-1.8) Procalcitonin 0.73 H (0.19-0.49) NG/ML Arterial Blood Potassium (3.6-5.2) mmol/L 07/10/16 07/10/16 07/10/16 Range/Units 23:50 16:55 16:35 WBC 10.2 (4.5-11.0) 10^3/ul RBC 3.79 (3.5-6.1) 10^6/uL Hgb 10.6 L (14.0-18.0) gm/dL Hct 33.8 L (42.0-52.0) % MCV 89.2 (80.0-105.0) fL MCH 28.0 (25.0-35.0) pg MCHC 31.4 (31.0-37.0) g/dl RDW 15.6 H (11.5-14.5) % Plt Count 145 (120.0-450.0) 10^3/uL MPV 9.3 (7.0-11.0) fl Gran % 89.7 H (50.0-68.0) % Lymph % (Auto) 6.5 L (22.0-35.0) % Ashley % (Auto) 3.6 (1.0-6.0) % Eos % (Auto) 0.0 L (1.5-5.0) % Baso % (Auto) 0.2 (0.0-3.0) % Gran # 9.12 H (1.4-6.5) Lymph # 0.7 L (1.2-3.4) Ashley # 0.4 (0.1-0.6) Eos # 0.0 (0.0-0.7) Baso # 0.02 (0.0-2.0) K/mm3 APTT 86.4 H* (23.7-30.8) Seconds pCO2 47 H (35-45) mm/Hg pO2 200.0 H (80-100) mm/Hg HCO3 26.6 (21-28) mmol/L ABG pH 7.36 (7.35-7.45) ABG Total CO2 28.0 (22-28) mmol.L ABG O2 Saturation 99.8 H (95-98) % ABG O2 Content (15-23) ML/dl ABG Base Excess 0.6 (-2.0-3.0) mmol/L ABG Hemoglobin (11.7-17.4) g/dL ABG Carboxyhemoglobin (0.5-1.5) % POC ABG HHb (Measured) (0-5) % ABG Methemoglobin (0.0-3.0) % ABG O2 Capacity (16-24) mL/dl ABG Potassium 3.9 (3.6-5.2) mmol/L Hgb O2 Saturation (95.0-98.0) % Glucose 130 H (75-110) mg/dl Lactate 1.1 (0.7-2.1) mmol/L Mechanical Rate 14 FiO2 50.0 % Tidal Volume 350 PEEP 5 Sodium 139.0 138 (132-148) mmol/L Potassium 4.0 (3.6-5.0) mmol/L Chloride 105.0 100 (95-110) mmol/L Carbon Dioxide 27 (21-33) mmol/L Anion Gap 15 (10-20) BUN 57 H (7-21) mg/dL Creatinine 1.4 (0.5-1.4) mg/dL Est GFR ( Amer) 59 Est GFR (Non-Af Amer) 48 Random Glucose 123 H (70-110) mg/dL Calcium 6.4 L* (8.4-10.5) mg/dL Phosphorus (2.5-4.5) mg/dL Magnesium (1.7-2.2) mg/dL Total Bilirubin 0.5 (0.2-1.3) mg/dL AST 212 H (15-59) U/L ALT 119 H (7-56) U/L Alkaline Phosphatase 91 (38-133) U/L Troponin I 0.27 H* D ng/mL Total Protein 5.2 L (5.8-8.3) g/dL Albumin 2.8 L (3.0-4.8) g/dL Globulin 2.4 gm/dL Albumin/Globulin Ratio 1.2 (1.1-1.8) Procalcitonin (0.19-0.49) NG/ML Arterial Blood Potassium 3.9 (3.6-5.2) mmol/L Laboratory Results - last 24 hr 07/10/16 07/10/16 07/10/16 16:35 16:55 23:50 WBC 10.2 RBC 3.79 Hgb 10.6 L Hct 33.8 L MCV 89.2 MCH 28.0 MCHC 31.4 RDW 15.6 H Plt Count 145 MPV 9.3 Gran % 89.7 H Lymph % (Auto) 6.5 L Ashley % (Auto) 3.6 Eos % (Auto) 0.0 L Baso % (Auto) 0.2 Gran # 9.12 H Lymph # 0.7 L Ashley # 0.4 Eos # 0.0 Baso # 0.02 APTT 86.4 H* pCO2 47 H pO2 200.0 H HCO3 26.6 ABG pH 7.36 ABG Total CO2 28.0 ABG O2 Saturation 99.8 H ABG O2 Content ABG Base Excess 0.6 ABG Hemoglobin ABG Carboxyhemoglobin POC ABG HHb (Measured) ABG Methemoglobin ABG O2 Capacity ABG Potassium 3.9 Hgb O2 Saturation Glucose 130 H Lactate 1.1 Mechanical Rate 14 FiO2 50.0 Tidal Volume 350 PEEP 5 Sodium 138 139.0 Potassium 4.0 Chloride 100 105.0 Carbon Dioxide 27 Anion Gap 15 BUN 57 H Creatinine 1.4 Est GFR ( Amer) 59 Est GFR (Non-Af Amer) 48 Random Glucose 123 H Calcium 6.4 L* Phosphorus Magnesium Total Bilirubin 0.5 AST 212 H ALT 119 H Alkaline Phosphatase 91 Troponin I 0.27 H* D Total Protein 5.2 L Albumin 2.8 L Globulin 2.4 Albumin/Globulin Ratio 1.2 Procalcitonin Arterial Blood Potassium 3.9 07/11/16 07/11/16 07/11/16 05:00 06:10 08:28 WBC 9.0 RBC 3.69 Hgb 10.3 L Hct 32.4 L MCV 87.8 MCH 27.9 MCHC 31.8 RDW 15.9 H Plt Count 170 MPV 9.4 Gran % 90.7 H Lymph % (Auto) 4.9 L Ashley % (Auto) 4.3 Eos % (Auto) 0.0 L Baso % (Auto) 0.1 Gran # 8.18 H Lymph # 0.4 L Ashley # 0.4 Eos # 0.0 Baso # 0.01 APTT 71.0 H* pCO2 54 H pO2 207.0 H HCO3 29.1 H ABG pH 7.34 L ABG Total CO2 30.8 H ABG O2 Saturation 99.7 H ABG O2 Content 14.5 L ABG Base Excess 2.5 ABG Hemoglobin 10.3 L ABG Carboxyhemoglobin 1.6 H POC ABG HHb (Measured) 0.3 ABG Methemoglobin 1.1 ABG O2 Capacity 14.5 L ABG Potassium Hgb O2 Saturation 97.0 Glucose Lactate Mechanical Rate FiO2 50.0 Tidal Volume PEEP Sodium 141 Potassium 4.0 Chloride 102 Carbon Dioxide 30 Anion Gap 13 BUN 61 H Creatinine 1.7 H Est GFR ( Amer) 47 Est GFR (Non-Af Amer) 39 Random Glucose 125 H Calcium 6.3 L* Phosphorus 4.0 Magnesium 2.1 Total Bilirubin 0.2 AST 149 H ALT 109 H Alkaline Phosphatase 83 Troponin I Total Protein 5.0 L Albumin 2.7 L Globulin 2.3 Albumin/Globulin Ratio 1.2 Procalcitonin 0.73 H Arterial Blood Potassium EKG/Cardiology Studies: Cardiology / EKG Studies 07/10/16 15:57 EKG [ELECTROCARDIOGRAM] Stat Comment: Reason For Exam: placement tlc 07/10/16 17:21 EKG [ELECTROCARDIOGRAM] Stat Comment: Reason For Exam: HR 07/10/16 18:53 EKG [ELECTROCARDIOGRAM] Stat Comment: Reason For Exam: s/p cardioversion 07/10/16 21:01 EKG [ELECTROCARDIOGRAM] Stat Comment: Reason For Exam: s/p cardioversion Review of Systems - Review of Systems Systems not reviewed;Unavailable: Intubated Critical Care Progress Note - Ventilator Checklist Head of Bed 30 Degrees: Yes Daily Sedation Vacation: No Daily Assessment of Readiness to Wean: Yes PUD Prophalyxis: Yes DVT Prophylaxis: Yes Assessment/Plan - Assessment and Plan (Free Text) Assessment: This is an 85 yo [place] M with PMH severe COPD (oxygen/steroid dependent), abdominal mass identified on CT, progressive weight loss, severe aortic stenosis , severe aortic regurgitation, urinary retention, and postherpetic neuralgia, who presents to the ED for acute onset shortness of breath. Hypercapnic respiratory failure Cardiogenic shock 2/2 new onset A-fib RVR Plan: Neuro: AAOx0 Off sedation f/u Head CT today CV: Cardiogenic shock 2/2 Afib RVR Keep MAP 65+ -Cardio following: digoxin given, -CXR: LLL atelectasis/infltrate, central emphysema. Suspicious for CHF/fluid overload, but no cardiomegaly -Amiodarone drip -Echo: sever aortic stenosi,s 50+% EF -f/u repeat Echo -Strict I's and O's, daily weights -Heparin drip Pulm: Hypercapnic respiratory failure vent dependent : 30% fio2 5 14 350 -Maintain SaO2 > 90% and paO2 > 60 -ABG : 7.34/54/207/29 -As per Primary, Pulm consulted: FiO2 to 30% rocephin -Duonebs q4 lucio and q2 prn -Solumedrol -Head of bed to 30 degrees -Aspiration precaution GI: -NPO /Enteral diet -Protonix for Ppx Renal: - Urine output: 1.3 L /24hrs -Cr 1.7<-1.4<-0.8 (baseline is 0.7-1.0 per charting), continue to monitor -monitor and replete electrolytes as needed -avoid nephrotoxic drugs where feasible -maintain euglycemia (140-180), euvolemia Heme: -Hgb 12.5->10, baseline per charting is 13-14 -PTT 71 -continue to monitor -DVT ppx with SCDs, heparin drip ID: -Febrile -Procalcitonin: 0.55->0.73 -F/U shah cx -Tylenol PRN -Rocephin per pulm -ID following Isabelle altamirano Vanco Dispo: ICU for vent dependent respiratory failure Access: Peripheral IV, RIJ CVC Consults: Pulm, Cardio, ID Ppx: SCDs for DVT, Protonix for GI Patient seen, reviewed, and discussed with attending <Ramesh Joseph - Last Filed: 07/11/16 16:44> CCU Objective - Vital Signs / Intake & Output Vital Signs (Last 4 hours): Vital Signs Pulse Resp Pulse Ox 07/11/16 16:00 64 15 99 07/11/16 14:00 65 07/11/16 13:00 72 Intake and Output (Last 8hrs): Intake & Output 07/11/16 07/11/16 07/11/16 06:59 14:59 22:59 Intake Total 1614 Output Total 950 Balance 664 Weight 112 lb Intake: IV 1614 .9 NS Bolus 1000 Phenlephrine 250 Amiodarone 200 Fentanyl drip\ 24 Versed drip 44 Heparin drip 92 Oral 0 Output: Urine 950 Urine, Voided 950 Other 0 Other: Voiding Method Indwelling Catheter - Medications Active Medications: Active Medications Generic Name Dose Route Start Last Admin Trade Name Freq PRN Reason Stop Dose Admin Acetaminophen 650 mg 07/11/16 05:02 07/11/16 11:27 Tylenol 650 Mg Supp RC 650 mg Q6H PRN Administration Fever >100.4 F Albuterol/Ipratropium 3 ml 07/09/16 04:45 Duoneb 3 Mg/0.5 Mg (3 Ml) Ud IH Q2H PRN Shortness of Breath Albuterol/Ipratropium 3 ml 07/09/16 07:30 07/11/16 15:35 Duoneb 3 Mg/0.5 Mg (3 Ml) Ud IH 3 ml [id number] LUCIO Administration Enoxaparin Sodium 30 mg 07/09/16 12:15 07/10/16 10:07 Lovenox SC 30 mg DAILY LUCIO Administration Protocol Furosemide 40 mg 07/09/16 10:00 07/10/16 21:34 Lasix IVP 40 mg Q12 LUCIO Administration Ceftriaxone Sodium 100 mls @ 100 mls/hr 07/09/16 10:00 07/11/16 09:05 Rocephin 1 Gram Ivpb IVPB 100 mls/hr DAILY LUCIO Administration Protocol Fentanyl Citrate 100 mls @ 2 mls/hr 07/10/16 08:51 07/11/16 07:17 Fentanyl Citrate/Sodium Chloride 1 Mg/100 Ml IV 0 mcg/hr .Q24H PRN Titration TITRATE PER MD ORDER Protocol 20 MCG/HR Midazolam 100 mg/100ml in NS 100 mls @ 1 mls/hr 07/10/16 08:50 07/11/16 07:17 Midazolam 100 Mg/100ml In Ns IV 0 mg/hr .Q24H PRN Titration Agitation Protocol 1 MG/HR Phenylephrine HCl 40 mg/ 254 mls @ 38.1 mls/hr 07/10/16 15:11 07/11/16 07:15 Sodium Chloride IV 0 mcg/min .Q6H40M PRN Titration TITRATE PER MD ORDER Protocol 100 MCG/MIN Heparin Sodium/Sodium Chloride 250 mls @ 9.144 mls/hr 07/10/16 17:21 07/11/16 00:36 Heparin 90192 Units/250ml 1/2 Normal Saline IV 16 units/kg/hr .Q24H PRN Titration ADJUST RATE PER PROTOCOL Protocol 18 UNITS/KG/HR Doxycycline Hyclate 100 mg/ 100 mls @ 100 mls/hr 07/11/16 10:00 07/11/16 10:14 Sodium Chloride IVPB 100 mls/hr Q12 LUCIO Administration Protocol MEROPENEM-0.9% SODIUM CHLORIDE 100 mls @ 100 mls/hr 07/11/16 10:00 07/11/16 09: 04 Meropenem 1g/Ns 100ml Ivpb IVPB 07/16/16 10:01 100 mls/hr Q12 LUCIO Administration Protocol Methylprednisolone 40 mg 07/11/16 10:00 07/11/16 09:06 Solu-Medrol IVP 40 mg Q12 LUCIO Administration Pantoprazole Sodium 40 mg 07/11/16 10:00 07/11/16 09:05 Protonix Inj IVP 40 mg DAILY LUCIO Administration - Patient Studies Lab Studies: Microbiology Studies 07/09/16 06:20 MRSA Culture (Admit) - Final Nose MRSA NOT DETECTED 07/09/16 20:01 Gram Stain - Final Sputum Lab Studies 07/11/16 07/11/16 07/11/16 Range/Units 13:20 08:28 06:10 WBC 9.0 (4.5-11.0) 10^3/ul RBC 3.69 (3.5-6.1) 10^6/uL Hgb 10.3 L (14.0-18.0) gm/dL Hct 32.4 L (42.0-52.0) % MCV 87.8 (80.0-105.0) fL MCH 27.9 (25.0-35.0) pg MCHC 31.8 (31.0-37.0) g/dl RDW 15.9 H (11.5-14.5) % Plt Count 170 (120.0-450.0) 10^3/uL MPV 9.4 (7.0-11.0) fl Gran % 90.7 H (50.0-68.0) % Lymph % (Auto) 4.9 L (22.0-35.0) % Ashley % (Auto) 4.3 (1.0-6.0) % Eos % (Auto) 0.0 L (1.5-5.0) % Baso % (Auto) 0.1 (0.0-3.0) % Gran # 8.18 H (1.4-6.5) Lymph # 0.4 L (1.2-3.4) Ashley # 0.4 (0.1-0.6) Eos # 0.0 (0.0-0.7) Baso # 0.01 (0.0-2.0) K/mm3 APTT 76.6 H* 71.0 H* (23.7-30.8) Seconds pCO2 (35-45) mm/Hg pO2 (80-100) mm/Hg HCO3 (21-28) mmol/L ABG pH (7.35-7.45) ABG Total CO2 (22-28) mmol.L ABG O2 Saturation (95-98) % ABG O2 Content (15-23) ML/dl ABG Base Excess (-2.0-3.0) mmol/L ABG Hemoglobin (11.7-17.4) g/dL ABG Carboxyhemoglobin (0.5-1.5) % POC ABG HHb (Measured) (0-5) % ABG Methemoglobin (0.0-3.0) % ABG O2 Capacity (16-24) mL/dl ABG Potassium (3.6-5.2) mmol/L Hgb O2 Saturation (95.0-98.0) % Glucose (75-110) mg/dl Lactate (0.7-2.1) mmol/L Mechanical Rate FiO2 % Tidal Volume PEEP Sodium 141 (132-148) mmol/L Potassium 4.0 (3.6-5.0) mmol/L Chloride 102 (95-110) mmol/L Carbon Dioxide 30 (21-33) mmol/L Anion Gap 13 (10-20) BUN 61 H (7-21) mg/dL Creatinine 1.7 H (0.5-1.4) mg/dL Est GFR ( Amer) 47 Est GFR (Non-Af Amer) 39 Random Glucose 125 H (70-110) mg/dL Calcium 6.3 L* (8.4-10.5) mg/dL Phosphorus 4.0 (2.5-4.5) mg/dL Magnesium 2.1 (1.7-2.2) mg/dL Total Bilirubin 0.2 (0.2-1.3) mg/dL AST 149 H (15-59) U/L ALT 109 H (7-56) U/L Alkaline Phosphatase 83 (38-133) U/L Troponin I ng/mL Total Protein 5.0 L (5.8-8.3) g/dL Albumin 2.7 L (3.0-4.8) g/dL Globulin 2.3 gm/dL Albumin/Globulin Ratio 1.2 (1.1-1.8) Procalcitonin 0.73 H (0.19-0.49) NG/ML Arterial Blood Potassium (3.6-5.2) mmol/L 07/11/16 07/10/16 07/10/16 Range/Units 05:00 23:50 16:55 WBC (4.5-11.0) 10^3/ul RBC (3.5-6.1) 10^6/uL Hgb (14.0-18.0) gm/dL Hct (42.0-52.0) % MCV (80.0-105.0) fL MCH (25.0-35.0) pg MCHC (31.0-37.0) g/dl RDW (11.5-14.5) % Plt Count (120.0-450.0) 10^3/uL MPV (7.0-11.0) fl Gran % (50.0-68.0) % Lymph % (Auto) (22.0-35.0) % Ashley % (Auto) (1.0-6.0) % Eos % (Auto) (1.5-5.0) % Baso % (Auto) (0.0-3.0) % Gran # (1.4-6.5) Lymph # (1.2-3.4) Ashley # (0.1-0.6) Eos # (0.0-0.7) Baso # (0.0-2.0) K/mm3 APTT 86.4 H* (23.7-30.8) Seconds pCO2 54 H 47 H (35-45) mm/Hg pO2 207.0 H 200.0 H (80-100) mm/Hg HCO3 29.1 H 26.6 (21-28) mmol/L ABG pH 7.34 L 7.36 (7.35-7.45) ABG Total CO2 30.8 H 28.0 (22-28) mmol.L ABG O2 Saturation 99.7 H 99.8 H (95-98) % ABG O2 Content 14.5 L (15-23) ML/dl ABG Base Excess 2.5 0.6 (-2.0-3.0) mmol/L ABG Hemoglobin 10.3 L (11.7-17.4) g/dL ABG Carboxyhemoglobin 1.6 H (0.5-1.5) % POC ABG HHb (Measured) 0.3 (0-5) % ABG Methemoglobin 1.1 (0.0-3.0) % ABG O2 Capacity 14.5 L (16-24) mL/dl ABG Potassium 3.9 (3.6-5.2) mmol/L Hgb O2 Saturation 97.0 (95.0-98.0) % Glucose 130 H (75-110) mg/dl Lactate 1.1 (0.7-2.1) mmol/L Mechanical Rate 14 FiO2 50.0 50.0 % Tidal Volume 350 PEEP 5 Sodium 139.0 (132-148) mmol/L Potassium (3.6-5.0) mmol/L Chloride 105.0 (95-110) mmol/L Carbon Dioxide (21-33) mmol/L Anion Gap (10-20) BUN (7-21) mg/dL Creatinine (0.5-1.4) mg/dL Est GFR ( Amer) Est GFR (Non-Af Amer) Random Glucose (70-110) mg/dL Calcium (8.4-10.5) mg/dL Phosphorus (2.5-4.5) mg/dL Magnesium (1.7-2.2) mg/dL Total Bilirubin (0.2-1.3) mg/dL AST (15-59) U/L ALT (7-56) U/L Alkaline Phosphatase (38-133) U/L Troponin I ng/mL Total Protein (5.8-8.3) g/dL Albumin (3.0-4.8) g/dL Globulin gm/dL Albumin/Globulin Ratio (1.1-1.8) Procalcitonin (0.19-0.49) NG/ML Arterial Blood Potassium 3.9 (3.6-5.2) mmol/L 07/10/ Range/Units 16:35 WBC (4.5-11.0) 10^3/ul RBC (3.5-6.1) 10^6/uL Hgb (14.0-18.0) gm/dL Hct (42.0-52.0) % MCV (80.0-105.0) fL MCH (25.0-35.0) pg MCHC (31.0-37.0) g/dl RDW (11.5-14.5) % Plt Count (120.0-450.0) 10^3/uL MPV (7.0-11.0) fl Gran % (50.0-68.0) % Lymph % (Auto) (22.0-35.0) % Ashley % (Auto) (1.0-6.0) % Eos % (Auto) (1.5-5.0) % Baso % (Auto) (0.0-3.0) % Gran # (1.4-6.5) Lymph # (1.2-3.4) Ashley # (0.1-0.6) Eos # (0.0-0.7) Baso # (0.0-2.0) K/mm3 APTT (23.7-30.8) Seconds pCO2 (35-45) mm/Hg pO2 (80-100) mm/Hg HCO3 (21-28) mmol/L ABG pH (7.35-7.45) ABG Total CO2 (22-28) mmol.L ABG O2 Saturation (95-98) % ABG O2 Content (15-23) ML/dl ABG Base Excess (-2.0-3.0) mmol/L ABG Hemoglobin (11.7-17.4) g/dL ABG Carboxyhemoglobin (0.5-1.5) % POC ABG HHb (Measured) (0-5) % ABG Methemoglobin (0.0-3.0) % ABG O2 Capacity (16-24) mL/dl ABG Potassium (3.6-5.2) mmol/L Hgb O2 Saturation (95.0-98.0) % Glucose (75-110) mg/dl Lactate (0.7-2.1) mmol/L Mechanical Rate FiO2 % Tidal Volume PEEP Sodium 138 (132-148) mmol/L Potassium 4.0 (3.6-5.0) mmol/L Chloride 100 (95-110) mmol/L Carbon Dioxide 27 (21-33) mmol/L Anion Gap 15 (10-20) BUN 57 H (7-21) mg/dL Creatinine 1.4 (0.5-1.4) mg/dL Est GFR ( Amer) 59 Est GFR (Non-Af Amer) 48 Random Glucose 123 H (70-110) mg/dL Calcium 6.4 L* (8.4-10.5) mg/dL Phosphorus (2.5-4.5) mg/dL Magnesium (1.7-2.2) mg/dL Total Bilirubin 0.5 (0.2-1.3) mg/dL AST 212 H (15-59) U/L ALT 119 H (7-56) U/L Alkaline Phosphatase 91 (38-133) U/L Troponin I 0.27 H* D ng/mL Total Protein 5.2 L (5.8-8.3) g/dL Albumin 2.8 L (3.0-4.8) g/dL Globulin 2.4 gm/dL Albumin/Globulin Ratio 1.2 (1.1-1.8) Procalcitonin (0.19-0.49) NG/ML Arterial Blood Potassium (3.6-5.2) mmol/L Laboratory Results - last 24 hr 07/10/16 07/10/16 07/10/16 16:35 16:55 23:50 WBC RBC Hgb Hct MCV MCH MCHC RDW Plt Count MPV Gran % Lymph % (Auto) Ashley % (Auto) Eos % (Auto) Baso % (Auto) Gran # Lymph # Ashley # Eos # Baso # APTT 86.4 H* pCO2 47 H pO2 200.0 H HCO3 26.6 ABG pH 7.36 ABG Total CO2 28.0 ABG O2 Saturation 99.8 H ABG O2 Content ABG Base Excess 0.6 ABG Hemoglobin ABG Carboxyhemoglobin POC ABG HHb (Measured) ABG Methemoglobin ABG O2 Capacity ABG Potassium 3.9 Hgb O2 Saturation Glucose 130 H Lactate 1.1 Mechanical Rate 14 FiO2 50.0 Tidal Volume 350 PEEP 5 Sodium 138 139.0 Potassium 4.0 Chloride 100 105.0 Carbon Dioxide 27 Anion Gap 15 BUN 57 H Creatinine 1.4 Est GFR ( Amer) 59 Est GFR (Non-Af Amer) 48 Random Glucose 123 H Calcium 6.4 L* Phosphorus Magnesium Total Bilirubin 0.5 AST 212 H ALT 119 H Alkaline Phosphatase 91 Troponin I 0.27 H* D Total Protein 5.2 L Albumin 2.8 L Globulin 2.4 Albumin/Globulin Ratio 1.2 Procalcitonin Arterial Blood Potassium 3.9 07/11/16 07/11/16 07/11/16 05:00 06:10 08:28 WBC 9.0 RBC 3.69 Hgb 10.3 L Hct 32.4 L MCV 87.8 MCH 27.9 MCHC 31.8 RDW 15.9 H Plt Count 170 MPV 9.4 Gran % 90.7 H Lymph % (Auto) 4.9 L Ashley % (Auto) 4.3 Eos % (Auto) 0.0 L Baso % (Auto) 0.1 Gran # 8.18 H Lymph # 0.4 L Ashley # 0.4 Eos # 0.0 Baso # 0.01 APTT 71.0 H* pCO2 54 H pO2 207.0 H HCO3 29.1 H ABG pH 7.34 L ABG Total CO2 30.8 H ABG O2 Saturation 99.7 H ABG O2 Content 14.5 L ABG Base Excess 2.5 ABG Hemoglobin 10.3 L ABG Carboxyhemoglobin 1.6 H POC ABG HHb (Measured) 0.3 ABG Methemoglobin 1.1 ABG O2 Capacity 14.5 L ABG Potassium Hgb O2 Saturation 97.0 Glucose Lactate Mechanical Rate FiO2 50.0 Tidal Volume PEEP Sodium 141 Potassium 4.0 Chloride 102 Carbon Dioxide 30 Anion Gap 13 BUN 61 H Creatinine 1.7 H Est GFR ( Amer) 47 Est GFR (Non-Af Amer) 39 Random Glucose 125 H Calcium 6.3 L* Phosphorus 4.0 Magnesium 2.1 Total Bilirubin 0.2 AST 149 H ALT 109 H Alkaline Phosphatase 83 Troponin I Total Protein 5.0 L Albumin 2.7 L Globulin 2.3 Albumin/Globulin Ratio 1.2 Procalcitonin 0.73 H Arterial Blood Potassium 07/11/16 13:20 WBC RBC Hgb Hct MCV MCH MCHC RDW Plt Count MPV Gran % Lymph % (Auto) Ashley % (Auto) Eos % (Auto) Baso % (Auto) Gran # Lymph # Ashley # Eos # Baso # APTT 76.6 H* pCO2 pO2 HCO3 ABG pH ABG Total CO2 ABG O2 Saturation ABG O2 Content ABG Base Excess ABG Hemoglobin ABG Carboxyhemoglobin POC ABG HHb (Measured) ABG Methemoglobin ABG O2 Capacity ABG Potassium Hgb O2 Saturation Glucose Lactate Mechanical Rate FiO2 Tidal Volume PEEP Sodium Potassium Chloride Carbon Dioxide Anion Gap BUN Creatinine Est GFR ( Amer) Est GFR (Non-Af Amer) Random Glucose Calcium Phosphorus Magnesium Total Bilirubin AST ALT Alkaline Phosphatase Troponin I Total Protein Albumin Globulin Albumin/Globulin Ratio Procalcitonin Arterial Blood Potassium EKG/Cardiology Studies: Cardiology / EKG Studies 07/10/16 15:57 EKG [ELECTROCARDIOGRAM] Stat Comment: Reason For Exam: placement tlc 07/10/16 17:21 EKG [ELECTROCARDIOGRAM] Stat Comment: Reason For Exam: HR 07/10/16 18:53 EKG [ELECTROCARDIOGRAM] Stat Comment: Reason For Exam: s/p cardioversion 07/10/16 21:01 EKG [ELECTROCARDIOGRAM] Stat Comment: Reason For Exam: s/p cardioversion Addendum Addendum: 07/11/16 16:43 patient was seen and examined at bedside with Dr. Ru Aguirre. Please see Dr. Joseph note
[2016-07-11 13:50] VITALS: PULSE 65
--- NOTE | 2016-07-11 15:25 | PN ---
DATE: 07/11/2016 SUBJECTIVE: The patient developed rapid atrial fibrillation yesterday. He was cardioverted once. H e was hypotensive and required epinephrine infusion. Subsequently, patient required intubation and m echanical ventilation. He is currently on the ventilator. He reverted back to rapid atrial fibrilla tion. There is no hypertension. PHYSICAL EXAMINATION: VITAL SIGNS: Blood pressure 120/84, heart rate 131, temperature 101.8. HEENT: Pale conjunctivae. CHEST: Diffuse bilateral rhonchi and scattered wheezing. HEART: S1, S2 regular. EXTREMITIES: Significant arm ecchymosis and 1+ edema of both arms. LABORATORIES: Hemoglobin and hematocrit 10.3 and 32.4. White count and platelet count are within no rmal limits. SMA-7: Sodium 141, potassium 4, chloride 102, CO2 30, glucose 125, BUN 61, creatinine 1 .7. Calcium is below normal at 6.3. Troponin yesterday was 0.27. Today's chest x-ray revealed a ve rtical heart, prominent bronchovascular markings. ASSESSMENT: 1. Exacerbation of chronic obstructive lung disease. The patient is currently in respiratory failur e. 2. Paroxysmal atrial fibrillation. 3. Severe aortic stenosis. 4. Borderline troponin elevation. RECOMMENDATIONS: The case was discussed at length with the tangled yarn spool straightener. Continue current IV Rocephin and IV meropenem. Continue Lasix at 40 mg intravenously twice a day, intravenous heparin in a thera peutic regimen for atrial fibrillation. I did order a dose of digoxin 0.25 mg intravenously. Obtain a venous Doppler of the lower extremities at the bedside. The patient is not a suitable candidate f or cardiac intervention for the severe aortic stenosis, at least at this time, unless the patient is stable from a pulmonary point of view. I will consider initiating Cardizem infusion if the patient r emains in rapid atrial fibrillation. Cortez Monterroso MD cc: [id number] TT: 07/11/2016 15:24:39 Confirmation # [id number] Dictation # [id number] sadia
--- NOTE | 2016-07-11 20:07 | CARD ---
APPROVED REPORT EKG Measurement Heart [id number] NH 120P66 [id number] <Conclusion> Sinus bradycardia Otherwise normal ECG
--- NOTE | 2016-07-11 20:10 | CARD ---
APPROVED REPORT EKG Measurement Heart [id number] HI 122P47 [id number] <Conclusion> Sinus bradycardia Otherwise normal ECG
--- NOTE | 2016-07-11 20:46 | US ---
HISTORY: Leg pain and swelling. Evaluate for DVT PHYSICIAN(S): Manny Chavez MD. TECHNIQUE: Duplex sonography and color-flow Doppler with graded compression were used to evaluate the deep venous systems of both lower extremities. The exam is somewhat limited by edema. FINDINGS: The visualized deep venous systems of both lower extremities are sonographically normal and compressible. Normal wave forms and augmentation are seen. There is no sonographic evidence for deep venous thrombosis in the visualized segments of both lower extremities. IMPRESSION: No sonographic evidence for deep venous thrombosis in the visualized segments of both lower extremities.
[2016-07-11] MEDS: Heparin25000 units/250ml 1/2NS 250 ML IV PRN (22:48)
[2016-07-12] MEDS ORDERED: Metoprolol 1 mg/ml Inj IVP ONE ×2 (00:38→00:39)
[2016-07-12] MEDS: Albuterol-Ipratrop 3 mg / 0.5 (3 ml) UD IH SCH ×4 (03:45→20:14)
[2016-07-12 05:25] LABS: ARTERIAL BLOOD GAS HCO3 31.4 mmol/L (21-28); ARTERIAL BLOOD GAS O2 CAPACITY 16.2 mL/dl (16-24); ARTERIAL BLOOD GAS O2 CONTENT 16.1 ML/dl (15-23); ARTERIAL BLOOD GAS PH 7.38 (7.35-7.45); ARTERIAL BLOOD HGB O2 SAT 96.4 % (95.0-98.0); CARBOXYHEMOGLOBIN 1.6 % (0.5-1.5); HHB 0.8 % (0-5); METHEMOGLOBIN 1.2 % (0.0-3.0)
[2016-07-12 06:14] LABS: BASO # 0.01 [, K/mm3] (0.0-2.0); BASO % 0.1 % (0.0-3.0); GRAN # 10.68 (1.4-6.5); GRAN % 91.6 % (50.0-68.0); HEMATOCRIT 34.3 % (42.0-52.0); LYMPH # 0.3 (1.2-3.4); LYMPH % 2.3 % (22.0-35.0); MEAN CELL VOLUME 87.7 fL (80.0-105.0); MEAN CORPUSCULAR HEMOGLOBIN 27.9 pg (25.0-35.0); MEAN CORPUSCULAR HGB CONC 31.8 g/dl (31.0-37.0); MEAN PLATELET VOLUME 10.1 fl (7.0-11.0); MONO # 0.7 (0.1-0.6); PLATELET COUNT 146 [, 10^3/uL] (120.0-450.0); RED CELL DISTRIBUTION WIDTH 16.1 % (11.5-14.5); WHITE BLOOD COUNT 11.7 [, 10^3/ul] (4.5-11.0)
[2016-07-12 06:39] LABS: ALB/GLOB RATIO 1.2 (1.1-1.8); BILIRUBIN,TOTAL 0.5 mg/dL (0.2-1.3); MAGNESIUM 2.5 mg/dL (1.7-2.2); PHOSPHOROUS 3.5 mg/dL (2.5-4.5); POTASSIUM 4.5 mmol/L (3.6-5.0); TOTAL PROTEIN 5.6 g/dL (5.8-8.3)
[2016-07-12 07:09] LABS: ADD MANUAL DIFF? NO
[2016-07-12 08:31] LABS: ARTERIAL BLOOD GAS HCO3 31.9 mmol/L (21-28); ARTERIAL BLOOD GAS O2 CAPACITY 16.3 mL/dl (16-24); ARTERIAL BLOOD GAS O2 CONTENT 16.3 ML/dl (15-23); ARTERIAL BLOOD GAS PH 7.22 (7.35-7.45); ARTERIAL BLOOD HGB O2 SAT 96.9 % (95.0-98.0); CARBOXYHEMOGLOBIN 1.8 % (0.5-1.5); HHB 0.1 % (0-5); METHEMOGLOBIN 1.1 % (0.0-3.0)
[2016-07-12] MEDS: MethylPREDNISolone 40 mg Vial IVP SCH ×2 (09:28→22:14)
[2016-07-12] MEDS: Meropenem 1g/NS 100mL IVPB 100 ML IVPB SCH ×2 (09:28→22:13)
--- NOTE | 2016-07-12 09:29 | RAD ---
HISTORY: f/u COMPARISON: Comparison is made to the previous study dated 07/11/2016 FINDINGS: LUNGS: No significant interval change in the lungs noted compared to the previous exam. The ET tube is again seen at appropriate position. PLEURA: No significant pleural effusion identified, no pneumothorax apparent. CARDIOVASCULAR: Normal. OSSEOUS STRUCTURES: No significant abnormalities. VISUALIZED UPPER ABDOMEN: The NG tube seen extending to the abdomen OTHER FINDINGS: Right jugular central line is seen in place. IMPRESSION: No significant interval change compared to the previous exam. Support devices are seen at appropriate position.
--- NOTE | 2016-07-12 09:31 | PN ---
DATE: 07/12/2016 SUBJECTIVE: The patient remains on the ventilator. He is currently sedated. PHYSICAL EXAMINATION: VITAL SIGNS: Temperature is 97.4, pulse on the monitor 74, respiratory rate 18/ 18, blood pressure 121/74. HEENT: Normocephalic, atraumatic. No JVD. CARDIOVASCULAR: Systolic ejection murmur at the low left sternal border. Questionable S3 gallop. LUNGS: Crackles at both bases. Less rhonchi. No wheezing. EXTREMITIES: Mild edema. No cyanosis, no clubbing. GASTROINTESTINAL: Abdomen is soft, nontender, nondistended. Bowel sounds are positive. SKIN: No acute rash. NEUROLOGIC: Limited at the present time. PERTINENT LABORATORY DATA: Chest x-ray was done this morning and reviewed. It is similar to yesterday's film, but overall much improved--compared to the original films. An arterial blood gas was done on assist control 18, tidal volume 350, FIO2 40%. Results are: pH 7.38, pCO2 of 53, pO2 of 146. IMPRESSION: 1. Respiratory failure. 2. End-stage chronic obstructive pulmonary disease. 3. Congestive heart failure. 4. Rapid atrial fibrillation, status post cardioversion. 5. Severe valvular heart disease. 6. Coronary artery disease. 7. Anemia. PLAN: The patient remains on the ventilator. He is currently sedated. I did discuss the case with the night nurse at length. The night nurse stated that the patient is not doing well overall. I did review the x-ray as above. The x- ray is actually significantly improved -- compared to the original films. I have also reviewed the arterial blood gas. There is normalization of the pH with a decrease in the alveolar arterial gradient. On physical exam, there is less bronchospasm noted. I will continue with the current nebulizer treatments and intravenous steroids (decreased yesterday) for now. I would continue with the antibiotic coverage as per infectious disease. Temperatures have now resolved. Input by Elizabeth Fitzpatrick (palliative care) is noted. I will discuss the above, and possible weaning trials with the ICU team in the next few moments. I will also discuss the above with the attending physician later this morning. Unfortunately, the overall status/prognosis of this patient remains very poor. Pravin Arroyo MD cc: [phone] TT: 07/12/2016 09:31:19 Confirmation # [id number] Dictation # [id number] MTDD
--- NOTE | 2016-07-12 09:41 | PN ---
DATE: 07/12/2016 SUBJECTIVE: The patient seen and examined at bedside. He is comfortable. He did not receive any boluses of sedation overnight. He is somnolent, but responding to commands. I will try him on pressure support again and even though rapid shallow breathing index around 50, he is pulling only 140-180 mL of tidal volume with respiratory rate 20. I will keep a close eye on him. We will do ABG in half an hour or earlier if needed, and we will have a low threshold of putting him back on PRVC for ventilatory support. PHYSICAL EXAMINATION: VITAL SIGNS: Heart rate 83, blood pressure 147/78, respiratory rate 20-23, end- tidal CO2 on the monitor 57, blood pressure 147/78. HEAD AND NECK: Atraumatic. LUNGS: Decreased breath sounds bilaterally. HEART: Regular rate and rhythm. S1, S2, distant. ABDOMEN: Soft, nontender, nondistended. MUSCULOSKELETAL: No C/C/E. NEUROLOGIC: The patient moves all extremities spontaneously. SKIN: Moist. PSYCHIATRIC: The patient is following commands. LABORATORY DATA: WBC 11.7, hemoglobin 10.9, platelet count 146. Sodium 142, potassium 4.5, chloride 105, carbon dioxide 31, BUN 62, creatinine 1.4 down from 1.7, glucose 146, calcium 7, AST 198, ALT 215, total bilirubin 0.5. Troponin is 0.27. Procalcitonin 0.73 up from 0.55. ABG today 7.38/53/146 on 40 % FIO2 and PRVC. MEDICATIONS: Doxycycline, heparin drip, meropenem, Solu-Medrol 40 mg IV q. 12 , intermittent vancomycin. Chest x-ray showed no acute pulmonary disease; however, a lot of chronic changes consistent with emphysema and fibrosis. ASSESSMENT AND PLAN: This is an 85-year-old gentleman with acute hypercapnic respiratory failure requiring intubation. The patient also developed atrial fibrillation with rapid ventricular response, complicated by cardiogenic shock requiring emergent cardioversion and amiodarone drip. Amiodarone drip at present time was held due to rising LFTs. The patient is on beta blockers and intermittent digoxin. He is in sinus rhythm right now. He is hemodynamically stable. Dr. Monterroso is following him as well. The patient's renal function substantially improved after Lasix was held. The patient appears to be euvolemic at present time. He is more awake and alert. It appears that the patient has very advanced almost, end-stage lung disease which was concurred by Dr. Arroyo, who is a private machine pan greaser, and PMD Dr. Craig. Even though patient appears to be comfortable at this point on pressure support 5/5, he does not pull high enough tidal volume to consider safe extubation. I will repeat ABG and will make this decision based on subsequent clinical exam, ABG, and patient's respiratory status. We will continue to target euvolemia, euglycemia, normothermia and oxygen saturation more than 90%. I will touch base with the patient about advanced directives well. We will continue with heparin drip for stroke prevention in the setting of atrial fibrillation. The patient at present time is hemodynamically stable. Addendum: ABG showed substantially worsened c02 retention and acute respiratory acidosis-->patient was put back on PRVC. Will update his family ccm time 40 min Ramesh Joseph MD cc: [id number] TT: 07/12/2016 09:41:00 Confirmation # [id number] Dictation # [id number] jn ALICIA
--- NOTE | 2016-07-12 13:17 | CP.PCM.PN ---
Subjective - Date & Time of Evaluation Date of Evaluation: 07/12/16 Time of Evaluation: 08:20 - Subjective Subjective: No fevers overnight but the patient remains intubated. Sedation is currently off and the patient is wide awake. Objective - Vital Signs/Intake and Output Vital Signs (last 24 hours): Temp Pulse Resp BP Pulse Ox 97.4 F L 159 H 15 121/74 99 07/12/16 04:00 07/12/16 00:46 07/11/16 16:30 07/12/16 00:46 07/11/16 16:30 Intake and Output: 07/11/16 07/12/16 18:59 06:59 Intake Total 821 297 Output Total 340 500 Balance 481 -203 - Medications Medications: Current Medications Acetaminophen (Tylenol 650 Mg Supp) 650 mg RC Q6H PRN PRN Reason: Fever >100.4 F Last Admin: 07/11/16 11:27 Dose: 650 mg Albuterol/Ipratropium (Duoneb 3 Mg/0.5 Mg (3 Ml) Ud) 3 ml IH Q2H PRN PRN Reason: Shortness of Breath Albuterol/Ipratropium (Duoneb 3 Mg/0.5 Mg (3 Ml) Ud) 3 ml IH [id number] [facility] Last Admin: 07/12/16 03:45 Dose: 3 ml Enoxaparin Sodium (Lovenox) 30 mg SC DAILY [facility] PRN Reason: Protocol Last Admin: 07/10/16 10:07 Dose: 30 mg Furosemide (Lasix) 40 mg IVP Q12 [facility] Last Admin: 07/10/16 21:34 Dose: 40 mg Ceftriaxone Sodium (Rocephin 1 Gram Ivpb) 100 mls @ 100 mls/hr IVPB DAILY [facility] PRN Reason: Protocol Last Admin: 07/11/16 09:05 Dose: 100 mls/hr Fentanyl Citrate (Fentanyl Citrate/Sodium Chloride 1 Mg/100 Ml) 100 mls @ 2 mls /hr IV .Q24H PRN; Protocol; 20 MCG/HR PRN Reason: TITRATE PER MD ORDER Last Titration: 07/11/16 07:17 Dose: 0 mcg/hr Midazolam 100 mg/100ml in NS (Midazolam 100 Mg/100ml In Ns) 100 mls @ 1 mls/hr IV .Q24H PRN; Protocol; 1 MG/HR PRN Reason: Agitation Last Titration: 07/11/16 07:17 Dose: 0 mg/hr Phenylephrine HCl 40 mg/ (Sodium Chloride) 254 mls @ 38.1 mls/hr IV .Q6H40M PRN ; Protocol; 100 MCG/MIN PRN Reason: TITRATE PER MD ORDER Last Titration: 07/11/16 07:15 Dose: 0 mcg/min Heparin Sodium/Sodium Chloride (Heparin 45479 Units/250ml 1/2 Normal Saline) 250 mls @ 9.144 mls/hr IV .Q24H PRN; Protocol; 18 UNITS/KG/HR PRN Reason: ADJUST RATE PER PROTOCOL Last Admin: 07/11/16 22:48 Dose: 8.128 mls/hr Doxycycline Hyclate 100 mg/ (Sodium Chloride) 100 mls @ 100 mls/hr IVPB Q12 [facility] PRN Reason: Protocol Last Admin: 07/11/16 22:43 Dose: 100 mls/hr MEROPENEM-0.9% SODIUM CHLORIDE (Meropenem 1g/Ns 100ml Ivpb) 100 mls @ 100 mls/ hr IVPB Q12 [facility] PRN Reason: Protocol Stop: 07/16/16 10:01 Last Admin: 07/11/16 22:42 Dose: 100 mls/hr Methylprednisolone (Solu-Medrol) 40 mg IVP Q12 [facility] Last Admin: 07/11/16 22:46 Dose: 40 mg Pantoprazole Sodium (Protonix Inj) 40 mg IVP DAILY [facility] Last Admin: 07/11/16 09:05 Dose: 40 mg - Labs Labs: 07/12/16 05:55 07/11/16 06:10 PT 10.0 Seconds (9.9-11.8) 07/09/16 03:05 INR 0.93 (0.93-1.08) 07/09/16 03:05 APTT 76.6 Seconds (23.7-30.8) H* 07/11/16 13:20 - Constitutional Appears: Other (Intubated and on the ventilator) - ENT Exam Additional comments: ET tube in place - Neck Exam Neck Exam: absent: Meningismus - Respiratory Exam Respiratory Exam: Decreased Breath Sounds - Cardiovascular Exam Cardiovascular Exam: +S1, +S2 - GI/Abdominal Exam GI & Abdominal Exam: Soft. absent: Tenderness Assessment and Plan - Assessment and Plan (Free Text) Plan: Assessment Consider severe sepsis with hypoxic and ventilator-dependent respiratory failure (febrile and tachycardic) and acute renal failure (slowly improving), healthcare-associated (since it's been 2 days since admission), consider secondary to healthcare-associated pneumonia with possible gram positive cocci and/or gram negative bacilli Acute renal failure severe COPD, oxygen-dependent severe aortic stenosis and insufficiency history of postherpetic neuralgia Plan continue Doxycycline and Merrem (day 2) and give one dose of IV Vancomycin; cultures are negative so far; repeat PCT is slightly elevated at 0.[address] Joseph (ICU physician) Will follow clinically Overall prognosis is poor
--- NOTE | 2016-07-12 14:27 | CP.PCM.PN ---
Subjective - Date & Time of Evaluation Date of Evaluation: 07/12/16 Time of Evaluation: 13:00 - Subjective Subjective: intubated, unresponsive. Objective - Vital Signs/Intake and Output Vital Signs (last 24 hours): Temp Pulse Resp BP Pulse Ox 98.9 F 159 H 21 121/74 100 07/12/16 12:00 07/12/16 00:46 07/12/16 08:11 07/12/16 00:46 07/12/16 08:11 Intake and Output: 07/12/16 07/12/16 06:59 18:59 Intake Total 297 Output Total 500 Balance -203 - Medications Medications: Current Medications Acetaminophen (Tylenol 650 Mg Supp) 650 mg RC Q6H PRN PRN Reason: Fever >100.4 F Last Admin: 07/11/16 11:27 Dose: 650 mg Albuterol/Ipratropium (Duoneb 3 Mg/0.5 Mg (3 Ml) Ud) 3 ml IH Q2H PRN PRN Reason: Shortness of Breath Albuterol/Ipratropium (Duoneb 3 Mg/0.5 Mg (3 Ml) Ud) 3 ml IH Q6 [facility] Last Admin: 07/12/16 13:14 Dose: 3 ml Enoxaparin Sodium (Lovenox) 30 mg SC DAILY [facility] PRN Reason: Protocol Last Admin: 07/10/16 10:07 Dose: 30 mg Furosemide (Lasix) 40 mg IVP Q12 [facility] Last Admin: 07/10/16 21:34 Dose: 40 mg Fentanyl Citrate (Fentanyl Citrate/Sodium Chloride 1 Mg/100 Ml) 100 mls @ 2 mls /hr IV .Q24H PRN; Protocol; 20 MCG/HR PRN Reason: TITRATE PER MD ORDER Last Titration: 07/11/16 07:17 Dose: 0 mcg/hr Midazolam 100 mg/100ml in NS (Midazolam 100 Mg/100ml In Ns) 100 mls @ 1 mls/hr IV .Q24H PRN; Protocol; 1 MG/HR PRN Reason: Agitation Last Titration: 07/11/16 07:17 Dose: 0 mg/hr Phenylephrine HCl 40 mg/ (Sodium Chloride) 254 mls @ 38.1 mls/hr IV .Q6H40M PRN ; Protocol; 100 MCG/MIN PRN Reason: TITRATE PER MD ORDER Last Titration: 07/11/16 07:15 Dose: 0 mcg/min Heparin Sodium/Sodium Chloride (Heparin 90656 Units/250ml 1/2 Normal Saline) 250 mls @ 9.144 mls/hr IV .Q24H PRN; Protocol; 18 UNITS/KG/HR PRN Reason: ADJUST RATE PER PROTOCOL Last Admin: 07/11/16 22:48 Dose: 8.128 mls/hr Doxycycline Hyclate 100 mg/ (Sodium Chloride) 100 mls @ 100 mls/hr IVPB Q12 [facility] PRN Reason: Protocol Last Admin: 07/12/16 09:29 Dose: 100 mls/hr MEROPENEM-0.9% SODIUM CHLORIDE (Meropenem 1g/Ns 100ml Ivpb) 100 mls @ 100 mls/ hr IVPB Q12 [facility] PRN Reason: Protocol Stop: 07/16/16 10:01 Last Admin: 07/12/16 09:28 Dose: 100 mls/hr Methylprednisolone (Solu-Medrol) 40 mg IVP Q12 [facility] Last Admin: 07/12/16 09:28 Dose: 40 mg Pantoprazole Sodium (Protonix Inj) 40 mg IVP DAILY [facility] Last Admin: 07/12/16 09:28 Dose: 40 mg - Labs Labs: 07/12/16 05:55 07/12/16 05:55 PT 10.0 Seconds (9.9-11.8) 07/09/16 03:05 INR 0.93 (0.93-1.08) 07/09/16 03:05 APTT 76.6 Seconds (23.7-30.8) H* 07/11/16 13:20 - Constitutional Appears: Chronically Ill - Head Exam Head Exam: NORMAL INSPECTION - Eye Exam Eye Exam: Normal appearance, PERRL - ENT Exam ENT Exam: Mucous Membranes Moist - Respiratory Exam Respiratory Exam: Decreased Breath Sounds, NORMAL BREATHING PATTERN - Cardiovascular Exam Cardiovascular Exam: Irregular Rhythm, +S1, +S2 - GI/Abdominal Exam GI & Abdominal Exam: Soft, Diminished Bowel Sounds - Extremities Exam Extremities Exam: Normal Inspection - Neurological Exam Neurological Exam: Altered - Skin Skin Exam: Dry, Pallor Assessment and Plan - Assessment and Plan (Free Text) Assessment: 85 year old male admitted with sepsis, atrial fibrillation with RVR, cardiogenic shock,respiratory failure requiring intubation. I spoke with patient's daughter, Dr. Gutierrez via phone. Daughter is aware of patient's medical status and poor prognosis. Family is considering terminal extuabtion. Daughter intends to speak with doctor Kiara today before making decision. Daughter indicated that if they proceed with terminal extuabtion that this would likely occur on Saturday when all family members can be present. Comfort care/hospice services explained explained in detail. If family is agreeable would refer for [facility] services for care after extuabation. Psychosocial support given. Daughter has my conratc information and will follow up with me once a decision has been made. Plan: Will assist family in establishing goals of care and with end of life care planning
--- NOTE | 2016-07-12 14:29 | PN ---
DATE: 07/12/2016 SUBJECTIVE: The patient is still on a ventilator. He is currently in sinus rhythm. PHYSICAL EXAMINATION: VITAL SIGNS: Blood pressure 121/74, temperature 97.4, heart rate 68. HEENT: Pale conjunctivae. CHEST: Bilateral rhonchi. HEART: S1, S2 regular. EXTREMITIES: Significant arm ecchymosis. LABORATORIES: Hemoglobin and hematocrit 10.9 and 34.3, white count 11.7, platelet count 146,000. SM A-7: Sodium 142, potassium 4.5, chloride 105, CO2 31, glucose 146, BUN 62, creatinine 1.4. Calcium is 7.0. ASSESSMENT: 1. Acute respiratory failure. 2. Severe aortic stenosis. 3. Paroxysmal atrial fibrillation. 4. Advanced chronic obstructive lung disease. 5. Prerenal azotemia. RECOMMENDATIONS: I did review Dr. Joseph's assessment and plan and I agreed with it. Continue IV heparin and therapeutic regimen, continue IV doxycycline and IV meropene m. Continue IV Solu-Medrol. The patient advanced interstitial lung status does not qualify him for any aggressive cardiac intervention. Cortez Monterroso MD cc: [id number] TT: 07/12/2016 14:29:08 Confirmation # [id number] Dictation # [id number] mn
[2016-07-12] MEDS ORDERED: Morphine 2 mg/ml ISec IVP STA (20:08)
[2016-07-12] MEDS ORDERED: Albuterol-Ipratrop 3 mg / 0.5 (3 ml) UD IH SCH (22:19)
--- NOTE | 2016-07-12 23:05 | PN ---
DATE: 07/12/2016 SUBJECTIVE: The patient remains in intensive care unit. The patient is intubated. He is on low dose of sedation. The patient is awake and responsive. IV treatment was changed by ID after developed new fever. PHYSICAL EXAMINATION: VITAL SIGNS: This morning showed temperature 98.7, blood pressure 121/74, pulse 78 regular, FIO2 on respirator 30%. GENERAL: Awake, more responsive, in no acute form of distress. HEENT: Head is normocephalic, atraumatic. Oral mucosa seems dry. NECK: Supple. SKIN: Multiple skin ecchymotic areas on neck and arms. LUNGS: With decreased breath sounds, scattered rhonchi. HEART: With irregular rhythm. ABDOMEN: Soft, nontender, nondistended. EXTREMITIES: With no edema. DIAGNOSTIC TESTS: This morning his CBC significant for WBC 11.7, hemoglobin 10.9. His blood gas showed ABG 7.38, pCO2 53 and pO2 146 with oxygen sat 99%. Chemistry: Normal electrolytes, increase of liver enzymes with AST 198 and ALT 215 this morning. Renal function with BUN 62 and creatinine 1.4. His procalcitonin 0.73. Blood cultures are negative after 48 hours. Sputum culture : Normal carly. Repeated chest x-ray today: No significant changes since last exam. ASSESSMENT: 1. Respiratory failure. 2. End-stage lung disease. 3. Pneumonia. 4. New onset of atrial fibrillation status post cardioversion, currently in sinus rhythm. 5. Congestive heart failure. 6. Anemia. PLAN OF TREATMENT: 1. Respiratory: The patient will remain on ventilator; attempted to change setting, but the patient failed attempt, very poor lung reserve. We will continue Solu-Medrol and bronchodilators. 2. Cardiac: The patient is off amiodarone, blood pressure is stable. No need for pressors, patient will be maintained on beta olga and digoxin. Lasix is on hold due to lower blood pressure. The patient is also maintained on heparin. 3. ID followup cultures. Continue current IV coverage with doxycycline and meropenem. Case was discussed with family members and Dr. Joseph. I spoke with the daughter who discussed patient's condition and very poor prognosis . She also discussed with palliative nurse. She agreed to DNR. They family also is considering extubation on weekend. Vidhi Shea MD cc: [id number] TT: 07/12/2016 23:04:25 Confirmation # [id number] Dictation # [id number] [id number] MTDD
[2016-07-13] MEDS ORDERED: Metoprolol 1 mg/ml Inj IVP ONE (03:43)
[2016-07-13 05:45] LABS: ARTERIAL BLOOD GAS HCO3 32.3 mmol/L (21-28); ARTERIAL BLOOD GAS O2 CAPACITY 16.9 mL/dl (16-24); ARTERIAL BLOOD GAS O2 CONTENT 16.4 ML/dl (15-23); ARTERIAL BLOOD GAS PH 7.41 (7.35-7.45); ARTERIAL BLOOD HGB O2 SAT 93.9 % (95.0-98.0); CARBOXYHEMOGLOBIN 2.1 % (0.5-1.5); HHB 2.7 % (0-5); METHEMOGLOBIN 1.3 % (0.0-3.0)
[2016-07-13] MEDS ORDERED: Amiodarone 150 mg/D5W 100 ml 100 ML IVPB ONE (05:47)
[2016-07-13 06:32] LABS: HEMATOCRIT 37.2 % (42.0-52.0); MEAN CELL VOLUME 89.4 fL (80.0-105.0); MEAN CORPUSCULAR HEMOGLOBIN 28.1 pg (25.0-35.0); MEAN CORPUSCULAR HGB CONC 31.5 g/dl (31.0-37.0); MEAN PLATELET VOLUME 10.5 fl (7.0-11.0); PLATELET COUNT 157 [, 10^3/uL] (120.0-450.0); RED CELL DISTRIBUTION WIDTH 16.4 % (11.5-14.5); WHITE BLOOD COUNT 20.5 [, 10^3/ul] (4.5-11.0)
[2016-07-13 06:34] LABS: ADD MANUAL DIFF? YES
[2016-07-13 07:00] LABS: BAND 4 % (0-2); NEUTROPHIL 89 % (50.0-70.0)
[2016-07-13 07:01] LABS: ANISOCYTOSIS SLIGHT; PLATELET ESTIMATE NORMAL (NORMAL)
[2016-07-13] MEDS ORDERED: Dexmedetomidine HCl 4mcg/ml 100 ML IV PRN (07:09)
[2016-07-13] MEDS: Albuterol-Ipratrop 3 mg / 0.5 (3 ml) UD IH SCH ×3 (07:14→20:15)
[2016-07-13 07:31] LABS: ALB/GLOB RATIO 1.1 (1.1-1.8); ALKALINE PHOSPHATASE 97 U/L (38-133); ALT/SGPT 234 U/L (7-56); AST/SGOT 136 U/L (15-59); BILIRUBIN,TOTAL 0.6 mg/dL (0.2-1.3); BLOOD UREA NITROGEN 54 mg/dL (7-21); CALCIUM 7.8 mg/dL (8.4-10.5); CARBON DIOXIDE 31 mmol/L (21-33); CHLORIDE 109 mmol/L (98-107); GFR AFRICAN-AMERICAN > 60; GLUCOSE,RANDOM 180 mg/dL (70-110); MAGNESIUM 2.8 mg/dL (1.7-2.2); PHOSPHOROUS 2.6 mg/dL (2.5-4.5); POTASSIUM 4.4 mmol/L (3.6-5.0); SODIUM 147 mmol/L (132-148); TOTAL PROTEIN 5.8 g/dL (5.8-8.3)
--- NOTE | 2016-07-13 07:57 | CP.CCUPN ---
<Ru Aguirre - Last Filed: 07/13/16 10:02> CCU Subjective - Physician Review Subjective (Free Text): Pt s&e w ICU attending. Pt is intubated and off sedation . Pt is unarousable, response to stimuli and follows commands. Pt was tachycardic and hypotensive.Hydralazine and amiodarone was given. Pt continue to be tachycardic. Cardizem drip is initiated. Pt is on heparin drip, tube feed and amiodarone. Vent setting is at RPVC 30% FiO2 09/06/350. 07/13/16 10:02 07/13/16 10:05 CCU Objective - Vital Signs / Intake & Output Vital Signs (Last 4 hours): Vital Signs Temp Pulse Resp BP Pulse Ox 07/13/16 07:37 153 H 07/13/16 07:22 22 96 07/13/16 06:31 152 H 24 147/84 97 07/13/16 04:07 91 H 186/80 H 07/13/16 04:00 98.6 F 92 H 18 186/80 H 99 Intake and Output (Last 8hrs): Intake & Output 07/12/16 07/13/16 07/13/16 22:59 06:59 14:59 Intake Total 677 646 Output Total 500 450 Balance 177 196 Weight 113 lb Intake: IV 197 346 Right Internal Jugular 50 Heparin drip 97 96 Antibiotics 100 200 Oral 0 Tube Feeding 360 300 Other 120 Output: Urine 500 450 Urethral ([place]) 500 Urine, Voided 450 Other 0 Other: Voiding Method Indwelling Catheter Indwelling Catheter # Bowel Movements 0 2 - Physical Exam Head: Positive for: Atraumatic, Normocephalic Pupils: Positive for: PERRL Extroacular Muscles: Positive for: EOMI Conjunctiva: Positive for: Normal Mouth: Positive for: Dry Neck: Positive for: Normal Range of Motion Respiratory/Chest: Positive for: Respiratory Distress (Intubated), Rales, Other. Negative for: Accessory Muscle Use Cardiovascular: Positive for: Normal S1, S2, Tachycardic. Negative for: Murmurs Abdomen: Positive for: Normal Bowel Sounds. Negative for: Tenderness, Distention, Peritoneal Signs Back: Positive for: Normal Inspection Upper Extremity: Positive for: Normal Inspection. Negative for: Cyanosis, Edema Lower Extremity: Positive for: Normal Inspection. Negative for: Edema Neurological: Positive for: GCS=15, CN II-XII Intact Skin: Positive for: Warm, Dry, Other (Ecchymosis ). Negative for: Rashes Psychiatric: Positive for: Alert, Oriented x 3, Normal Insight - Medications Active Medications: Active Medications Generic Name Dose Route Start Last Admin Trade Name Freq PRN Reason Stop Dose Admin Acetaminophen 650 mg 07/11/16 05:02 07/11/16 11:27 Tylenol 650 Mg Supp RC 650 mg Q6H PRN Administration Fever >100.4 F Albuterol/Ipratropium 3 ml 07/09/16 04:45 Duoneb 3 Mg/0.5 Mg (3 Ml) Ud IH Q2H PRN Shortness of Breath Albuterol/Ipratropium 3 ml 07/13/16 07:13 07/13/16 07:14 Duoneb 3 Mg/0.5 Mg (3 Ml) Ud IH 3 ml [id number] LUCIO Administration Enoxaparin Sodium 30 mg 07/09/16 12:15 07/10/16 10:07 Lovenox SC 30 mg DAILY LUCIO Administration Protocol Fentanyl 100 mcg 07/13/16 07:11 07/13/16 07:22 Fentanyl IVP 100 mcg Q6 PRN Administration Pain, moderate (4-7) Furosemide 40 mg 07/09/16 10:00 07/10/16 21:34 Lasix IVP 40 mg Q12 LUCIO Administration Fentanyl Citrate 100 mls @ 2 mls/hr 07/10/16 08:51 07/11/16 07:17 Fentanyl Citrate/Sodium Chloride 1 Mg/100 Ml IV 0 mcg/hr .Q24H PRN Titration TITRATE PER MD ORDER Protocol 20 MCG/HR Midazolam 100 mg/100ml in NS 100 mls @ 1 mls/hr 07/10/16 08:50 07/11/16 07:17 Midazolam 100 Mg/100ml In Ns IV 0 mg/hr .Q24H PRN Titration Agitation Protocol 1 MG/HR Phenylephrine HCl 40 mg/ 254 mls @ 38.1 mls/hr 07/10/16 15:11 07/11/16 07:15 Sodium Chloride IV 0 mcg/min .Q6H40M PRN Titration TITRATE PER MD ORDER Protocol 100 MCG/MIN Heparin Sodium/Sodium Chloride 250 mls @ 9.144 mls/hr 07/10/16 17:21 07/11/16 22:48 Heparin 98804 Units/250ml 1/2 Normal Saline IV 8.128 mls/hr .Q24H PRN Administration ADJUST RATE PER PROTOCOL Protocol 18 UNITS/KG/HR Doxycycline Hyclate 100 mg/ 100 mls @ 100 mls/hr 07/11/16 10:00 07/12/16 22:00 Sodium Chloride IVPB 100 mls/hr Q12 LUCIO Administration Protocol MEROPENEM-0.9% SODIUM CHLORIDE 100 mls @ 100 mls/hr 07/11/16 10:00 07/12/16 22: 13 Meropenem 1g/Ns 100ml Ivpb IVPB 07/16/16 10:01 100 mls/hr Q12 LUCIO Administration Protocol Dexmedetomidine HCl 100 mls @ 2.563 mls/hr 07/13/16 07:09 07/13/16 07:22 Precedex 4 Mcg/Ml (100 Ml) IV 2.563 mls/hr .Q24H PRN Administration Agitation Protocol 0.2 MCG/KG/HR Lorazepam 1 mg 07/13/16 07:50 Ativan IVP Q6H PRN Anxiety Protocol Methylprednisolone 40 mg 07/11/16 10:00 07/12/16 22:14 Solu-Medrol IVP 40 mg Q12 LUCIO Administration Pantoprazole Sodium 40 mg 07/11/16 10:00 07/12/16 09:28 Protonix Inj IVP 40 mg DAILY LUCIO Administration - Patient Studies Lab Studies: Microbiology Studies 07/11/16 05:30 Blood Culture - Preliminary Blood NO GROWTH AFTER 48 HOURS 07/11/16 05:30 Blood Culture - Preliminary Blood NO GROWTH AFTER 48 HOURS 07/09/16 20:01 Gram Stain - Final Sputum Sputum Culture - Final NORMAL ORAL JANEY Lab Studies 07/13/16 07/13/16 07/12/16 Range/Units 06:00 05:20 08:20 WBC 20.5 H D (4.5-11.0) 10^3/ul RBC 4.16 (3.5-6.1) 10^6/uL Hgb 11.7 L (14.0-18.0) gm/dL Hct 37.2 L (42.0-52.0) % MCV 89.4 (80.0-105.0) fL MCH 28.1 (25.0-35.0) pg MCHC 31.5 (31.0-37.0) g/dl RDW 16.4 H (11.5-14.5) % Plt Count 157 (120.0-450.0) 10^3/uL MPV 10.5 (7.0-11.0) fl Neutrophils % (Manual) 89 H (50.0-70.0) % Band Neutrophils % 4 H (0-2) % Lymphocytes % (Manual) 4 L (22.0-35.0) % Monocytes % (Manual) 3 (1.0-6.0) % Platelet Evaluation Normal (NORMAL) Anisocytosis (manual) Slight APTT 48.5 H (23.7-30.8) Seconds pCO2 51 H 78 H* (35-45) mm/Hg pO2 79.0 L 252.0 H (80-100) mm/Hg HCO3 32.3 H 31.9 H (21-28) mmol/L ABG pH 7.41 7.22 L (7.35-7.45) ABG Total CO2 33.9 H 34.3 H (22-28) mmol.L ABG O2 Saturation 97.2 99.9 H (95-98) % ABG O2 Content 16.4 16.3 (15-23) ML/dl ABG Base Excess 6.4 H 2.3 (-2.0-3.0) mmol/L ABG Hemoglobin 12.4 11.5 L (11.7-17.4) g/dL ABG Carboxyhemoglobin 2.1 H 1.8 H (0.5-1.5) % POC ABG HHb (Measured) 2.7 0.1 (0-5) % ABG Methemoglobin 1.3 1.1 (0.0-3.0) % ABG O2 Capacity 16.9 16.3 (16-24) mL/dl Hgb O2 Saturation 93.9 L 96.9 (95.0-98.0) % FiO2 30.0 30.0 % Sodium 147 (132-148) mmol/L Potassium 4.4 (3.6-5.0) mmol/L Chloride 109 H (98-107) mmol/L Carbon Dioxide 31 (21-33) mmol/L Anion Gap 11 (10-20) BUN 54 H (7-21) mg/dL Creatinine 0.9 (0.5-1.4) mg/dL Est GFR ( Amer) > 60 Est GFR (Non-Af Amer) > 60 Random Glucose 180 H (70-110) mg/dL Calcium 7.8 L (8.4-10.5) mg/dL Phosphorus 2.6 (2.5-4.5) mg/dL Magnesium 2.8 H (1.7-2.2) mg/dL Total Bilirubin 0.6 (0.2-1.3) mg/dL AST 136 H (15-59) U/L ALT 234 H (7-56) U/L Alkaline Phosphatase 97 (38-133) U/L Total Protein 5.8 (5.8-8.3) g/dL Albumin 3.1 (3.0-4.8) g/dL Globulin 2.7 gm/dL Albumin/Globulin Ratio 1.1 (1.1-1.8) Laboratory Results - last 24 hr 07/12/16 07/13/16 07/13/16 08:20 05:20 06:00 WBC 20.5 H D RBC 4.16 Hgb 11.7 L Hct 37.2 L MCV 89.4 MCH 28.1 MCHC 31.5 RDW 16.4 H Plt Count 157 MPV 10.5 Neutrophils % (Manual) 89 H Band Neutrophils % 4 H Lymphocytes % (Manual) 4 L Monocytes % (Manual) 3 Platelet Evaluation Normal Anisocytosis (manual) Slight APTT 48.5 H pCO2 78 H* 51 H pO2 252.0 H 79.0 L HCO3 31.9 H 32.3 H ABG pH 7.22 L 7.41 ABG Total CO2 34.3 H 33.9 H ABG O2 Saturation 99.9 H 97.2 ABG O2 Content 16.3 16.4 ABG Base Excess 2.3 6.4 H ABG Hemoglobin 11.5 L 12.4 ABG Carboxyhemoglobin 1.8 H 2.1 H POC ABG HHb (Measured) 0.1 2.7 ABG Methemoglobin 1.1 1.3 ABG O2 Capacity 16.3 16.9 Hgb O2 Saturation 96.9 93.9 L FiO2 30.0 30.0 Sodium 147 Potassium 4.4 Chloride 109 H Carbon Dioxide 31 Anion Gap 11 BUN 54 H Creatinine 0.9 Est GFR ( Amer) > 60 Est GFR (Non-Af Amer) > 60 Random Glucose 180 H Calcium 7.8 L Phosphorus 2.6 Magnesium 2.8 H Total Bilirubin 0.6 AST 136 H ALT 234 H Alkaline Phosphatase 97 Total Protein 5.8 Albumin 3.1 Globulin 2.7 Albumin/Globulin Ratio 1.1 Review of Systems - Review of Systems Systems not reviewed;Unavailable: Intubated Critical Care Progress Note - Ventilator Checklist Head of Bed 30 Degrees: Yes PUD Prophalyxis: Yes DVT Prophylaxis: Yes Assessment/Plan - Assessment and Plan (Free Text) Assessment: This is an 85 yo [place] African M with PMH severe COPD (oxygen/steroid dependent), abdominal mass identified on CT, progressive weight loss, severe aortic stenosis , severe aortic regurgitation, urinary retention, and postherpetic neuralgia, who presents to the ED for acute onset shortness of breath. Hypercapnic respiratory failure : vent dependent New onset A-fib RVR Plan: Neuro: AAOx3 -Fentanyl/Ativan/Precedex/versed PRN -Tylenol CV: Afib RVR Keep MAP 65+ -Cardio following: digoxin given -CXR: LLL atelectasis/infltrate, central emphysema. Suspicious for CHF/fluid overload, but no cardiomegaly -Amiodarone drip -Cardizem drip -Echo: sever aortic stenosi,s 50+% EF -f/u repeat Echo -Strict I's and O's, daily weights -Heparin drip Pulm: Hypercapnic respiratory failure vent dependent : 30% fio2 5 18 350 -Maintain SaO2 > 90% and paO2 > 60 -ABG : 7.41 51 79 32.3 -As per Primary, Pulm following -Duonebs q4 lucio and q2 prn -Solumedrol -Head of bed to 30 degrees -Aspiration precaution GI: -NPO /Enteral diet -Protonix for Ppx Renal: - Urine output: 1 L /24hrs -Cr 0.9<-1.7<-1.4<-0.8 (baseline is 0.7-1.0 per charting), continue to monitor -monitor and replete electrolytes as needed -avoid nephrotoxic drugs where feasible -maintain euglycemia (140-180), euvolemia Heme: -Hgb 12.5->10->11.7, baseline per charting is 13-14 -PTT 48.5 -continue to monitor -DVT ppx with SCDs, heparin drip ID: -Afebrile. Leukocytosis 20.5k trending up -Procalcitonin: 0.55->0.73 -F/U shah cx -Tylenol PRN -ID following merrem, Doxy Dispo: ICU for vent dependent respiratory failure. f/u palliative Access: Peripheral IV, RIJ CVC Consults: Pulm, Cardio, ID Ppx: SCDs for DVT, Protonix for GI Patient seen, reviewed, and discussed with attending <Mahamed Lopez - Last Filed: 07/13/16 11:26> CCU Objective - Vital Signs / Intake & Output Vital Signs (Last 4 hours): Vital Signs Temp Pulse Resp BP Pulse Ox 07/13/16 10:00 109 H 07/13/16 09:13 153 H 142/69 07/13/16 07:57 97.8 F 140 H 16 117/68 99 07/13/16 07:37 153 H 07/13/16 07:22 22 96 Intake and Output (Last 8hrs): Intake & Output 07/12/16 07/13/16 07/13/16 22:59 06:59 14:59 Intake Total 677 646 Output Total 500 450 Balance 177 196 Weight 113 lb Intake: IV 197 346 Right Internal Jugular 50 Heparin drip 97 96 Antibiotics 100 200 Oral 0 Tube Feeding 360 300 Other 120 Output: Urine 500 450 Urethral ([place]) 500 Urine, Voided 450 Other 0 Other: Voiding Method Indwelling Catheter Indwelling Catheter # Bowel Movements 0 2 - Medications Active Medications: Active Medications Generic Name Dose Route Start Last Admin Trade Name Freq PRN Reason Stop Dose Admin Acetaminophen 650 mg 07/11/16 05:02 07/11/16 11:27 Tylenol 650 Mg Supp RC 650 mg Q6H PRN Administration Fever >100.4 F Albuterol/Ipratropium 3 ml 07/09/16 04:45 Duoneb 3 Mg/0.5 Mg (3 Ml) Ud IH Q2H PRN Shortness of Breath Albuterol/Ipratropium 3 ml 07/13/16 07:13 07/13/16 07:14 Duoneb 3 Mg/0.5 Mg (3 Ml) Ud IH 3 ml [id number] LUCIO Administration Ascorbic Acid 250 mg 07/13/16 10:45 Vitamin C 500 Mg Tab PO DAILY LUCIO Enoxaparin Sodium 30 mg 07/09/16 12:15 07/10/16 10:07 Lovenox SC 30 mg DAILY LUCIO Administration Protocol Fentanyl 25 mcg 07/13/16 09:10 Fentanyl IVP Q3 PRN Pain, moderate (4-7) Furosemide 40 mg 07/09/16 10:00 07/10/16 21:34 Lasix IVP 40 mg Q12 LUCIO Administration Fentanyl Citrate 100 mls @ 2 mls/hr 07/10/16 08:51 07/11/16 07:17 Fentanyl Citrate/Sodium Chloride 1 Mg/100 Ml IV 0 mcg/hr .Q24H PRN Titration TITRATE PER MD ORDER Protocol 20 MCG/HR Phenylephrine HCl 40 mg/ 254 mls @ 38.1 mls/hr 07/10/16 15:11 07/11/16 07:15 Sodium Chloride IV 0 mcg/min .Q6H40M PRN Titration TITRATE PER MD ORDER Protocol 100 MCG/MIN Heparin Sodium/Sodium Chloride 250 mls @ 9.144 mls/hr 07/10/16 17:21 07/11/16 22:48 Heparin 71813 Units/250ml 1/2 Normal Saline IV 8.128 mls/hr .Q24H PRN Administration ADJUST RATE PER PROTOCOL Protocol 18 UNITS/KG/HR Doxycycline Hyclate 100 mg/ 100 mls @ 100 mls/hr 07/11/16 10:00 07/13/16 09:50 Sodium Chloride IVPB 100 mls/hr Q12 LUCIO Administration Protocol Dexmedetomidine HCl 100 mls @ 2.563 mls/hr 07/13/16 07:09 07/13/16 08:00 Precedex 4 Mcg/Ml (100 Ml) IV 0.4 mcg/kg/hr .Q24H PRN Titration Agitation Protocol 0.2 MCG/KG/HR diltiaZEM IVPB 100mg in NS 100 mls @ 5 mls/hr 07/13/16 09:12 07/13/16 09:50 Cardizem 100mg In Ns IV 10 mg/hr .Q20H PRN Titration TITRATE PER MD ORDER Protocol 5 MG/HR Meropenem 1g/NS 100mL IVPB 100 mls @ 100 mls/hr 07/13/16 14:00 Meropenem 1g/Ns 100ml Ivpb IVPB 07/18/16 14:01 Q8 LUCIO Protocol Midazolam 100 mg/100ml in NS 100 mls @ 1 mls/hr 07/13/16 09:56 Midazolam 100 Mg/100ml In Ns IV .Q24H PRN Anxiety Protocol 1 MG/HR Lorazepam 1 mg 07/13/16 07:50 07/13/16 09:51 Ativan IVP 1 mg Q6H PRN Administration Anxiety Protocol Methylprednisolone 40 mg 07/11/16 10:00 07/13/16 09:15 Solu-Medrol IVP 40 mg Q12 LUCIO Administration Pantoprazole Sodium 40 mg 07/11/16 10:00 07/13/16 09:14 Protonix Inj IVP 40 mg DAILY LUCIO Administration - Patient Studies Lab Studies: Microbiology Studies 07/11/16 05:30 Blood Culture - Preliminary Blood NO GROWTH AFTER 48 HOURS 07/11/16 05:30 Blood Culture - Preliminary Blood NO GROWTH AFTER 48 HOURS 07/09/16 20:01 Gram Stain - Final Sputum Sputum Culture - Final NORMAL ORAL JANEY Lab Studies 07/13/16 07/13/16 Range/Units 06:00 05:20 WBC 20.5 H D (4.5-11.0) 10^3/ul RBC 4.16 (3.5-6.1) 10^6/uL Hgb 11.7 L (14.0-18.0) gm/dL Hct 37.2 L (42.0-52.0) % MCV 89.4 (80.0-105.0) fL MCH 28.1 (25.0-35.0) pg MCHC 31.5 (31.0-37.0) g/dl RDW 16.4 H (11.5-14.5) % Plt Count 157 (120.0-450.0) 10^3/uL MPV 10.5 (7.0-11.0) fl Neutrophils % (Manual) 89 H (50.0-70.0) % Band Neutrophils % 4 H (0-2) % Lymphocytes % (Manual) 4 L (22.0-35.0) % Monocytes % (Manual) 3 (1.0-6.0) % Platelet Evaluation Normal (NORMAL) Anisocytosis (manual) Slight APTT 48.5 H (23.7-30.8) Seconds pCO2 51 H (35-45) mm/Hg pO2 79.0 L (80-100) mm/Hg HCO3 32.3 H (21-28) mmol/L ABG pH 7.41 (7.35-7.45) ABG Total CO2 33.9 H (22-28) mmol.L ABG O2 Saturation 97.2 (95-98) % ABG O2 Content 16.4 (15-23) ML/dl ABG Base Excess 6.4 H (-2.0-3.0) mmol/L ABG Hemoglobin 12.4 (11.7-17.4) g/dL ABG Carboxyhemoglobin 2.1 H (0.5-1.5) % POC ABG HHb (Measured) 2.7 (0-5) % ABG Methemoglobin 1.3 (0.0-3.0) % ABG O2 Capacity 16.9 (16-24) mL/dl Hgb O2 Saturation 93.9 L (95.0-98.0) % FiO2 30.0 % Sodium 147 (132-148) mmol/L Potassium 4.4 (3.6-5.0) mmol/L Chloride 109 H (98-107) mmol/L Carbon Dioxide 31 (21-33) mmol/L Anion Gap 11 (10-20) BUN 54 H (7-21) mg/dL Creatinine 0.9 (0.5-1.4) mg/dL Est GFR ( Amer) > 60 Est GFR (Non-Af Amer) > 60 Random Glucose 180 H (70-110) mg/dL Calcium 7.8 L (8.4-10.5) mg/dL Phosphorus 2.6 (2.5-4.5) mg/dL Magnesium 2.8 H (1.7-2.2) mg/dL Total Bilirubin 0.6 (0.2-1.3) mg/dL AST 136 H (15-59) U/L ALT 234 H (7-56) U/L Alkaline Phosphatase 97 (38-133) U/L Total Protein 5.8 (5.8-8.3) g/dL Albumin 3.1 (3.0-4.8) g/dL Globulin 2.7 gm/dL Albumin/Globulin Ratio 1.1 (1.1-1.8) Laboratory Results - last 24 hr 07/13/16 07/13/16 05:20 06:00 WBC 20.5 H D RBC 4.16 Hgb 11.7 L Hct 37.2 L MCV 89.4 MCH 28.1 MCHC 31.5 RDW 16.4 H Plt Count 157 MPV 10.5 Neutrophils % (Manual) 89 H Band Neutrophils % 4 H Lymphocytes % (Manual) 4 L Monocytes % (Manual) 3 Platelet Evaluation Normal Anisocytosis (manual) Slight APTT 48.5 H pCO2 51 H pO2 79.0 L HCO3 32.3 H ABG pH 7.41 ABG Total CO2 33.9 H ABG O2 Saturation 97.2 ABG O2 Content 16.4 ABG Base Excess 6.4 H ABG Hemoglobin 12.4 ABG Carboxyhemoglobin 2.1 H POC ABG HHb (Measured) 2.7 ABG Methemoglobin 1.3 ABG O2 Capacity 16.9 Hgb O2 Saturation 93.9 L FiO2 30.0 Sodium 147 Potassium 4.4 Chloride 109 H Carbon Dioxide 31 Anion Gap 11 BUN 54 H Creatinine 0.9 Est GFR ( Amer) > 60 Est GFR (Non-Af Amer) > 60 Random Glucose 180 H Calcium 7.8 L Phosphorus 2.6 Magnesium 2.8 H Total Bilirubin 0.6 AST 136 H ALT 234 H Alkaline Phosphatase 97 Total Protein 5.8 Albumin 3.1 Globulin 2.7 Albumin/Globulin Ratio 1.1 Attending/Attestation - Attestation I have personally seen and examined this patient.: Yes I have fully participated in the care of the patient.: Yes I have reviewed all pertinent clinical information: Yes Notes (Text): 07/13/16 11:20 The patient was seen and examined at the bedside. Patient care was discussed with resident Medical records, lab studies, and imaging were reviewed and management issues were discussed and formulated. Last 24H events reviewed. Agree with above treatment plans as outlined in 's note with addition of the following: -hemodynamic monitoring to maintain MAP>65 -pt SBP 140-150 this AM and HR 140 -pt responded well to cardizem push and cardizem drip was started -hold off amio as LFT elevated -cardiology team f\u -mechanical ventilation and o2 supplementation to maintain Spo2 >90 Pao2>60 -monitor for TV 6ml\kg IBW and plateau pressure <30 -ABG in AM reviewed -continue nebs and solumedrol -continue broad spectrum Abx as per ID team ; f\u cultures and levels -f\u Bun\Cr and U\o -monitor and replace e-lites -tube feeds and aspiration precautions -continue anticoagulation and f\u PTT and monitor for bleeding -f\u serial LFTs and consider RUQ US -sedation and pain meds PRN -DVT \ PUD prophylaxis -Palliation team f\u DW PMD in detail. As per PMD she has discussed goals of care and advance directives with pt's family. As per family wishes and patient's wishes, whom PMD knows for a long time, code status has been changed to DNR. We will continue discussion with family regarding goals of care for this critically ill pt CCM f\u 35min
[2016-07-13] MEDS ORDERED: diltiaZEM IVPB 100mg in NS 100 ML IV PRN (09:12)
[2016-07-13] MEDS: Meropenem 1g/NS 100mL IVPB 100 ML IVPB SCH ×3 (09:14→21:38)
[2016-07-13] MEDS: MethylPREDNISolone 40 mg Vial IVP SCH ×2 (09:15→21:41)
--- NOTE | 2016-07-13 09:21 | CP.PCM.PN ---
Subjective - Date & Time of Evaluation Date of Evaluation: 07/13/16 Time of Evaluation: 07:30 - Subjective Subjective: Continues to be on the ventilator; no fevers overnight. Sedated but easily arousable. Objective - Vital Signs/Intake and Output Vital Signs (last 24 hours): Temp Pulse Resp BP Pulse Ox 98.6 F 153 H 22 147/84 96 07/13/16 04:00 07/13/16 07:37 07/13/16 07:22 07/13/16 06:31 07/13/16 07:22 Intake and Output: 07/13/16 07/13/16 06:59 18:59 Intake Total 646 Output Total 450 Balance 196 - Medications Medications: Current Medications Acetaminophen (Tylenol 650 Mg Supp) 650 mg RC Q6H PRN PRN Reason: Fever >100.4 F Last Admin: 07/11/16 11:27 Dose: 650 mg Albuterol/Ipratropium (Duoneb 3 Mg/0.5 Mg (3 Ml) Ud) 3 ml IH Q2H PRN PRN Reason: Shortness of Breath Albuterol/Ipratropium (Duoneb 3 Mg/0.5 Mg (3 Ml) Ud) 3 ml IH [id number] [facility] [place] Last Admin: 07/13/16 07:14 Dose: 3 ml Enoxaparin Sodium (Lovenox) 30 mg SC DAILY [facility] [place] PRN Reason: Protocol Last Admin: 07/10/16 10:07 Dose: 30 mg Fentanyl (Fentanyl) 100 mcg IVP Q6 PRN PRN Reason: Pain, moderate (4-7) Last Admin: 07/13/16 07:22 Dose: 100 mcg Furosemide (Lasix) 40 mg IVP Q12 [facility] [place] Last Admin: 07/10/16 21:34 Dose: 40 mg Fentanyl Citrate (Fentanyl Citrate/Sodium Chloride 1 Mg/100 Ml) 100 mls @ 2 mls /hr IV .Q24H PRN; Protocol; 20 MCG/HR PRN Reason: TITRATE PER MD ORDER Last Titration: 07/11/16 07:17 Dose: 0 mcg/hr Midazolam 100 mg/100ml in NS (Midazolam 100 Mg/100ml In Ns) 100 mls @ 1 mls/hr IV .Q24H PRN; Protocol; 1 MG/HR PRN Reason: Agitation Last Titration: 07/11/16 07:17 Dose: 0 mg/hr Phenylephrine HCl 40 mg/ (Sodium Chloride) 254 mls @ 38.1 mls/hr IV .Q6H40M PRN ; Protocol; 100 MCG/MIN PRN Reason: TITRATE PER MD ORDER Last Titration: 07/11/16 07:15 Dose: 0 mcg/min Heparin Sodium/Sodium Chloride (Heparin 62610 Units/250ml 1/2 Normal Saline) 250 mls @ 9.144 mls/hr IV .Q24H PRN; Protocol; 18 UNITS/KG/HR PRN Reason: ADJUST RATE PER PROTOCOL Last Admin: 07/11/16 22:48 Dose: 8.128 mls/hr Doxycycline Hyclate 100 mg/ (Sodium Chloride) 100 mls @ 100 mls/hr IVPB Q12 MISSY PRN Reason: Protocol Last Admin: 07/12/16 22:00 Dose: 100 mls/hr MEROPENEM-0.9% SODIUM CHLORIDE (Meropenem 1g/Ns 100ml Ivpb) 100 mls @ 100 mls/ hr IVPB Q12 MISSY PRN Reason: Protocol Stop: 07/16/16 10:01 Last Admin: 07/12/16 22:13 Dose: 100 mls/hr Dexmedetomidine HCl (Precedex 4 Mcg/Ml (100 Ml)) 100 mls @ 2.563 mls/hr IV .Q24H PRN; Protocol; 0.2 MCG/KG/HR PRN Reason: Agitation Last Admin: 07/13/16 07:22 Dose: 2.563 mls/hr Methylprednisolone (Solu-Medrol) 40 mg IVP Q12 [facility] [place] Last Admin: 07/12/16 22:14 Dose: 40 mg Pantoprazole Sodium (Protonix Inj) 40 mg IVP DAILY [facility] [place] Last Admin: 07/12/16 09:28 Dose: 40 mg - Labs Labs: 07/13/16 06:00 07/13/16 06:00 PT 10.0 Seconds (9.9-11.8) 07/09/16 03:05 INR 0.93 (0.93-1.08) 07/09/16 03:05 APTT 48.5 Seconds (23.7-30.8) H 07/13/16 06:00 - Constitutional Appears: Other (Intubated, slightly sedated) - ENT Exam Additional comments: ET tube in place - Neck Exam Neck Exam: absent: Lymphadenopathy, Meningismus - Respiratory Exam Respiratory Exam: Decreased Breath Sounds - Cardiovascular Exam Cardiovascular Exam: Tachycardia, +S1, +S2 - GI/Abdominal Exam GI & Abdominal Exam: Soft. absent: Tenderness Assessment and Plan - Assessment and Plan (Free Text) Plan: Assessment Consider severe sepsis with hypoxic and ventilator-dependent respiratory failure (febrile and tachycardic) and acute renal failure (slowly improving), healthcare-associated (since it was 2 days since admission that he presented with sepsis syndrome), consider secondary to healthcare-associated pneumonia with possible gram positive cocci and/or gram negative bacilli Acute renal failure severe COPD, oxygen-dependent severe aortic stenosis and insufficiency history of postherpetic neuralgia Plan continue Doxycycline and Merrem (day 3) and given one dose of IV Vancomycin; cultures are negative so far; repeat PCT is slightly elevated at 0.73; will target 4-7 days of antibiotics Will continue to follow clinically Overall prognosis is poor
--- NOTE | 2016-07-13 09:43 | PN ---
DATE: 07/13/2016 SUBJECTIVE: The patient remains on the ventilator. He is not sedated. He is awake and alert. PHYSICAL EXAMINATION: VITAL SIGNS: Temperature is 98.6, pulse 152, respiratory rate 24/18, blood pressure 147/84. HEENT: Normocephalic, atraumatic. No JVD. CARDIOVASCULAR: Systolic ejection murmur at the lower left sternal border. Questionable S3 gallop. LUNGS: Crackles at both bases. Minimal rhonchi. Minimal wheezing. EXTREMITIES: Mild edema. No cyanosis, no clubbing. Calves are nontender to palpation. GASTROINTESTINAL: Abdomen is soft, nontender, nondistended. Bowel sounds are positive. SKIN: No acute rash. NEUROLOGIC: Limited at the present time. PERTINENT LABORATORY DATA: Chest x-ray was done this morning and reviewed. This morning's x-ray is similar to yesterday's film. However, again, the last few films are much improved compared to the original films. Arterial blood gas was done on assist control 18, tidal volume 350, FiO2 30%. Results are: pH 7.41, pCO2 of 51, pO2 of 79. IMPRESSION: 1. Respiratory failure. 2. End-stage chronic obstructive pulmonary disease. 3. Congestive heart failure. 4. Rapid atrial fibrillation, status post cardioversion. 5. Severe valvular heart disease. 6. Coronary artery disease. 7. Anemia. PLAN: The patient remains on the ventilator. He is not sedated this morning. He is currently awake and alert. Unfortunately, the patient is back in rapid atrial fibrillation. I did discuss the case with the nurse at length. The nurse will contact cardiology in reference to the cardiac arrhythmias. I did review the x-ray as above. The x-ray today is similar to yesterday's film, however, again, the films are much improved overall. I have also reviewed the arterial blood gas. There is normalization of the pH. There is less alveolar- arterial gradient. I will discuss weaning procedures with respiratory and the ICU team, when the patient is more stable. On physical exam, the patient remains in mild bronchospasm. I will continue with the current nebulizer treatments and low-dose intravenous steroids for now. The patient also remains on antibiotic therapy. There are no temperatures noted. There is a rising leukocytosis. Cardiology and infectious disease evaluations are noted. Unfortunately, the overall status/prognosis of this patient remains very poor. I will discuss the above with the entire ICU team in the next few moments. I will also discuss the above with the attending physician later this morning. Pravin Arroyo MD cc: [phone] TT: 07/13/2016 09:42:41 Confirmation # [id number] Dictation # [id number] en MTDD
[2016-07-13] MEDS ORDERED: LORAZEPAM IV PRN (09:50)
[2016-07-13] MEDS ORDERED: SODIUM CHLORIDE 0.9% IV PRN (09:50)
[2016-07-13] MEDS ORDERED: Midazolam 100 mg/100ml in NS 100 ML IV PRN (09:56)
--- NOTE | 2016-07-13 10:10 | RAD ---
HISTORY: f/u COMPARISON: No prior. FINDINGS: LUNGS: No focal consolidation. Probable calcified granuloma right lung base. PLEURA: Slight blunting both costophrenic angles which may reflect chronic pleural thickening or minimal pleural effusion. No pneumothorax. CARDIOVASCULAR: Normal heart size. ET tube and NG tube are unchanged in position. Right OSSEOUS STRUCTURES: No significant abnormalities. VISUALIZED UPPER ABDOMEN: Normal. OTHER FINDINGS: None. IMPRESSION: No acute infiltrate. Chronic pleural thickening versus small bilateral pleural effusions. Lines and tubes unchanged.
[2016-07-13] MEDS ORDERED: Ascorbic Acid 500 mg/5 ml Liq(50 ml) PO SCH (10:45)
[2016-07-13] MEDS ORDERED: Sodium Chloride 0.9% 500 ML IV STA (12:05)
--- NOTE | 2016-07-13 13:57 | CP.PCM.PN ---
Subjective - Date & Time of Evaluation Date of Evaluation: 07/13/16 Time of Evaluation: 13:00 - Subjective Subjective: Lethargic, minimally responsive, intubated Objective - Vital Signs/Intake and Output Vital Signs (last 24 hours): Temp Pulse Resp BP Pulse Ox 98.6 F 82 16 142/69 98 07/13/16 11:30 07/13/16 12:00 07/13/16 11:30 07/13/16 09:13 07/13/16 11:30 Intake and Output: 07/13/16 07/13/16 06:59 18:59 Intake Total 646 Output Total 450 250 Balance 196 -250 - Medications Medications: Current Medications Acetaminophen (Tylenol 650 Mg Supp) 650 mg RC Q6H PRN PRN Reason: Fever >100.4 F Last Admin: 07/11/16 11:27 Dose: 650 mg Albuterol/Ipratropium (Duoneb 3 Mg/0.5 Mg (3 Ml) Ud) 3 ml IH Q2H PRN PRN Reason: Shortness of Breath Albuterol/Ipratropium (Duoneb 3 Mg/0.5 Mg (3 Ml) Ud) 3 ml IH [id number] [facility] Last Admin: 07/13/16 13:19 Dose: 3 ml Ascorbic Acid (Vitamin C 500 Mg Tab) 250 mg PO DAILY [facility] Enoxaparin Sodium (Lovenox) 30 mg SC DAILY MISSY PRN Reason: Protocol Last Admin: 07/10/16 10:07 Dose: 30 mg Fentanyl (Fentanyl) 25 mcg IVP Q3 PRN PRN Reason: Pain, moderate (4-7) Furosemide (Lasix) 40 mg IVP Q12 [facility] Last Admin: 07/10/16 21:34 Dose: 40 mg Fentanyl Citrate (Fentanyl Citrate/Sodium Chloride 1 Mg/100 Ml) 100 mls @ 2 mls /hr IV .Q24H PRN; Protocol; 20 MCG/HR PRN Reason: TITRATE PER MD ORDER Last Titration: 07/11/16 07:17 Dose: 0 mcg/hr Phenylephrine HCl 40 mg/ (Sodium Chloride) 254 mls @ 38.1 mls/hr IV .Q6H40M PRN ; Protocol; 100 MCG/MIN PRN Reason: TITRATE PER MD ORDER Last Titration: 07/11/16 07:15 Dose: 0 mcg/min Heparin Sodium/Sodium Chloride (Heparin 44249 Units/250ml 1/2 Normal Saline) 250 mls @ 9.144 mls/hr IV .Q24H PRN; Protocol; 18 UNITS/KG/HR PRN Reason: ADJUST RATE PER PROTOCOL Last Titration: 07/13/16 13:32 Dose: 18 units/kg/hr Doxycycline Hyclate 100 mg/ (Sodium Chloride) 100 mls @ 100 mls/hr IVPB Q12 MISSY PRN Reason: Protocol Last Admin: 07/13/16 09:50 Dose: 100 mls/hr Dexmedetomidine HCl (Precedex 4 Mcg/Ml (100 Ml)) 100 mls @ 2.563 mls/hr IV .Q24H PRN; Protocol; 0.2 MCG/KG/HR PRN Reason: Agitation Last Titration: 07/13/16 13:19 Dose: 0.2 mcg/kg/hr diltiaZEM IVPB 100mg in NS (Cardizem 100mg In Ns) 100 mls @ 5 mls/hr IV .Q20H PRN; Protocol; 5 MG/HR PRN Reason: TITRATE PER MD ORDER Last Titration: 07/13/16 12:00 Dose: 0 mg/hr Meropenem 1g/NS 100mL IVPB (Meropenem 1g/Ns 100ml Ivpb) 100 mls @ 100 mls/hr IVPB Q8 MISSY PRN Reason: Protocol Stop: 07/18/16 14:01 Last Admin: 07/13/16 13:24 Dose: 100 mls/hr Midazolam 100 mg/100ml in NS (Midazolam 100 Mg/100ml In Ns) 100 mls @ 1 mls/hr IV .Q24H PRN; Protocol; 1 MG/HR PRN Reason: Anxiety Lorazepam (Ativan) 1 mg IVP Q6H PRN; Protocol PRN Reason: Anxiety Last Admin: 07/13/16 09:51 Dose: 1 mg Methylprednisolone (Solu-Medrol) 40 mg IVP Q12 MISSY Last Admin: 07/13/16 09:15 Dose: 40 mg Pantoprazole Sodium (Protonix Inj) 40 mg IVP DAILY [facility] Last Admin: 07/13/16 09:14 Dose: 40 mg - Labs Labs: 07/13/16 06:00 07/13/16 06:00 PT 10.0 Seconds (9.9-11.8) 07/09/16 03:05 INR 0.93 (0.93-1.08) 07/09/16 03:05 APTT 48.5 Seconds (23.7-30.8) H 07/13/16 06:00 - Constitutional Appears: No Acute Distress, Chronically Ill - Eye Exam Eye Exam: Normal appearance, PERRL - ENT Exam ENT Exam: Mucous Membranes Moist - Respiratory Exam Respiratory Exam: Decreased Breath Sounds, Rhonchi - Cardiovascular Exam Cardiovascular Exam: Irregular Rhythm, +S1, +S2 - GI/Abdominal Exam GI & Abdominal Exam: Soft, Diminished Bowel Sounds - Extremities Exam Extremities Exam: Normal Inspection - Neurological Exam Neurological Exam: Altered - Skin Skin Exam: Dry, Pallor Assessment and Plan - Assessment and Plan (Free Text) Assessment: 85 year old [place] male admitted with COPD exacerbation, respiratory failure, sepsis. Patient daughter and I spoke today via phone. Family has checked to move ahead with terminal extubation tomorrow. Patient's son and daughter will be in tomorrow at 11am to proceed with terminal extubation and the withdrawal of life saving medical interventions, including tube feeding, IV fluids, antibiotics and additional testing. Family wants comfort care only. Hospice services also explained in detail. Family wants patient evaluated for GIP services. They are agreeable to meeting with hospice membership sales representative. Time spent in discussion with daughter regarding goals of care and end of life planning, 20 minutes Plan: As discussed with Dr. Craig Hospice evaluation for GIP services.
--- NOTE | 2016-07-13 23:12 | PN ---
DATE: 07/11/2016 The patient remains in the ICU. The patient is on ventilator, off sedation. The patient is on IV Cardizem drip and gastric tube feeding. He was hypertensive this morning, treated with dose of hydralazine with improved blood pressure. PHYSICAL EXAMINATION: His blood pressure during examination was 142/69, his pulse was 130, irregular. His O2 saturation is 99%. The patient is on FIO2 30%. The patient is awake, more responsive this morning. HEAD: Normocephalic, atraumatic. Oral mucosa is dry. NECK: Supple. Persistent skin ecchymosis around the neck area. LUNGS: With decreased breath sounds and few rhonchi. HEART: With irregular rhythm, rate of 130 per minute. ABDOMEN: Soft, nontender, nondistended. EXTREMITIES: With no edema. Diffuse ecchymosis on upper extremities. DIAGNOSTIC TESTS: Stable CBC, however, increase of WBC to 20,000 this morning, hemoglobin 11.7, hematocrit 37.2, platelet count 137. Chemistry: Stable electrolytes. He has slightly improved renal function with BUN 54 and creatinine 0.9. His liver enzymes are slightly improved and trending down this morning, but blood cultures are negative. ASSESSMENT: 1. Respiratory failure with hypercapnia, somewhat stable. 2. End-stage lung disease with respiratory support, and on ventilator. 3. Pneumonia. 4. Atrial fibrillation with rapid ventricular response. 5. Acute renal failure. 6. Anemia. PLAN OF TREATMENT: Case was discussed with nonprofit financial controller. 1. Respiratory: Will remain on ventilator, continue current setting. Continue bronchodilators. Careful with sedation in case of agitation. 2. Cardiac. Monitoring blood pressure. Continue Cardizem drip for rate control. Continue heparin drip. 3. ID. Will be maintained on doxycycline and Merrem. Case was discussed yesterday with family. The patient is currently DNR, and will contact palliative nurse for further discussion with family regarding plans for possible extubation tomorrow. Vidhi Shea MD cc: [id number] TT: 07/13/2016 23:12:32 Confirmation # [id number] Dictation # [id number] jn MTDD
[2016-07-14] MEDS: Albuterol-Ipratrop 3 mg / 0.5 (3 ml) UD IH SCH ×3 (02:35→13:12)
[2016-07-14] MEDS: Meropenem 1g/NS 100mL IVPB 100 ML IVPB SCH (05:01)
[2016-07-14 06:57] LABS: ARTERIAL BLOOD GAS HCO3 31.2 mmol/L (21-28); ARTERIAL BLOOD GAS O2 CAPACITY 13.9 mL/dl (16-24); ARTERIAL BLOOD GAS O2 CONTENT 13.7 ML/dl (15-23); ARTERIAL BLOOD GAS PH 7.44 (7.35-7.45); ARTERIAL BLOOD HGB O2 SAT 95.7 % (95.0-98.0); CARBOXYHEMOGLOBIN 1.8 % (0.5-1.5); HHB 1.4 % (0-5); METHEMOGLOBIN 1.1 % (0.0-3.0)
[2016-07-14 07:18] LABS: GRAN # 10.73 (1.4-6.5); GRAN % 93.5 % (50.0-68.0); HEMATOCRIT 33.5 % (42.0-52.0); LYMPH # 0.2 (1.2-3.4); LYMPH % 2.1 % (22.0-35.0); MEAN CELL VOLUME 90.3 fL (80.0-105.0); MEAN PLATELET VOLUME 10.4 fl (7.0-11.0); MONO # 0.5 (0.1-0.6); MONO % 4.4 % (1.0-6.0); PLATELET COUNT 127 [, 10^3/uL] (120.0-450.0); RED CELL DISTRIBUTION WIDTH 16.6 % (11.5-14.5); WHITE BLOOD COUNT 11.5 [, 10^3/ul] (4.5-11.0)
[2016-07-14 07:27] LABS: ADD MANUAL DIFF? NO
--- NOTE | 2016-07-14 07:29 | PN ---
DATE: 07/14/2016 SUBJECTIVE: The patient remains on the ventilator. He is currently sedated. PHYSICAL EXAMINATION: VITAL SIGNS: Temperature is 97.3, pulse on the monitor is 101, respiratory rate 18/18, last blood pressure recorded -- 147/84. HEENT: Normocephalic, atraumatic. No JVD. CARDIOVASCULAR: Systolic ejection murmur at the lower left sternal border, questionable S3 gallop. LUNGS: Crackles at both bases. Minimal rhonchi. Minimal wheezing. EXTREMITIES: Mild edema. No cyanosis, no clubbing. GASTROINTESTINAL: Abdomen is soft, nondistended. Bowel sounds are positive. SKIN: No acute rash. NEUROLOGIC: Limited at the present time. PERTINENT LABORATORY DATA: Chest x-ray was done this morning and reviewed. There is no significant change from the previous film. Arterial blood gas was ordered -- not in the computer at the present time. IMPRESSION: 1. Respiratory failure. 2. End-stage chronic obstructive pulmonary disease. 3. Congestive heart failure. 4. Rapid atrial fibrillation, status post cardioversion. 5. Severe valvular heart disease. 6. Coronary artery disease. 7. Anemia. PLAN: The patient remains on the ventilator. He is currently sedated. I did discuss the case with the night nurse at length. I have also reviewed the last input by Elizabeth Fitzpatrick (palliative care). The patient may be terminally extubated and transitioned to hospice in the near future. I did review the x- ray as above. There is no significant change from the previous film. I am also awaiting the morning arterial blood gas -- discussed with respiratory. On physical exam, there is less bronchospasm noted. I will continue with the current nebulizer treatments and current intravenous steroids for now. I would also continue with the antibiotic therapy as per infectious disease. Input by Dr. Quan is noted. Unfortunately, the overall status/prognosis of this chronically ill elderly patient remains very poor. I will discuss the above with the entire ICU team in the next few moments. I will also discuss the above with the attending physician later this morning. Pravin Arroyo MD cc: [phone] TT: 07/14/2016 07:28:54 Confirmation # [id number] Dictation # [id number] darrell VARGAS
[2016-07-14 07:38] LABS: ALB/GLOB RATIO 1.1 (1.1-1.8); ALKALINE PHOSPHATASE 76 U/L (38-133); ALT/SGPT 181 U/L (7-56); AST/SGOT 72 U/L (15-59); BILIRUBIN,TOTAL 0.4 mg/dL (0.2-1.3); BLOOD UREA NITROGEN 55 mg/dL (7-21); CALCIUM 7.8 mg/dL (8.4-10.5); CARBON DIOXIDE 32 mmol/L (21-33); CHLORIDE 113 mmol/L (98-107); GFR AFRICAN-AMERICAN > 60; GLUCOSE,RANDOM 157 mg/dL (70-110); POTASSIUM 4.5 mmol/L (3.6-5.0); SODIUM 149 mmol/L (132-148); TOTAL PROTEIN 5.1 g/dL (5.8-8.3)
--- NOTE | 2016-07-14 08:57 | CP.CCUPN ---
CCU Subjective - Physician Review Events Since Last Encounter (Free Text): 07/14/16 08:53 No acute events overnight Remains intubated, w/o much progress. On precedex GGT for comfort. On SBT this a.m once more awake. CCU Objective - Vital Signs / Intake & Output Vital Signs (Last 4 hours): Vital Signs Temp Pulse Resp BP Pulse Ox 07/14/16 08:00 97.1 F L 62 16 97/47 L 97 07/14/16 07:00 22 98 Intake and Output (Last 8hrs): Intake & Output 07/13/16 07/14/16 07/14/16 22:59 06:59 14:59 Intake Total 748 704 Output Total 650 Balance 748 54 Weight 123 lb Intake: IV 388 404 Heparin drip 95 84 Antibiotics 200 200 Precedex 38 60 Cardizem 55 60 Tube Feeding 360 300 Output: Urine 650 Urethral ([place]) 650 Other: Voiding Method Indwelling Catheter # Bowel Movements 0 - Physical Exam Physical Exam Limitations: Positive for: Altered Mental Status Head: Positive for: Atraumatic, Normocephalic Pupils: Positive for: PERRL Extroacular Muscles: Positive for: EOMI Conjunctiva: Positive for: Normal Mouth: Positive for: Moist Mucous Membranes (ETT in place ), Dry Pharnyx: Positive for: Normal Neck: Positive for: Normal Range of Motion Respiratory/Chest: Positive for: Respiratory Distress (Intubated, poor breath sounds, not moving great air b/l ), Rales, Other. Negative for: Accessory Muscle Use Cardiovascular: Positive for: Regular Rate and Rhythm, Normal S1, S2, Tachycardic. Negative for: Murmurs Abdomen: Positive for: Normal Bowel Sounds. Negative for: Tenderness, Distention, Peritoneal Signs Back: Positive for: Normal Inspection Upper Extremity: Positive for: Normal Inspection. Negative for: Cyanosis, Edema Lower Extremity: Positive for: Normal Inspection. Negative for: Edema Neurological: Positive for: GCS=15, CN II-XII Intact Skin: Positive for: Warm, Dry, Other (Ecchymosis ). Negative for: Rashes Psychiatric: Positive for: Alert, Oriented x 3, Normal Insight - Medications Active Medications: Active Medications Generic Name Dose Route Start Last Admin Trade Name Freq PRN Reason Stop Dose Admin Acetaminophen 650 mg 07/11/16 05:02 07/11/16 11:27 Tylenol 650 Mg Supp RC 650 mg Q6H PRN Administration Fever >100.4 F Albuterol/Ipratropium 3 ml 07/09/16 04:45 Duoneb 3 Mg/0.5 Mg (3 Ml) Ud IH Q2H PRN Shortness of Breath Albuterol/Ipratropium 3 ml 07/13/16 07:13 07/14/16 07:43 Duoneb 3 Mg/0.5 Mg (3 Ml) Ud IH 3 ml [id number] MISSY Administration Ascorbic Acid 250 mg 07/13/16 10:45 Vitamin C 500 Mg Tab PO DAILY MISSY Fentanyl 25 mcg 07/13/16 09:10 Fentanyl IVP Q3 PRN Pain, moderate (4-7) Heparin Sodium/Sodium Chloride 250 mls @ 9.144 mls/hr 07/10/16 17:21 07/13/16 20:33 Heparin 66849 Units/250ml 1/2 Normal Saline IV 16 units/kg/hr .Q24H PRN Titration ADJUST RATE PER PROTOCOL Protocol 18 UNITS/KG/HR Doxycycline Hyclate 100 mg/ 100 mls @ 100 mls/hr 07/11/16 10:00 07/13/16 22:20 Sodium Chloride IVPB 100 mls/hr Q12 MISSY Administration Protocol Dexmedetomidine HCl 100 mls @ 2.563 mls/hr 07/13/16 07:09 07/13/16 13:19 Precedex 4 Mcg/Ml (100 Ml) IV 0.2 mcg/kg/hr .Q24H PRN Titration Agitation Protocol 0.2 MCG/KG/HR diltiaZEM IVPB 100mg in NS 100 mls @ 5 mls/hr 07/13/16 09:12 07/13/16 22:13 Cardizem 100mg In Ns IV 5 mg/hr .Q20H PRN Titration TITRATE PER MD ORDER Protocol 5 MG/HR Meropenem 1g/NS 100mL IVPB 100 mls @ 100 mls/hr 07/13/16 14:00 07/14/16 05:01 Meropenem 1g/Ns 100ml Ivpb IVPB 07/18/16 14:01 100 mls/hr Q8 MISSY Administration Protocol Midazolam 100 mg/100ml in NS 100 mls @ 1 mls/hr 07/13/16 09:56 Midazolam 100 Mg/100ml In Ns IV .Q24H PRN Anxiety Protocol 1 MG/HR Lorazepam 1 mg 07/13/16 07:50 07/14/16 04:59 Ativan IVP 1 mg Q6H PRN Administration Anxiety Protocol Methylprednisolone 40 mg 07/11/16 10:00 07/13/16 21:41 Solu-Medrol IVP 40 mg Q12 MISSY Administration Pantoprazole Sodium 40 mg 07/11/16 10:00 07/13/16 09:14 Protonix Inj IVP 40 mg DAILY MISSY Administration - Patient Studies Lab Studies: Microbiology Studies 07/11/16 05:30 Blood Culture - Preliminary Blood NO GROWTH AFTER 3 DAYS 07/11/16 05:30 Blood Culture - Preliminary Blood NO GROWTH AFTER 3 DAYS Lab Studies 07/14/16 07/14/16 07/14/16 Range/Units 07:00 06:50 02:00 WBC 11.5 H D (4.5-11.0) 10^3/ul RBC 3.71 (3.5-6.1) 10^6/uL Hgb 10.4 L (14.0-18.0) gm/dL Hct 33.5 L (42.0-52.0) % MCV 90.3 (80.0-105.0) fL MCH 28.0 (25.0-35.0) pg MCHC 31.0 (31.0-37.0) g/dl RDW 16.6 H (11.5-14.5) % Plt Count 127 (120.0-450.0) 10^3/uL MPV 10.4 (7.0-11.0) fl Gran % 93.5 H (50.0-68.0) % Lymph % (Auto) 2.1 L (22.0-35.0) % [place] % (Auto) 4.4 (1.0-6.0) % Eos % (Auto) 0.0 L (1.5-5.0) % Baso % (Auto) 0.0 (0.0-3.0) % Gran # 10.73 H (1.4-6.5) Lymph # 0.2 L (1.2-3.4) [place] # 0.5 (0.1-0.6) Eos # 0.0 (0.0-0.7) Baso # 0.00 (0.0-2.0) K/mm3 APTT 53.1 H 73.0 H* (23.7-30.8) Seconds pCO2 46 H (35-45) mm/Hg pO2 93.0 (80-100) mm/Hg HCO3 31.2 H (21-28) mmol/L ABG pH 7.44 (7.35-7.45) ABG Total CO2 32.6 H (22-28) mmol.L ABG O2 Saturation 98.6 H (95-98) % ABG O2 Content 13.7 L (15-23) ML/dl ABG Base Excess 6.3 H (-2.0-3.0) mmol/L ABG Hemoglobin 10.1 L (11.7-17.4) g/dL ABG Carboxyhemoglobin 1.8 H (0.5-1.5) % POC ABG HHb (Measured) 1.4 (0-5) % ABG Methemoglobin 1.1 (0.0-3.0) % ABG O2 Capacity 13.9 L (16-24) mL/dl Hgb O2 Saturation 95.7 (95.0-98.0) % FiO2 30.0 % Sodium 149 H (132-148) mmol/L Potassium 4.5 (3.6-5.0) mmol/L Chloride 113 H (98-107) mmol/L Carbon Dioxide 32 (21-33) mmol/L Anion Gap 9 L (10-20) BUN 55 H (7-21) mg/dL Creatinine 0.8 (0.5-1.4) mg/dL Est GFR ( Amer) > 60 Est GFR (Non-Af Amer) > 60 Random Glucose 157 H (70-110) mg/dL Calcium 7.8 L (8.4-10.5) mg/dL Total Bilirubin 0.4 (0.2-1.3) mg/dL AST 72 H (15-59) U/L ALT 181 H (7-56) U/L Alkaline Phosphatase 76 (38-133) U/L Total Protein 5.1 L (5.8-8.3) g/dL Albumin 2.6 L (3.0-4.8) g/dL Globulin 2.4 gm/dL Albumin/Globulin Ratio 1.1 (1.1-1.8) // Range/Units 19:53 WBC (4.5-11.0) 10^3/ul RBC (3.5-6.1) 10^6/uL Hgb (14.0-18.0) gm/dL Hct (42.0-52.0) % MCV (80.0-105.0) fL MCH (25.0-35.0) pg MCHC (31.0-37.0) g/dl RDW (11.5-14.5) % Plt Count (120.0-450.0) 10^3/uL MPV (7.0-11.0) fl Gran % (50.0-68.0) % Lymph % (Auto) (22.0-35.0) % [place] % (Auto) (1.0-6.0) % Eos % (Auto) (1.5-5.0) % Baso % (Auto) (0.0-3.0) % Gran # (1.4-6.5) Lymph # (1.2-3.4) [place] # (0.1-0.6) Eos # (0.0-0.7) Baso # (0.0-2.0) K/mm3 APTT 93.7 H* (23.7-30.8) Seconds pCO2 (35-45) mm/Hg pO2 (80-100) mm/Hg HCO3 (21-28) mmol/L ABG pH (7.35-7.45) ABG Total CO2 (22-28) mmol.L ABG O2 Saturation (95-98) % ABG O2 Content (15-23) ML/dl ABG Base Excess (-2.0-3.0) mmol/L ABG Hemoglobin (11.7-17.4) g/dL ABG Carboxyhemoglobin (0.5-1.5) % POC ABG HHb (Measured) (0-5) % ABG Methemoglobin (0.0-3.0) % ABG O2 Capacity (16-24) mL/dl Hgb O2 Saturation (95.0-98.0) % FiO2 % Sodium (132-148) mmol/L Potassium (3.6-5.0) mmol/L Chloride (98-107) mmol/L Carbon Dioxide (21-33) mmol/L Anion Gap (10-20) BUN (7-21) mg/dL Creatinine (0.5-1.4) mg/dL Est GFR ( Amer) Est GFR (Non-Af Amer) Random Glucose (70-110) mg/dL Calcium (8.4-10.5) mg/dL Total Bilirubin (0.2-1.3) mg/dL AST (15-59) U/L ALT (7-56) U/L Alkaline Phosphatase (38-133) U/L Total Protein (5.8-8.3) g/dL Albumin (3.0-4.8) g/dL Globulin gm/dL Albumin/Globulin Ratio (1.1-1.8) Laboratory Results - last 24 hr 07/13/16 07/14/16 07/14/16 19:53 02:00 06:50 WBC RBC Hgb Hct MCV MCH MCHC RDW Plt Count MPV Gran % Lymph % (Auto) [place] % (Auto) Eos % (Auto) Baso % (Auto) Gran # Lymph # [place] # Eos # Baso # APTT 93.7 H* 73.0 H* pCO2 46 H pO2 93.0 HCO3 31.2 H ABG pH 7.44 ABG Total CO2 32.6 H ABG O2 Saturation 98.6 H ABG O2 Content 13.7 L ABG Base Excess 6.3 H ABG Hemoglobin 10.1 L ABG Carboxyhemoglobin 1.8 H POC ABG HHb (Measured) 1.4 ABG Methemoglobin 1.1 ABG O2 Capacity 13.9 L Hgb O2 Saturation 95.7 FiO2 30.0 Sodium Potassium Chloride Carbon Dioxide Anion Gap BUN Creatinine Est GFR ( Amer) Est GFR (Non-Af Amer) Random Glucose Calcium Total Bilirubin AST ALT Alkaline Phosphatase Total Protein Albumin Globulin Albumin/Globulin Ratio 07/14/16 07:00 WBC 11.5 H D RBC 3.71 Hgb 10.4 L Hct 33.5 L MCV 90.3 MCH 28.0 MCHC 31.0 RDW 16.6 H Plt Count 127 MPV 10.4 Gran % 93.5 H Lymph % (Auto) 2.1 L [place] % (Auto) 4.4 Eos % (Auto) 0.0 L Baso % (Auto) 0.0 Gran # 10.73 H Lymph # 0.2 L [place] # 0.5 Eos # 0.0 Baso # 0.00 APTT 53.1 H pCO2 pO2 HCO3 ABG pH ABG Total CO2 ABG O2 Saturation ABG O2 Content ABG Base Excess ABG Hemoglobin ABG Carboxyhemoglobin POC ABG HHb (Measured) ABG Methemoglobin ABG O2 Capacity Hgb O2 Saturation FiO2 Sodium 149 H Potassium 4.5 Chloride 113 H Carbon Dioxide 32 Anion Gap 9 L BUN 55 H Creatinine 0.8 Est GFR ( Amer) > 60 Est GFR (Non-Af Amer) > 60 Random Glucose 157 H Calcium 7.8 L Total Bilirubin 0.4 AST 72 H ALT 181 H Alkaline Phosphatase 76 Total Protein 5.1 L Albumin 2.6 L Globulin 2.4 Albumin/Globulin Ratio 1.1 Review of Systems - Review of Systems Systems not reviewed;Unavailable: Intubated Critical Care Progress Note - Ventilator Checklist Daily Sedation Vacation: Yes Daily Assessment of Readiness to Wean: Yes Daily Spontaneous Breathing Trial: Yes PUD Prophalyxis: Yes DVT Prophylaxis: Yes - Vent Settings MODE:: ASSIST CONTROL Assessment/Plan - Assessment and Plan (Free Text) Assessment: Acute hypercarbic, hypoxic respiratory failure Intubated due to Increased WOB and increased CO2 Unable to wean daily due to end stage CHF, , COPD On BD, Solumedrol BID, AC/VC ventilation. Plans to try P.S trial today once Precedex is lowered, Likely will not pass SBt and safe extubation Family had plans for terminal extubation , DNR/DNI. Will d/w once they arrive. Family aware of the porr medical conditions that have worsened during this hospital stay, and have chosen to not be aggresive in their treatment. dvt P PPI CC time 65 min
[2016-07-14] MEDS: MethylPREDNISolone 40 mg Vial IVP SCH (09:14)
--- NOTE | 2016-07-14 09:27 | PN ---
DATE: 07/14/2016 SUBJECTIVE: The patient is seen earlier this morning, intubated on a ventilator in the ICU 128, bed 6. PHYSICAL EXAMINATION: VITAL SIGNS: Temperature is 97, blood pressure is 97/47, respiratory rate on the vent, a heart rate of 62. HEENT: ET tube in place. NECK: Supple. LUNGS: Have decreased breath sounds. HEART: Normal S1, S2. ABDOMEN: Soft. LABORATORY DATA: Reveals a white count from this morning is 11,500, hemoglobin of 10, platelets of 1 27. Coagulation is noted. Chemistries reveal the BUN of 55, creatinine of 0.8, procalcitonin from is 0.73 and toxicology is digoxin level is noted to be at 0.7. Microbiology reveals the patient' s blood cultures are negative and sputum culture is normal oral carly. Nasal MRSA screen is negative for MRSA. Review of the orders reveals the patient to be on doxycycline and meropenem. Dr. Arroyo's note is r silvano from this morning. Discussion is possibly terminal extubation and transition to hospice in a patient with end-stage chronic obstructive lung disease. This morning's chest x-ray is pending. ASSESSMENT AND PLAN: This is an 85-year-old male with severe sepsis, hypoxia and ventilator-dependen t respiratory failure and acute kidney injury and renal failure and healthcare-associated possible gr am-positive cocci, possible gram-negative mayito sepsis, pneumonia with healthcare-associated pneumonia and severe oxygen dependent chronic obstructive pulmonary disease, severe aortic stenosis, and aortic insufficiency on day #4 of meropenem and doxycycline. A dose of vancomycin was given. All cultures are negative. We will discontinue the antibiotics if the patient is terminally extubated and on sup portive care. Awaiting for final decision. Anup Mora MD cc: [id number] TT: 07/14/2016 09:26:51 Confirmation # [id number] Dictation # [id number]
--- NOTE | 2016-07-14 11:59 | RAD ---
HISTORY: f/u COMPARISON: 07/10/2016 FINDINGS: The endotracheal tube terminates 2.5 cm proximal to the berta. The nasogastric tube terminates in the stomach. The right IJV line terminates in the SVC. LUNGS: The lungs are hyperinflated and there is peribronchial thickening with chronic changes in both lungs. There is no focal consolidation. PLEURA: No significant pleural effusion identified, no pneumothorax apparent. CARDIOVASCULAR: The heart is normal in size. Atherosclerotic aortic arch calcifications are present. . OSSEOUS STRUCTURES: No significant abnormalities. VISUALIZED UPPER ABDOMEN: Normal. OTHER FINDINGS: None. IMPRESSION: COPD. No active pulmonary disease. Stable position of line and tubes.
[2016-07-14] MEDS ORDERED: Morphine PCA 1 mg/ml (25ml) 25 ML IV PRN (12:20)
[2016-07-14] MEDS ORDERED: Scopolamine 1.5 mg/24 hr Patch TD SCH (12:30)
[2016-07-14 12:31] VITALS: BP 166/64; PULSE 82; RESP 19; TEMP 97.4; O2SAT 95
--- NOTE | 2016-07-14 14:33 | PN ---
DATE: 07/14/2016 SUBJECTIVE: The patient remains in intensive care unit. The patient was just presently extubated as per family request. The patient is currently on oxygen 5 liters through nasal cannula. Breathing heavily and desaturating. PHYSICAL EXAMINATION: VITAL SIGNS: Presently, he is afebrile this morning, his pulse is 100 regular, respiratory rate 24, and oxygen saturation ranges between 82 and 80. GENERAL: The patient is drowsy but arousable. Oral mucosa is dry. NECK: Supple, severe diffuse ecchymosis of her neck and upper extremities noted. LUNGS: With decreased breath sounds, some rhonchi. HEART: With regular rhythm, tachycardia. ABDOMEN: Soft, nontender, nondistended. EXTREMITIES: With no edema. LABORATORY DATA: CBC this morning is significant for improved WBC, down to 11.5 , hemoglobin stable at 10.4, hematocrit 33.5. Chemistry with elevated sodium of 149, potassium 4.5, chloride 113. His renal function is also stable, BUN 55 , creatinine 0.8. Liver enzymes are elevated, but trending down. Chest x-ray this morning showed no acute infiltration, chronic COPD findings. ASSESSMENT: 1. Respiratory failure with hypercapnia. 2. End-stage chronic lung disease. 3. Sepsis. 4. Atrial fibrillation. 5. Acute renal failure. 6. Anemia. PLAN OF TREATMENT: Case was discussed again with the son. Family agreed to DNR and DNI. The patient was extubated. Will do supportive care.We will continue O2 , change to Ventimask, continue IV antibiotics for now. Close monitoring of patient's respiratory status.Prognosis is very poor. Vidhi Shea MD cc: [id number] TT: 07/14/2016 14:31:59 Confirmation # [id number] Dictation # [id number] sadia VARGAS
--- NOTE | 2016-07-14 15:53 | CP.PCM.PRO ---
Pronouncement of Note - Clinical Findings Physical Exam: No Response Verbal/Painful Stimuli, Absent Peripheral Pulses{ Carotid & Femoral}, Absent Heart & Breath Sounds, No Pupillary Light Reflex, No Corneal Reflex, Pupils Fixed & Dilated, Absence of Vital Signs - Pronouncement Time Time of Pronouncement of : 15:31 - Notifications Pronouncement Notifications: Family Notified
== END 2016-07-14 11:30 | disposition hospice, inpatient (51) | DRG 870 ==
LOC: ED 02:35 → ERH 04:39 → CCU 06:05
PROVIDERS: ADMIT Family Medicine; ATTEND Family Medicine
PROC: 5A09357 Assistance with Respiratory Ventilation, Less than 24 Consecutive Hours, Continuous Positive Airway Pressure (ICD-10-PCS; 2016-07-09)
PROC: 3E0F7GC Introduction of Other Therapeutic Substance into Respiratory Tract, Via Natural or Artificial Opening (ICD-10-PCS; 2016-07-09)
PROC: 5A1955Z Respiratory Ventilation, Greater than 96 Consecutive Hours (ICD-10-PCS; principal; 2016-07-10)
PROC: 0BH17EZ Insertion of Endotracheal Airway into Trachea, Via Natural or Artificial Opening (ICD-10-PCS; 2016-07-10)
PROC: 0CJS8ZZ Inspection of Larynx, Via Natural or Artificial Opening Endoscopic (ICD-10-PCS; 2016-07-10)
PROC: 05HM33Z Insertion of Infusion Device into Right Internal Jugular Vein, Percutaneous Approach (ICD-10-PCS; 2016-07-10)
DX: A41.9 Sepsis, unspecified organism (principal); R65.20 Severe sepsis without septic shock; J96.02 Acute respiratory failure with hypercapnia; J96.01 Acute respiratory failure with hypoxia; J18.9 Pneumonia, unspecified organism; J44.0 Chronic obstructive pulmonary disease with (acute) lower respiratory infection; N17.9 Acute kidney failure, unspecified; R57.0 Cardiogenic shock; I11.0 Hypertensive heart disease with heart failure; I50.9 Heart failure, unspecified; E87.2 Acidosis; B02.29 Other postherpetic nervous system involvement; J44.1 Chronic obstructive pulmonary disease with (acute) exacerbation; I27.2 Other secondary pulmonary hypertension; I25.10 Atherosclerotic heart disease of native coronary artery without angina pectoris; D64.9 Anemia, unspecified; I35.2 Nonrheumatic aortic (valve) stenosis with insufficiency; M81.0 Age-related osteoporosis without current pathological fracture; K59.09 Other constipation; M19.90 Unspecified osteoarthritis, unspecified site; I48.0 Paroxysmal atrial fibrillation; Z66 Do not resuscitate; F17.210 Nicotine dependence, cigarettes, uncomplicated; Z51.5 Encounter for palliative care; Z99.81 Dependence on supplemental oxygen; Z79.52 Long term (current) use of systemic steroids; Z91.19 Patient's noncompliance with other medical treatment and regimen

== ENCOUNTER 2016-07-14 11:30 | Inpatient (IN) | payer OTHER | END 2016-07-14 15:31 | DRG 871 | LOC: CCU 11:30 | PROVIDERS: ADMIT Family Medicine; ATTEND Family Medicine | DX: A41.9 Sepsis, unspecified organism (principal); J18.9 Pneumonia, unspecified organism; R65.20 Severe sepsis without septic shock; J96.02 Acute respiratory failure with hypercapnia; J96.01 Acute respiratory failure with hypoxia; N17.9 Acute kidney failure, unspecified; Z51.5 Encounter for palliative care; Z66 Do not resuscitate; J44.0 Chronic obstructive pulmonary disease with (acute) lower respiratory infection; I27.2 Other secondary pulmonary hypertension; I48.91 Unspecified atrial fibrillation; I50.9 Heart failure, unspecified; J44.1 Chronic obstructive pulmonary disease with (acute) exacerbation; D64.9 Anemia, unspecified; I35.2 Nonrheumatic aortic (valve) stenosis with insufficiency; Z87.891 Personal history of nicotine dependence ==